=== PATIENT | male | born 1950 | race Caucasian/White ===

== ENCOUNTER 2017-06-02 08:04 | Outpatient (RCR) | payer MEDICARE, OTHER ==
[2017-03-10] MEDS: DEXAMETHASONE SOD PHOS 10MG/ML IVP PRN (08:46)
[2017-03-10 09:51] VITALS: BP 134/86
[2017-03-10] MEDS: HEPARIN FLSH (PORT) 500 UN/5ML IVP PRN (12:19)
--- NOTE | 2017-03-10 14:46 | ONC Progress Note - NP.Halsey ---
Patient History Date of Service Mar 10, 2017 Reason For Visit/HPI Patient is seen with his today for follow-up of his Waldenstrm's macroglobulinemia. Patient is seen for Rituxan. He continues to have pain in the left leg from neuropathy which remains stable. Patient continues on fentanyl patch and oxycodone for breakthrough pain as needed. He occasionally has episodes of insomnia. He has increased fatigue and weakness. Problem List (1) Waldenstrom macroglobulinemia (2) Neuropathic pain Oncology History DIAGNOSES 1. IgM paraproteinemia, highly suspicious for Waldenstrom macroglobulinemia. 2. 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 3. Pain due to neuropathy. CHIEF COMPLAINT The patient is here today for followup of his Waldenstrom macroglobulinemia. ONCOLOGY HISTORY The patient is a 66-year-old male who was followed in the past for erythrocytosis, treated with phlebotomies and his counts normalized. He presented recently with worsening neuropathy of the right lower extremity. He has been treated for gout with allopurinol and for the neuropathy with gabapentin. He saw a neurologist who diagnosed him with neuropathy and during his evaluation for neuropathy the patient was found to have 0.6 g/dL IgM lambda light chains specificity of monoclonal protein. He was also found to have serum IgM level of 751. Patient has been evaluated by Dr. Cornejo who requested a bone marrow test which was done on August 20, 2014 and reports of the bone marrow was hypercellular for age, 50% to 75% with trilineage hematopoiesis with maturation and mild dyspneic cardiopoiesis. There was no evidence of bone marrow involvement by lymphoplasmacytic lymphoma. His peripheral blood did reveal the presence of rare circulating plasmacytoid and large granular lymphocytes. No flow cytometry, FISH, cytogenetic, or molecular studies done from the bone marrow. CT chest, abdomen, and pelvis done on August 18, 2014 showed normal sized spleen, normal appearing lymph nodes in the chest, abdomen, and pelvis with right inguinal hernia containing omentum with small hypodense lesion within the left lobe of the liver medial segment most likely represents a focal fatty infiltration. On August 15, 2014 patient has beta 2-microglobulin which was normal at 1.7. Serum viscosity was normal at 1.29. IgG was normal at 843. IgA was normal at 123. IgM was high at 551. Hepatitis surface antigen was negative. Hepatitis B core IgM was also negative. Hepatitis A antibody IgM was negative. Hepatitis C antibody by RICKY was negative. Hepatitis B core was negative. Uric acid was normal at 4.3. Cold agglutinin was also negative. Skeletal bone survey done on August 25, 2014 came back inconclusive. A 24-hour urine showed normal kappa free light chain at 1.29 and lambda free light chain at 1.92. Beta-2 microglobulin was normal at 1.9. IgG was normal at 826, IgA was normal at 130, IgM was high at 490. Uric acid was normal at 4.4. The patient has been evaluated at the [facility] under the care of Dr. iNck Mejia. The patient had sural nerve biopsy which came back negative. He has also a good bone marrow aspiration biopsy, which was also negative, but molecular studies showed Mutation detected at C.794T more than C of NYD88 mutation, suggestive of Waldenstrom macroglobulinemia. The patient started treatment with ibrutinib 420 mg daily in November 2014, which was stopped in July 2015 because of progression of his disease. The patient started treatment with CARD chemotherapy with carfilzomib, rituximab and dexamethasone on May 14, 2015. The patient is here today for his cycle #6 of CARD chemotherapy for his Waldenstrom macroglobulinemia. His general condition is improving gradually. His neuropathic pain resolved completely, but on decreasing the dose of fentanyl patch from 25 to 12 mcg q.72h., his pain restarted becoming more annoying to him, but currently with 25 mcg, the patient is free of pain and free of any complaints currently. 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 The patient started treatment with cyclophosphamide with rituximab and dexamethasone on September 25, 2015. The patient quit taking cyclophosphamide because of the side-effect and he is maintained on rituximab and dexamethasone with stabilization of his IgM level and monoclonal protein. Patient is maintained on Rituxan every 4 weeks. Medical History Family History: FH: Alzheimers disease MOTHER FH: COPD (chronic obstructive pulmonary disease) MOTHER FH: brain aneurysm MOTHER FH: diabetes mellitus Maternal Grandmother FH: leukemia FATHER Psychosocial History Smoking History: No (States he chews 1 can every week) Smoking Status: Former Smoker Exposure to Second Hand Smoke?: No Medications and Allergies Active Scripts Fentanyl (Fentanyl) 1 Each Patch.td72, 50 MCG TD Q72H, #10 MCG Prov:JOSEJOSE BUSTOS Meri [facility], ONC 03/10/17 Hydrocodone Bit/Acetaminophen 7.5/300 (HYDROCODON-ACETAMINOPH 7.5-300) 1 Each Tablet, 1 EACH PO Q6H for pain, #60 TAB Prov:JOSE GARCIA Meri [facility], ONC 03/01/17 Pregabalin (LYRICA) 150 Mg Capsule, 150 MG PO BID, #60 CAPSULE 4 Refills Prov:JOSEJOSE J [facility], ONC 12/07/16 Zolpidem Tartrate (ZOLPIDEM TARTRATE) 10 Mg Tablet, 1 TAB PO QHS, #30 TAB 4 Refills Prov:JOSEJOSE J [facility], ONC 11/11/16 Tramadol Hcl (TRAMADOL HCL) 50 Mg Tablet, 50-100 MG PO PRN, #60 TAB 1 Refill Prov:JOSEJOSE J [facility], ONC 11/03/16 Duloxetine Hcl (CYMBALTA) 60 Mg Capsule.dr, 60 MG PO QDAY, #30 CAP 9 Refills Prov:JOSE GARCIA Meri [facility], ONC 08/15/16 Levofloxacin 750 Mg Tab (LEVAQUIN 750 MG TAB) 750 Mg Tablet, 750 MG PO DAILY, # 7 TAB Prov:JOSE GARCIA Meri [facility], ONC 06/27/16 Temazepam (TEMAZEPAM) 15 Mg Capsule, 15 MG PO QHS, #30 CAPSULE 2 Refills Prov:JOSEJOSE J [facility], ONC 05/13/16 Sucralfate (CARAFATE) 1 Gm Tablet, 1 TAB PO ACHS, #60 TAB 0 Refills Prov:YANET CASTILLO MD 05/03/16 Lorazepam (LORAZEPAM) 1 Mg Tab, 1 TAB PO Q4-6H Y for ANXIETY, #30 TAB 1 Refill Prov:SUHAIL GARCIAAIDEE Jerez [facility], ONC 02/08/16 Reported Medications Hydrocodone Bit/Acetaminophen (NORCO 5-325 TABLET) 1 Each Tablet, 1 EACH PO Q4H , TAB 03/03/17 Tamsulosin Hcl (FLOMAX) 0.4 Mg Cap.er.24h, 0.4 MG PO DAILY, CAP 05/06/16 Pantoprazole Sodium (PANTOPRAZOLE SODIUM) 40 Mg Tablet.dr, 40 MG PO BID, TAB.SR 05/06/16 [Magnesium] No Conflict Check, 500 MG PO QDAY 04/11/16 Atorvastatin (LIPITOR) 80 Mg Tab, 1 TAB PO QDAY, TAB 04/11/16 Metoprolol Succinate (METOPROLOL SUCCINATE) 50 Mg Tab.er.24h, 1 TAB PO QAM, TAB 04/11/16 Aspirin (ASPIRIN) 81 Mg Tab.chew, 81 MG PO QDAY, TAB.CHEW 08/31/15 Cholecalciferol (Vitamin D3) (D3-50) 50,000 Unit Capsule, 09823 UNIT PO DAILY, CAPSULE 08/15/14 Ubidecarenone (CO Q-10) 200 Mg Capsule, 200 MG PO QDAY, CAPSULE 08/15/14 [place]-3 Fatty Acids (FISH OIL) 300 Mg Capsule, 300 MG PO BID, CAPSULE 08/15/14 Allopurinol (ALLOPURINOL) 100 Mg Tablet, 300 MG PO QDAY, TAB 08/15/14 Allergies: Coded Allergies: No Known Drug Allergies (Unverified , 04/11/16) Review of System/Physical Exam Review of Systems All Systems Reviewed/Normal: Yes, Except as Noted Hematologic: Positive for Fatigue, Positive for Weakness Musculoskeletal: Positive for Muscle Pain (mostly concentrated to the left lower extremity nerve pain) Neurologic: Numbness of Feet Psychiatric: Depression Physical Exam Vital Signs Temperature: 98.2 Pulse: 66 BP Systolic: 134 BP Diastolic: 86 Respiratory Rate: 18 O2 SAT: 92 O2 Delivery: Room Air Height (inches) 67.50 Weight lb: 216 Weight oz: 5.0 Weight Kg (Rafa): 101.29 Pain: 6 ECOG Score: 1 General: Stable, Well Developed, Well Nourished, Not In Acute Distress HEENT: No Trauma, No Conjunctivitis, No Icterus Neck: Supple Lungs: Clear to Auscultation Heart: Regular Rate, Regular Rhythm Abdomen: Soft and Nontender, No Hepatosplenomegaly Extremities: No Cyanosis, No Clubbing, No Edema Psychiatric: Mood appears normal, Affect appears normal Skin: No Skin Rashes, No Bruising Diagnostic Studies Diagnostic Studies Laboratory Item Value Date Time White Blood Count 4.5 k/uL 03/01/17 0830 Hemoglobin 15.8 g/dL 03/01/17 0830 Platelet Count 201 K/uL 03/01/17 0830 Protein Electrophoresis (T) 5.90 g/dL L 03/01/17 0830 Total Protein 5.6 gm/dl L 03/01/17 0830 Gamma Globulins (%) 0.32 g/dL L 03/01/17 0830 Prostate Specific Antigen 1.56 ng/ml 03/01/17 0830 Immunoglobulin G 239 mg/dL L 03/01/17 0830 Immunoglobulin A 20 mg/dL L 03/01/17 0830 Free [place] Light Chains, Quant 0.22 mg/dL L 03/01/17 0830 Assessment and Plan Assessment & Plan ASSESSMENT 1. Waldenstrom macroglobulinemia with IgM paraproteinemia with IgM lambda monoclonal protein. Patient currently on treatment with rituximab as he could not tolerate cyclophosphamide. Patient started treatment with ibrutinib with initial response, then progressed after that. He started treatment with CaRD chemotherapy with Kyprolis, rituximab and dexamethasone between May 14, 2015 through August 28, 2015, and the patient received six cycles with response, but he developed Kyprolis-induced cardiomyopathy, so the treatment was stopped. He then received treatment with rituximab, dexamethasone and cyclophosphamide , but he stopped cyclophosphamide because of the side effects. He is maintained with rituximab and dexamethasone with stabilization of his monoclonal protein. He then stopped treatment for two months but started to have pain in his left leg from his neuropathy, so the patient resumed treatment with rituximab again in November 2016. He has had some improvement but it is minimal. He will continue rituximab on monthly intervals and will follow in a month from now with CBC, chem panel, LDH uric acid and myeloma profile. I did discuss the possibility of nerve ablation and his will call [facility] and discuss the procedure with Dr. Mo. SPEP is 0.31 g/dL of protein in the gamma region 2. Neuropathy due to Waldenstrom macroglobulinemia. He is getting better with resuming rituximab. He is currently on Lyrica, Fentanyl and [place]. We will continue the same treatment. I will refill fentanyl today. Patient will visit with Dr. Mo regarding nerve pain and possible nerve ablation 3. Gout with gouty arthritis on allopurinol. 4. Hypertension, on treatment. 5. Gastroesophageal reflux disease, on Protonix. PLAN 1. Rituximab today and continue monthly treatments 2. Patient to return in one month with CBC, chem panel, LDH, uric acid and myeloma profile. 3. Patient is to contact us for any new concerns or complaints I personally spent a total of 20 minutes. Of that 20 minutes was counseling/ coordination of patient's care. See my note above for details. Copies to: KEARA MO MD, NANCY J [facility], ONC Mar 10, 2017 14:46
[2017-03-30 08:22] VITALS: BP 124/76
[2017-03-30 08:38] LABS: PLATELET COUNT, AUTOMATED 200 K/uL (150-450)
--- NOTE | 2017-04-07 08:40 | ONC Progress Note - NP.Halsey ---
Patient History Date of Service Apr 07, 2017 Reason For Visit/HPI Patient is seen with his today for follow-up of his Waldenstrm's macroglobulinemia. Patient continues on Rituxan infused every 21 days. His immunoglobulin levels remain low. He continues to have pain in the left leg from neuropathy which has increased over the last month. He is following with neurology for further evaluation and recommendations. Patient continues on fentanyl patch and oxycodone for breakthrough pain as needed. He is also on Lyrica. Patient is having some difficulty with ambulation and significant difficulty with sleeping due to the pain. He has used ice packs which is about the only form of management that decreases the pain. No other symptoms today. Problem List (1) Left leg pain (2) Neuropathic pain (3) Waldenstrom macroglobulinemia Oncology History DIAGNOSES 1. IgM paraproteinemia, highly suspicious for Waldenstrom macroglobulinemia. 2. 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 3. Pain due to neuropathy. CHIEF COMPLAINT The patient is here today for followup of his Waldenstrom macroglobulinemia. ONCOLOGY HISTORY The patient is a 66-year-old male who was followed in the past for erythrocytosis, treated with phlebotomies and his counts normalized. He presented recently with worsening neuropathy of the right lower extremity. He has been treated for gout with allopurinol and for the neuropathy with gabapentin. He saw a neurologist who diagnosed him with neuropathy and during his evaluation for neuropathy the patient was found to have 0.6 g/dL IgM lambda light chains specificity of monoclonal protein. He was also found to have serum IgM level of 751. Patient has been evaluated by Dr. Cornejo who requested a bone marrow test which was done on August 20, 2014 and reports of the bone marrow was hypercellular for age, 50% to 75% with trilineage hematopoiesis with maturation and mild dyspneic cardiopoiesis. There was no evidence of bone marrow involvement by lymphoplasmacytic lymphoma. His peripheral blood did reveal the presence of rare circulating plasmacytoid and large granular lymphocytes. No flow cytometry, FISH, cytogenetic, or molecular studies done from the bone marrow. CT chest, abdomen, and pelvis done on August 18, 2014 showed normal sized spleen, normal appearing lymph nodes in the chest, abdomen, and pelvis with right inguinal hernia containing omentum with small hypodense lesion within the left lobe of the liver medial segment most likely represents a focal fatty infiltration. On August 15, 2014 patient has beta 2-microglobulin which was normal at 1.7. Serum viscosity was normal at 1.29. IgG was normal at 843. IgA was normal at 123. IgM was high at 551. Hepatitis surface antigen was negative. Hepatitis B core IgM was also negative. Hepatitis A antibody IgM was negative. Hepatitis C antibody by RICKY was negative. Hepatitis B core was negative. Uric acid was normal at 4.3. Cold agglutinin was also negative. Skeletal bone survey done on August 25, 2014 came back inconclusive. A 24-hour urine showed normal kappa free light chain at 1.29 and lambda free light chain at 1.92. Beta-2 microglobulin was normal at 1.9. IgG was normal at 826, IgA was normal at 130, IgM was high at 490. Uric acid was normal at 4.4. The patient has been evaluated at the [facility] under the care of Dr. Nick Mejia. The patient had sural nerve biopsy which came back negative. He has also a good bone marrow aspiration biopsy, which was also negative, but molecular studies showed Mutation detected at C.794T more than C of NYD88 mutation, suggestive of Waldenstrom macroglobulinemia. The patient started treatment with ibrutinib 420 mg daily in November 2014, which was stopped in July 2015 because of progression of his disease. The patient started treatment with CARD chemotherapy with carfilzomib, rituximab and dexamethasone on May 14, 2015. The patient is here today for his cycle #6 of CARD chemotherapy for his Waldenstrom macroglobulinemia. His general condition is improving gradually. His neuropathic pain resolved completely, but on decreasing the dose of fentanyl patch from 25 to 12 mcg q.72h., his pain restarted becoming more annoying to him, but currently with 25 mcg, the patient is free of pain and free of any complaints currently. 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 The patient started treatment with cyclophosphamide with rituximab and dexamethasone on September 25, 2015. The patient quit taking cyclophosphamide because of the side-effect and he is maintained on rituximab and dexamethasone with stabilization of his IgM level and monoclonal protein. Patient is maintained on Rituxan every 4 weeks. Medical History Family History: FH: Alzheimers disease MOTHER FH: COPD (chronic obstructive pulmonary disease) MOTHER FH: brain aneurysm MOTHER FH: diabetes mellitus Maternal Grandmother FH: leukemia FATHER Psychosocial History Social History He is with a daughter Occupational History He is currently retired Smoking History: No (States he chews 1 can every week) Smoking Status: Former Smoker Exposure to Second Hand Smoke?: No Medications and Allergies Active Scripts Hydrocodone Bit/Acetaminophen 7.5/300 (HYDROCODON-ACETAMINOPH 7.5-300) 1 Each Tablet, 1 EACH PO Q6H for pain, #60 TAB Prov:JOSE GARCIA [facility] ONC 04/04/17 Zolpidem Tartrate (ZOLPIDEM TARTRATE) 10 Mg Tablet, 1 TAB PO QHS, #30 TAB 4 [facility] 03/30/17 Fentanyl (Fentanyl) 1 Each Patch.td72, 50 MCG TD Q72H, #10 MCG [facility] 03/10/17 Pregabalin (LYRICA) 150 Mg Capsule, 150 MG PO BID, #60 CAPSULE 4 Refills [facility] 12/07/16 Tramadol Hcl (TRAMADOL HCL) 50 Mg Tablet, 50-100 MG PO PRN, #60 TAB 1 [facility] 11/03/16 Duloxetine Hcl (CYMBALTA) 60 Mg Capsule.dr, 60 MG PO QDAY, #30 CAP 9 Refills Prov:JOSE GARCI[facility]RENU, ONC 08/15/16 Levofloxacin 750 Mg Tab (LEVAQUIN 750 MG TAB) 750 Mg Tablet, 750 MG PO DAILY, # 7 TAB Prov:JOSE GARCIA [facility], ONC 06/27/16 Temazepam (TEMAZEPAM) 15 Mg Capsule, 15 MG PO QHS, #30 CAPSULE 2 [facility]ills [facility] 05/13/16 Sucralfate (CARAFATE) 1 Gm Tablet, 1 TAB PO ACHS, #60 TAB 0 Refills Prov:YANET CASTILLO MD 05/03/16 Lorazepam (LORAZEPAM) 1 Mg Tab, 1 TAB PO Q4-6H Y for ANXIETY, #30 TAB 1 Refill Prov:JOSE GARCIA [facility], [facility] 02/08/16 Reported Medications Hydrocodone Bit/Acetaminophen (NORCO 5-325 TABLET) 1 Each Tablet, 1 EACH PO Q4H , TAB 03/03/17 Tamsulosin Hcl (FLOMAX) 0.4 Mg Cap.er.24h, 0.4 MG PO DAILY, CAP 05/06/16 Pantoprazole Sodium (PANTOPRAZOLE SODIUM) 40 Mg Tablet.dr, 40 MG PO BID, TAB.SR 05/06/16 [Magnesium] No Conflict Check, 500 MG PO QDAY 04/11/16 Atorvastatin (LIPITOR) 80 Mg Tab, 1 TAB PO QDAY, TAB 04/11/16 Metoprolol Succinate (METOPROLOL SUCCINATE) 50 Mg Tab.er.24h, 1 TAB PO QAM, TAB 04/11/16 Aspirin (ASPIRIN) 81 Mg Tab.chew, 81 MG PO QDAY, TAB.CHEW 08/31/15 Cholecalciferol (Vitamin D3) (D3-50) 50,000 Unit Capsule, 99463 UNIT PO DAILY, CAPSULE 08/15/14 Ubidecarenone (CO Q-10) 200 Mg Capsule, 200 MG PO QDAY, CAPSULE 08/15/14 [place]-3 Fatty Acids (FISH OIL) 300 Mg Capsule, 300 MG PO BID, CAPSULE 08/15/14 Allopurinol (ALLOPURINOL) 100 Mg Tablet, 300 MG PO QDAY, TAB 08/15/14 Allergies: Coded Allergies: No Known Drug Allergies (Unverified , 04/11/16) Review of System/Physical Exam Review of Systems All Systems Reviewed/Normal: Yes, Except as Noted Musculoskeletal: Positive for Muscle Pain, Positive for Other (stream nerve pain noted on the left leg typically from the knee down to the foot which is increased over the last 2 weeks) Neurologic: Numbness of Feet (left lower extremity), Tingling of Feet (left foot) Psychiatric: Depression (related to ongoing pain) Physical Exam Vital Signs Temperature: 96.6 Pulse: 75 BP Systolic: 124 BP Diastolic: 76 Respiratory Rate: 14 O2 SAT: 91 O2 Delivery: Room Air Height (inches) 67.50 Weight lb: 216 Weight oz: 5.0 Weight Kg (Rafa): 97.323206 Pain: 7 ECOG Score: 1 General: Stable, Well Developed, Well Nourished, Not In Acute Distress HEENT: No Trauma Neck: Supple Lungs: Clear to Auscultation Heart: Regular Rate, Regular Rhythm, No Gallops Abdomen: Soft and Nontender, No Hepatosplenomegaly, No Masses Extremities: No Clubbing, No Edema Psychiatric: Mood appears normal, Affect appears normal, Other (spouse is with him today and is very supportive) Skin: No Skin Rashes, No Bruising Diagnostic Studies Diagnostic Studies Laboratory Laboratory Tests 03/30/17 08:24 Laboratory Tests 03/30/17 08:24: White Blood Count 6.8, Red Blood Count 5.21, Hemoglobin 17.0, Hematocrit 47.8, Mean Corpuscular Volume 91.7, Mean Corpuscular Hemoglobin 32.6, Mean Corpuscular Hemoglobin Concent 35.6, Red Cell Distribution Width 12.9, Platelet Count 200, Mean Platelet Volume 8.1, Neutrophils (%) (Auto) 63.8, Lymphocytes (% ) (Auto) 20.9, Monocytes (%) (Auto) 12.0, Eosinophils (%) (Auto) 2.2, Basophils (%) (Auto) 1.1, Nucleated RBC Relative Count (auto) 0.3, Neutrophils # (Auto) 4.3, Lymphocytes # (Auto) 1.4, Monocytes # (Auto) 0.8, Eosinophils # (Auto) 0.2 , Basophils # (Auto) 0.1, Nucleated RBC Absolute Count (auto) 0.02, Peripheral Blood Smear No, Sodium Level 141, Potassium Level 3.9, Chloride Level 103, Carbon Dioxide Level 29, Blood Urea Nitrogen 15, Creatinine 1.10, Glomerular Filtration Rate Calc > 60.0, Random Glucose 100, Uric Acid 4.0, Calcium Level 9.3, Total Bilirubin 2.1, Aspartate Amino Transf (AST/SGOT) 23, Alanine Aminotransferase (ALT/SGPT) 34, Alkaline Phosphatase 127, Lactate Dehydrogenase 433, Protein Electrophoresis (T) 6.20, Total Protein 6.2, Albumin 3.9, Albumin % (PEP) 4.28, Jieef-7-Svcnebupt 0.32, Cuacu-4-Pynanwqhg 0.58, Beta Globulins 0.69, Qnab-0-Oczpngkodphuf 1.9, Gamma Globulins (%) 0.33, Immunoglobulin G 274, Immunoglobulin A 21, Immunoglobulin M 51, TAN & Serum PEP Interpretation See note, Serum Immunofixation Tan done, Free Zeb Light Chains, Quant 0.20, Free Lambda Light Chains, Quant 0.61, Free Zeb/Lambda Light Chain Ratio 0.33 Assessment and Plan Assessment & Plan ASSESSMENT 1. Waldenstrom macroglobulinemia with IgM paraproteinemia with IgM lambda monoclonal protein. Patient currently on treatment with rituximab as he could not tolerate cyclophosphamide. Patient started treatment with ibrutinib with initial response, then progressed after that. He started treatment with CaRD chemotherapy with Kyprolis, rituximab and dexamethasone between May 14, 2015 through August 28, 2015, and the patient received six cycles with response, but he developed Kyprolis-induced cardiomyopathy, so the treatment was stopped. He then received treatment with rituximab, dexamethasone and cyclophosphamide , but he stopped cyclophosphamide because of the side effects. He is maintained with rituximab and dexamethasone with stabilization of his monoclonal protein. He then stopped treatment for two months but started to have pain in his left leg from his neuropathy, so the patient resumed treatment with rituximab again in November 2016. He has had some improvement but it is minimal. He will continue rituximab on monthly intervals and will follow in a month from now with CBC, chem panel, LDH uric acid and myeloma profile. I have discussed possible nerve ablation or further evaluation of his nerve pain. Patient is scheduled to follow with Dr. Overton on 04/21/2017. She is also following with a housecleaner floor 2. Neuropathy due to Waldenstrom macroglobulinemia. Review slowly he noticed improvement with Rituxan however more recently pain has increased. He is currently on Lyrica, Fentanyl and [place]. Further review with Dr. Overton later this month 3. Gout with gouty arthritis on allopurinol. 4. Hypertension, on treatment. 5. Gastroesophageal reflux disease, on Protonix. PLAN 1. Rituximab today and continue monthly treatments 2. Patient to return in one month with CBC, chem panel, LDH, uric acid and myeloma profile. 3. Patient is to contact us for any new concerns or complaints I personally spent a total of 20 minutes. Of that 20 minutes was counseling/ coordination of patient's care. See my note above for details. JOSE GARCIA [facility], ONC Apr 07, 2017 08:40
[2017-04-07] MEDS: NS(*) 0.9% 100 ML BAG 100 ML IVPB PRN (09:02)
[2017-04-07] MEDS: DEXAMETHASONE SOD PHOS 10MG/ML IVP PRN (09:02)
[2017-04-07 09:12] VITALS: BP 116/77
[2017-04-07] MEDS: HEPARIN FLSH (PORT) 500 UN/5ML IVP PRN (13:09)
[2017-04-07 13:12] VITALS: BP 131/88
[2017-04-25 08:14] VITALS: BP 116/60
[2017-04-25 08:24] LABS: PLATELET COUNT, AUTOMATED 206 K/uL (150-450)
[2017-05-05 08:31] VITALS: BP 98/80
[2017-05-05] MEDS: NS(*) 0.9% 100 ML BAG 100 ML IVPB PRN (09:07)
[2017-05-05] MEDS: DEXAMETHASONE SOD PHOS 10MG/ML IVP PRN (09:07)
[2017-05-05] MEDS: HEPARIN FLSH (PORT) 500 UN/5ML IVP PRN (09:08)
[2017-05-05 12:41] VITALS: BP 119/72
--- NOTE | 2017-05-05 16:46 | ONCOLOGY FOLLOW UP NOTE ---
EVENT DATE: May 05, 2017 DIAGNOSES 1. IgM paraproteinemia, highly suspicious for Waldenstrom macroglobulinemia. 2. 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 3. Pain due to neuropathy. CHIEF COMPLAINT The patient is here today for followup of his Waldenstrom macroglobulinemia, on treatment with rituximab. ONCOLOGY HISTORY The patient is a 66-year-old male who was followed in the past for erythrocytosis, treated with phlebotomies and his counts normalized. He presented recently with worsening neuropathy of the right lower extremity. He has been treated for gout with allopurinol and for the neuropathy with gabapentin. He saw a neurologist who diagnosed him with neuropathy and during his evaluation for neuropathy the patient was found to have 0.6 g/dL IgM lambda light chains specificity of monoclonal protein. He was also found to have serum IgM level of 751. Patient has been evaluated by Dr. Cornejo who requested a bone marrow test which was done on August 20, 2014 and reports of the bone marrow was hypercellular for age, 50% to 75% with trilineage hematopoiesis with maturation and mild dyspneic cardiopoiesis. There was no evidence of bone marrow involvement by lymphoplasmacytic lymphoma. His peripheral blood did reveal the presence of rare circulating plasmacytoid and large granular lymphocytes. No flow cytometry, FISH, cytogenetic, or molecular studies done from the bone marrow. CT chest, abdomen, and pelvis done on August 18, 2014 showed normal sized spleen, normal appearing lymph nodes in the chest, abdomen, and pelvis with right inguinal hernia containing omentum with small hypodense lesion within the left lobe of the liver medial segment most likely represents a focal fatty infiltration. On August 15, 2014 patient has beta 2-microglobulin which was normal at 1.7. Serum viscosity was normal at 1.29. IgG was normal at 843. IgA was normal at 123. IgM was high at 551. Hepatitis surface antigen was negative. Hepatitis B core IgM was also negative. Hepatitis A antibody IgM was negative. Hepatitis C antibody by RICKY was negative. Hepatitis B core was negative. Uric acid was normal at 4.3. Cold agglutinin was also negative. Skeletal bone survey done on August 25, 2014 came back inconclusive. A 24-hour urine showed normal kappa free light chain at 1.29 and lambda free light chain at 1.92. Beta-2 microglobulin was normal at 1.9. IgG was normal at 826, IgA was normal at 130, IgM was high at 490. Uric acid was normal at 4.4. The patient has been evaluated at the [facility] under the care of Dr. Nick Mejia. The patient had sural nerve biopsy which came back negative. He has also a good bone marrow aspiration biopsy, which was also negative, but molecular studies showed Mutation detected at C.794T more than C of NYD88 mutation, suggestive of Waldenstrom macroglobulinemia. The patient started treatment with ibrutinib 420 mg daily in November 2014, which was stopped in July 2015 because of progression of his disease. The patient started treatment with CARD chemotherapy with carfilzomib, rituximab and dexamethasone on May 14, 2015. The patient is here today for his cycle #6 of CARD chemotherapy for his Waldenstrom macroglobulinemia. His general condition is improving gradually. His neuropathic pain resolved completely, but on decreasing the dose of fentanyl patch from 25 to 12 mcg q.72h., his pain restarted becoming more annoying to him, but currently with 25 mcg, the patient is free of pain and free of any complaints currently. 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 The patient started treatment with cyclophosphamide with rituximab and dexamethasone on September 25, 2015. The patient quit taking cyclophosphamide because of the side-effect and he is maintained on rituximab and dexamethasone with stabilization of his IgM level and monoclonal protein. HISTORY OF PRESENT ILLNESS Patient is here today for followup of his Waldenstrom macroglobulinemia on treatment with rituximab. He is doing fine currently except for occasional nausea and vomiting and constipation. He has pain in his hands from arthritis, but he has worsening pain in the left leg and left foot with tingling which is getting worse, and the patient is followed by neuro-oncologist at [facility] for that and he is under investigation currently. Other than that he is really doing fine and stable. PAST MEDICAL HISTORY 1. Hypertension. 2. Hypertriglyceridemia. 3. Gout. 4. Gouty arthritis. 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 PAST SURGICAL HISTORY 1. Cholecystectomy. 2. Appendectomy. 3. Bilateral hip arthroplasties. 4. Knee arthroscopy x2. 5. Right foot surgery. FAMILY HISTORY Father had chronic leukemia, most probably CLL. SOCIAL HISTORY Patient is . He has 2 daughters. 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 He drinks alcohol socially. He chews tobacco, but denies smoking tobacco and denies any abuse of illicit drugs. ALLERGIES No known drug allergies. CURRENT MEDICATIONS 1. Amitriptyline 50 mg at bedtime. 2. Fentanyl patch 25 mcg q.72h. 3. Ambien 12.5 mg at bedtime p.r.n. 4. Lyrica 50 mg two tablets at bedtime. 5. Ativan 1 mg q.4-6h. p.r.n. for anxiety. 6. Lipitor 80 mg at bedtime. 7. Vitamin D3 at 50,000 units orally daily. 8. CoQ10 at 200 mg daily. REVIEW OF SYSTEMS CONSTITUTIONAL: He has excessive sweating. HEENT: Ears: No tinnitus or hearing problem. Nose: No nasal discharge or epistaxis. Throat: No sore throat or mouth ulcers. Eyes: No diplopia or visual changes. GASTROINTESTINAL: Patient has nausea, vomiting and constipation occasionally. MUSCULOSKELETAL: He has pain in the hands from arthritis. NEUROLOGICAL: He has achy pain in the left leg and left foot with tingling. RESPIRATORY: He has occasional shortness of breath. No cough, expectoration or hemoptysis. CARDIOVASCULAR: No chest pain, orthopnea, or paroxysmal nocturnal dyspnea (PND) . No edema. No palpitations. GENITOURINARY: No hematuria or dysuria. HEMATOLOGIC/LYMPHATIC: No bleeding or easy bruising. He is weak, tired, and fatigued. No enlarged lymph nodes. SKIN: No skin rash or lumps. PSYCHIATRIC: No anxiety or depression. PHYSICAL EXAMINATION GENERAL: Looks stable. Well-developed, well-nourished, and in no acute distress. VITAL SIGNS: Blood pressure 98/80, pulse 90 per minute, respirations 16 per minute, temperature 97, pulse ox 89% on room air. HEENT: Head: Atraumatic. No sinus tenderness to palpation. Eyes: No icterus or conjunctivitis. Mouth and throat: No oral thrush or mucositis. NECK: Supple. No cervical or supraclavicular lymphadenopathy. LUNGS: Clear to auscultation and percussion bilaterally. HEART: Regular rate and rhythm. No gallops, murmurs, clicks or rubs. ABDOMEN: Soft and lax. No tenderness. No hepatosplenomegaly. No masses. EXTREMITIES: No cyanosis, clubbing or edema. LYMPHATICS: No peripheral lymphadenopathy. NEUROLOGICAL: Conscious, alert and oriented times three. No focal motor or sensory deficits. PSYCHIATRIC: Mood and affect appear normal. SKIN: No skin rash, bruise or purpuric eruption. DIAGNOSTIC DATA CBC showed white count 5.4, hemoglobin 16.5, hematocrit 47.6, platelets 206, 000. Chem panel totally normal except total bilirubin of 1.5. IgG level is low at 287, IgA is 26, IgM 49, which is down from 51. [place] free light chain is normal at 0.1 and lambda free light chain is normal at 0.67. Serum protein immunoelectrophoresis shows a faint band in IgM lambda. ASSESSMENT 1. Waldenstrom macroglobulinemia with IgM paraproteinemia with IgM lambda monoclonal protein. Patient currently on treatment with rituximab, as he could not tolerate cyclophosphamide with that. Patient started treatment with ibrutinib with initial response, then progressed after that. He started treatment with CaRD chemotherapy with Kyprolis, rituximab and dexamethasone between May 14, 2015 through August 28, 2015, and the patient received six cycles with response, but he developed Kyprolis-induced cardiomyopathy, so the treatment was stopped after that. He received after that treatment with rituximab, dexamethasone and cyclophosphamide, but he stopped cyclophosphamide because of the side effects, and he is maintained after that with rituximab and dexamethasone with stabilization of his monoclonal protein. His treatment with rituximab was stopped for two months, but he started to have the pain in his left leg again from his neuropathy, so the patient restarted on treatment with rituximab again in November 2016. Recently he has worsening pain in his left leg and left foot from his neuropathy, and the patient is followed at [facility] for that right now. His monoclonal protein with IgM lambda actually is under control currently with rituximab therapy, so I am planning to proceed with his rituximab at monthly intervals. I will see him again in one month with CBC, chem panel, LDH uric acid and myeloma profile. 2. Neuropathy due to Waldenstrom macroglobulinemia with worsening pain currently. Patient is under investigation at [facility]. 3. Gout with gouty arthritis, on allopurinol. 4. Hypertension, on treatment. 5. Gastroesophageal reflux disease, on Protonix. PLAN 1. Rituximab therapy today. 2. Patient to return in one month with CBC, chem panel, LDH, uric acid and myeloma profile. 3. Patient is to contact us for any new concerns or complaints. MTDD
[2017-05-24 10:29] LABS: PLATELET COUNT, AUTOMATED 172 K/uL (150-450)
[2017-05-24 10:40] VITALS: BP 100/67
[~2017-06-02] VITALS: Ht 171.4 cm; Wt 100.7 kg
[~2017-06-02 08:04] MED LIST: ACETAMINOPHEN 325 MG TAB PO PRN; ALE70 PO; ALLO100T70 PO; ALTEPLASE RECOMB 2 MG VIAL IVP PRN; AMIT-106 PO; AMIT-108 PO; ASPI-715 PO; ASPI81TA94 PO; ATR80PT PO; CEP500 PO; CYCL50CA PO; DEX4 PO; DEXTROSE 5%(*) 100 ML BAG 100 ML IVPB PRN; DOCU-416 PO; DULO30CA35 PO; DULO60CA56 PO; ESOM40CA42 PO; EZET1TAB61 PO; EZET1TAB70 PO; FAM20 PO; FENT-17 TD; FENT-19 TD; FENT-60 TD; FENT1PAT40 TD; FOLI20CA2 PO; GABA-549 PO; GOLYTE PO; HYDR-2952 PO; HYDR-4308 PO; HYDR-4309 PO; HYDR-6016 PO; IBU800 PO; LAC100PT PO; LEV500 PO; LEVO750T44 PO; LIDOCAINE/SOD BICARB 8.4% SYR ID PRN; LISI5TAB25 PO; LOR1 PO; LOR5/325 PO; LOR7.5/325 PO; LORA-1456 PO; LOSA-57 PO; MAGNESIUM PO; MET50 PO; METO50TA19 PO; METOPROLOL; METXL50 PO; MULT-1335 PO; MULT1CAP59 PO; NIA500 PO; NS(*) 0.9% 500 ML BAG 500 ML IV PRN; OMEG300C PO; ONDA8TAB94 PO; OXY10 PO; PANT40TA65 PO; PHENA200 PO; PREG100C44 PO; PREG150C33 PO; PREG50CA48 PO; PROC10TA4 PO; RAME8TAB43 PO; RITUXIMAB IV ONE; SIMV-49 PO; SIMVASTATIN; SUCR1TAB85 PO; TAMS0.4C25 PO; TEMA-1 PO; TRA50 PO; TRAM-420 PO; TRAZ-163 PO; UBID200C21 PO; VAL80 PO; VALS1TAB61 PO; WAR5 PO; WARF10TA29 PO; WATER STERILE 10 ML VIAL IVP PRN; ZOLP-350 PO; ZOLP-358 PO; ZOLP12.546 PO; [UNRECOGNIZED DRUG - CODE] PO; [UNRECOGNIZED DRUG - OTHER] IV ONE; diphenhydrAMINE 25 MG CAP PO PRN
[2017-06-02 08:11] VITALS: BP 106/81
[2017-06-02] MEDS: DEXAMETHASONE SOD PHOS 10MG/ML IVP PRN (08:43)
[2017-06-02] MEDS ORDERED: [UNRECOGNIZED DRUG - OTHER] IV ONE (09:30)
[2017-06-02] MEDS ORDERED: RITUXIMAB IV ONE (09:30)
--- NOTE | 2017-06-02 10:37 | ONC Progress Note - NP.Halsey ---
Patient History Date of Service Jun 02, 2017 Reason For Visit/HPI Patient is seen with his today for follow-up of his Waldenstrm's macroglobulinemia. He recently was ill with flulike symptoms and was treated with Tamiflu through his primary care provider. Patient reports that over the last several days he feels like his symptoms have completely resolved. Patient continues on Rituxan infused every 21 days. His immunoglobulin levels remain low. He continues to have pain in the left leg from neuropathy which has increased over the last month. He has followed with neurology at the [facility] with no recommendations. He is currently scheduled to follow with per meter bone and joint and will complete an MRI of the back, lumbar spine. Patient denies any pain in the back or spine at this time but continues to have the radiating pain. Patient continues on fentanyl patch and oxycodone for breakthrough pain as needed. He is also on Lyrica and 150 over grams twice daily. He is interested in trying to see if an increased dose will help his symptoms. He is weak and fatigued. Patient reports that he tolerates Rituxan therapy without difficulty but it does cause fatigue for 2-3 days post infusion Problem List (1) Waldenstrom macroglobulinemia (2) Left leg pain (3) Neuropathic pain Oncology History DIAGNOSES 1. IgM paraproteinemia, highly suspicious for Waldenstrom macroglobulinemia. 2. 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 3. Pain due to neuropathy. CHIEF COMPLAINT The patient is here today for followup of his Waldenstrom macroglobulinemia. ONCOLOGY HISTORY The patient is a 66-year-old male who presented with neuropathy of the lower extremity. He has been treated for gout with allopurinol and for the neuropathy with gabapentin. He saw a neurologist who diagnosed him with neuropathy and during his evaluation for neuropathy the patient was found to have 0.6 g/dL IgM lambda light chains specificity of monoclonal protein. He was also found to have serum IgM level of 751. Patient has been evaluated by Dr. Cornejo who requested a bone marrow test which was done on August 20, 2014 and reports of the bone marrow was hypercellular for age, 50% to 75% with trilineage hematopoiesis with maturation and mild dyspneic cardiopoiesis. There was no evidence of bone marrow involvement by lymphoplasmacytic lymphoma. His peripheral blood did reveal the presence of rare circulating plasmacytoid and large granular lymphocytes. No flow cytometry, FISH, cytogenetic, or molecular studies done from the bone marrow. CT chest, abdomen, and pelvis done on August 18, 2014 showed normal sized spleen, normal appearing lymph nodes in the chest, abdomen, and pelvis with right inguinal hernia containing omentum with small hypodense lesion within the left lobe of the liver medial segment most likely represents a focal fatty infiltration. On August 15, 2014 patient has beta 2-microglobulin which was normal at 1.7. Serum viscosity was normal at 1.29. IgG was normal at 843. IgA was normal at 123. IgM was high at 551. Hepatitis surface antigen was negative. Hepatitis B core IgM was also negative. Hepatitis A antibody IgM was negative. Hepatitis C antibody by RICKY was negative. Hepatitis B core was negative. Uric acid was normal at 4.3. Cold agglutinin was also negative. Skeletal bone survey done on August 25, 2014 came back inconclusive. A 24-hour urine showed normal kappa free light chain at 1.29 and lambda free light chain at 1.92. Beta-2 microglobulin was normal at 1.9. IgG was normal at 826, IgA was normal at 130, IgM was high at 490. Uric acid was normal at 4.4. The patient has been evaluated at the [facility] under the care of Dr. Nick Mejia. The patient had sural nerve biopsy which came back negative. He has also a good bone marrow aspiration biopsy, which was also negative, but molecular studies showed Mutation detected at C.794T more than C of NYD88 mutation, suggestive of Waldenstrom macroglobulinemia. The patient started treatment with ibrutinib 420 mg daily in November 2014, which was stopped in July 2015 because of progression of his disease. The patient was treated with CARD chemotherapy with carfilzomib, rituximab and dexamethasone completing six cycles but was discontinued because of development of Kyprolis induced cardiomyopathy on August 28, 2015. The patient started treatment with cyclophosphamide with rituximab and dexamethasone on September 25, 2015. Patient is maintained on Rituxan every 4 weeks. Medical History Family History: FH: Alzheimers disease MOTHER FH: COPD (chronic obstructive pulmonary disease) MOTHER FH: brain aneurysm MOTHER FH: diabetes mellitus Maternal Grandmother FH: leukemia FATHER Psychosocial History Social History He is with a daughter Occupational History He is currently retired Smoking History: No (States he chews 1 can every week) Smoking Status: Former Smoker Exposure to Second Hand Smoke?: No Medications and Allergies Active Scripts Pregabalin (LYRICA) 200 Mg Cap, 200 MG PO BID, #60 CAP 2 Refills Prov:JOSEJOSE J [facility], ONC 06/02/17 Fentanyl (Fentanyl) 1 Each Patch.td72, 50 MCG TD Q72H, #10 MCG Prov:JOSEJOSE J [facility], ONC 06/02/17 Zolpidem Tartrate (ZOLPIDEM TARTRATE) 10 Mg Tablet, 1 TAB PO QHS, #30 TAB 4 Refills Prov:JOSEJOSE J [facility], ONC 03/30/17 Tramadol Hcl (TRAMADOL HCL) 50 Mg Tablet, 50-100 MG PO PRN, #60 TAB 1 Refill Prov:JOSE GARCIA [facility], ONC 11/03/16 Duloxetine Hcl (CYMBALTA) 60 Mg Capsule.dr, 60 MG PO QDAY, #30 CAP 9 Refills Prov:JOSEJOSE J [facility], ONC 08/15/16 Temazepam (TEMAZEPAM) 15 Mg Capsule, 15 MG PO QHS, #30 CAPSULE 2 Refills Prov:JOSEJOSE Meri [facility], ONC 05/13/16 Lorazepam (LORAZEPAM) 1 Mg Tab, 1 TAB PO Q4-6H Y for ANXIETY, #30 TAB 1 Refill Prov:JOSE GARCIA Meri [facility], ONC 02/08/16 Reported Medications Tamsulosin Hcl (FLOMAX) 0.4 Mg Cap.er.24h, 0.4 MG PO DAILY, CAP 05/06/16 Pantoprazole Sodium (PANTOPRAZOLE SODIUM) 40 Mg Tablet.dr, 40 MG PO QDAY, TAB.SR 05/06/16 [Magnesium] No Conflict Check, 500 MG PO QDAY 04/11/16 Atorvastatin (LIPITOR) 80 Mg Tab, 1 TAB PO QDAY, TAB 04/11/16 Metoprolol Succinate (METOPROLOL SUCCINATE) 50 Mg Tab.er.24h, 1 TAB PO QAM, TAB 04/11/16 Aspirin (ASPIRIN) 81 Mg Tab.chew, 81 MG PO QDAY, TAB.CHEW 08/31/15 Cholecalciferol (Vitamin D3) (D3-50) 50,000 Unit Capsule, 73369 UNIT PO DAILY, CAPSULE 08/15/14 Ubidecarenone (CO Q-10) 200 Mg Capsule, 200 MG PO QDAY, CAPSULE 08/15/14 [place]ner-3 Fatty Acids (FISH OIL) 300 Mg Capsule, 300 MG PO BID, CAPSULE 08/15/14 Allopurinol (ALLOPURINOL) 100 Mg Tablet, 300 MG PO QDAY, TAB 08/15/14 Discontinued Scripts Pregabalin (LYRICA) 150 Mg Capsule, 150 MG PO BID, #60 CAPSULE 4 Refills Prov:JOSE GARCIA [facility], ONC 05/26/17 Hydrocodone Bit/Acetaminophen (NORCO 5-325 TABLET) 1 Each Tablet, 1 EACH PO Q4H for pain, #90 TAB Prov:JOSE GARCIA [facility], ONC 05/10/17 Hydrocodone Bit/Acetaminophen 7.5/300 (HYDROCODON-ACETAMINOPH 7.5-300) 1 Each Tablet, 1 EACH PO Q6H for pain, #60 TAB Prov:JOSE GARCIA [facility], ON[facility] 04/04/17 Levofloxacin 750 Mg Tab (LEVAQUIN 750 MG TAB) 750 Mg Tablet, 750 MG PO DAILY, # 7 TAB Prov:JOSE GARCIA [facility], [facility] 06/27/16 Sucralfate (CARAFATE) 1 Gm Tablet, 1 TAB PO ACHS, #60 TAB 0 Refills Prov:YANET CASTILLO MD 05/03/16 Allergies: Coded Allergies: No Known Drug Allergies (Unverified , 04/11/16) Review of System/Physical Exam Review of Systems All Systems Reviewed/Normal: Yes, Except as Noted Hematologic: Positive for Fatigue, Positive for Weakness Musculoskeletal: Positive for Muscle Pain Neurologic: Numbness of Feet (left lower extremity) Psychiatric: Depression Physical Exam Vital Signs Temperature: 97.2 Pulse: 72 BP Systolic: 106 BP Diastolic: 81 Respiratory Rate: 16 O2 SAT: 90 O2 Delivery: Room Air Height (inches) 67.50 Weight lb: 216 Weight oz: 5.0 Weight Kg (Rafa): 97.291981 Pain: 6 ECOG Score: 1 General: Stable, Well Developed, Well Nourished, Not In Acute Distress HEENT: No Trauma, No Conjunctivitis, No Icterus, No Mucositis, No Oral Thrush Neck: Supple Lungs: Clear to Auscultation Heart: Regular Rate, Regular Rhythm, No Gallops Abdomen: Soft and Nontender, No Hepatosplenomegaly, No Masses Extremities: No Cyanosis, No Clubbing, No Edema Lymphadenopathy: No Cervical Psychiatric: Mood appears normal, Affect appears normal Skin: No Skin Rashes, No Bruising Diagnostic Studies Diagnostic Studies Laboratory Item Value Date Time Immunoglobulin G 299 mg/dL L 05/24/17 09 Immunoglobulin A 23 mg/dL L 05/24/17899 Free Pierre Light Chains, Quant 0.19 mg/dL L 05/24/17899 Free Pierre/Lambda Light Chain Ratio 0.17 L 05/24/17899 Laboratory Tests 05/24/17 09:00 Laboratory Tests 03/30/17 08:24: Peripheral Blood Smear No 05/24/17 09:00: White Blood Count 5.2, Red Blood Count 5.26, Hemoglobin 17.0, Hematocrit 48.4, Mean Corpuscular Volume 92.0, Mean Corpuscular Hemoglobin 32.4, Mean Corpuscular Hemoglobin Concent 35.2, Red Cell Distribution Width 13.3, Platelet Count 172, Mean Platelet Volume 8.5, Neutrophils (%) (Auto) 67.9, Lymphocytes (% ) (Auto) 16.5, Monocytes (%) (Auto) 12.6, Eosinophils (%) (Auto) 2.1, Basophils (%) (Auto) 0.9, Nucleated RBC Relative Count (auto) 0.8, Neutrophils # (Auto) 3.5, Lymphocytes # (Auto) 0.9, Monocytes # (Auto) 0.7, Eosinophils # (Auto) 0.1 , Basophils # (Auto) 0.0, Nucleated RBC Absolute Count (auto) 0.04, Sodium Level 140, Potassium Level 3.9, Chloride Level 102, Carbon Dioxide Level 28, Blood Urea Nitrogen 15, Creatinine 1.20, Glomerular Filtration Rate Calc > 60.0 , Random Glucose 115, Uric Acid 4.6, Calcium Level 9.3, Total Bilirubin 1.7, Aspartate Amino Transf (AST/SGOT) 38, Alanine Aminotransferase (ALT/SGPT) 54, Alkaline Phosphatase 119, Lactate Dehydrogenase 453, Protein Electrophoresis (T ) 6.10, Total Protein 6.5, Albumin 4.0, Albumin % (PEP) 4.04, Otqnf-4-Rgzgghdjj 0.36, Glmbi-9-Kezqrzwsr 0.66, Beta Globulins 0.70, Ojqh-0-Lozocuvzbrfnq 3.2, Gamma Globulins (%) 0.34, Immunoglobulin G 299, Immunoglobulin A 23, Immunoglobulin M 48, TAN & Serum PEP Interpretation See note, Serum Immunofixation Tan done, Free Pierre Light Chains, Quant 0.19, Free Lambda Light Chains, Quant 1.09, Free Pierre/Lambda Light Chain Ratio 0.17 Assessment and Plan Assessment & Plan ASSESSMENT 1. Waldenstrom macroglobulinemia with IgM paraproteinemia with IgM lambda monoclonal protein. Patient currently on treatment with rituximab as he could not tolerate cyclophosphamide. Patient started treatment with ibrutinib with initial response, then progressed after that. He started treatment with CaRD chemotherapy with Kyprolis, rituximab and dexamethasone between May 14, 2015 through August 28, 2015, and the patient received six cycles with response, but he developed Kyprolis-induced cardiomyopathy, so the treatment was stopped. He then received treatment with rituximab, dexamethasone and cyclophosphamide , but he stopped cyclophosphamide because of the side effects. He is maintained with rituximab and dexamethasone with stabilization of his monoclonal protein. He stopped treatment for two months but started to have pain in his left leg from his neuropathy, so the patient resumed treatment with rituximab again in November 2016. He will continue rituximab on monthly intervals and will follow in a month from now with CBC, chem panel, LDH uric acid and myeloma profile. I will increase his Lyrica dose to 200 mg twice daily. In review of the literature patient could take up to 600 mg daily. In addition I refilled his fentanyl patch. Recently patient's [place] was refilled. He recently has followed with Dr. Overton on 04/21/2017 and reports no changes recommended. 2. Neuropathy due to Waldenstrom macroglobulinemia. He is currently on Lyrica , Fentanyl and [place] with stable management 4. Hypertension, on treatment. 5. Gastroesophageal reflux disease, on Protonix. PLAN 1. Rituximab today and continue monthly treatments 2. Patient to return in one month with CBC, chem panel, LDH, uric acid and myeloma profile. 3. Patient is to contact us for any new concerns or complaints I personally spent a total of 30 minutes. Of that 25 minutes was counseling/ coordination of patient's care. See my note above for details. JOSE GARCIA [employer], ONC Jun 02, 2017 10:37
[2017-06-02] MEDS ORDERED: PRE200PT PO ×2 (11:42→11:45)
[2017-06-02] MEDS ORDERED: FENT1PAT40 TD ×2 (11:42→11:45)
[2017-06-02] MEDS: HEPARIN FLSH (PORT) 500 UN/5ML IVP PRN (12:34)
[2017-06-02 12:35] VITALS: BP 129/74
== END 2017-06-07 ==
LOC: ONC 08:04
PROVIDERS: ATTEND Internal Medicine Hematology
DX: Z51.11 Encounter for antineoplastic chemotherapy (principal); C88.0 Waldenstrom macroglobulinemia; G62.9 Polyneuropathy, unspecified; M10.9 Gout, unspecified; I10 Essential (primary) hypertension; F17.220 Nicotine dependence, chewing tobacco, uncomplicated; Z79.899 Other long term (current) drug therapy; R53.1 Weakness; R53.83 Other fatigue; Z79.82 Long term (current) use of aspirin; M79.662 Pain in left lower leg; K21.9 Gastro-esophageal reflux disease without esophagitis
CPT/HCPCS: 36415; 82232; 83615; 83883; 84550; 85025; 86334; 96367; 96375; 96413; 96415; J1100; J1642; J7030; J7040; J7050; J9310; 82040; 82247; 82310; 82374; 82435; 82565; 82947; 84075; 84132; 84155; 84295; 84450; 84460; 84520

== ENCOUNTER 2017-06-07 01:53 | Day surgery (SDC) | payer MEDICARE, OTHER ==
[~2017-06-07] VITALS: Ht 175.3 cm; Wt 99.8 kg
[2017-06-07] VITALS (18 sets, daily range): BP systolic 76–143; BP diastolic 48–87
[~2017-06-07 01:53] MED LIST changes: -ACETAMINOPHEN 325 MG TAB PO PRN; -ALTEPLASE RECOMB 2 MG VIAL IVP PRN; -DEXTROSE 5%(*) 100 ML BAG 100 ML IVPB PRN; -LIDOCAINE/SOD BICARB 8.4% SYR ID PRN; -NS(*) 0.9% 500 ML BAG 500 ML IV PRN; +PRE200PT PO; -RITUXIMAB IV ONE; -WATER STERILE 10 ML VIAL IVP PRN; -[UNRECOGNIZED DRUG - OTHER] IV ONE; -diphenhydrAMINE 25 MG CAP PO PRN
[2017-06-07] MEDS ORDERED: LIDOCAINE/SOD BICARB 8.4% SYR ID ONE (11:00)
[2017-06-07] MEDS ORDERED: NORMOSOL R SOLN(*) 1000 ML BAG 1,000 ML IV PRN (11:00)
[2017-06-07] MEDS ORDERED: MIDAZOLAM 2 MG/2 ML VIAL IVP ONE (11:00)
[2017-06-07] MEDS ORDERED: MIDAZOLAM 1 MG/1 ML 10 ML ONE (11:02)
[2017-06-07] MEDS ORDERED: fentaNYL CITR 250 MCG/5 ML AMP ONE (11:02)
[2017-06-07] MEDS ORDERED: ROCURONIUM BROM 10 MG/ML 10 ML ONE (11:03)
[2017-06-07] MEDS ORDERED: NS(*) 0.9% 100 ML BAG 100 ML ONE (11:23)
[2017-06-07] MEDS ORDERED: METOPROLOL SUCC XL 50 MG TABCR 50 MG TAB.ER.24H PO ONE (11:26)
--- NOTE | 2017-06-07 13:20 | RADIOLOGY IMAGING REPORT ---
FACILITY: [facility] - [place] PATIENT NAME: Bernardo Miller : 1950 MR: [id number] V: [id number] EXAM DATE: ORDERING PHYSICIAN: JOHN SHEIKH TECHNOLOGIST: Location: [facility] [place] Patient: Bernardo Miller : 1950 Visit/Account:[id number] Date of Sevice: 06/07/2017 EXAMINATION: L SPINE W/O CONTRAST INDICATION: Left leg pain COMPARISON: None available TECHNIQUE: Multiplane MR imaging was performed through the lumbar spine without contrast. FINDINGS: Vertebral bodies: Normal Conus position/signal: Normal Marrow signal: Normal Extraspinal structures including psoas muscles/paraspinal soft tissues: Normal L1-2: Normal L2-3: Small disc protrusion, otherwise normal. L3-4: Small disc protrusion, moderate facet arthropathy, ligamentum flavum thickening, prominence of posterior vertebral space fat, right sided synovial cyst within the posterior lateral right aspect of the canal measures 4 mm transverse by 7.5 mm craniocaudad. The constellation of findings result in m ild to moderate thecal sac narrowing. The right synovial cyst partially effaces the right lateral rec ess. Mild right and moderate left foraminal narrowing. L4-5: Small posterior disc protrusion, moderate facet arthropathy, mild left foraminal narrowing, mil d right foraminal narrowing. L5-S1: Small posterior disc protrusion, slight right lateral recess narrowing, mild right foraminal n arrowing, mild left foraminal narrowing. IMPRESSION: 1. Mild to moderate L3-4 thecal sac narrowing secondary to the constellation of findings described ab ove. Small right sided synovial cyst within the posterior lateral right aspect of the canal at the L3-4 di sc space level partially effaces the right lateral recess and contributes to the thecal sac narrowing at L3-4. 2. Multilevel foraminal narrowing most pronounced at the left L3-4 level, see comments above. Report Dictated By: Dragan Leiva MD at 06/07/2017 1:09 PM Report E-Signed By: Dragan Leiva MD at 06/07/2017 1:15 PM [id number]
== END 2017-06-07 16:45 | disposition home or self-care (01) ==
LOC: OR 01:53
PROVIDERS: ATTEND Orthopaedic Surgery
DX: M48.061 Spinal stenosis, lumbar region without neurogenic claudication (principal); M71.38 Other bursal cyst, other site
CPT/HCPCS: 72148; 94667; A9270; J2250; J3010; J7050

== ENCOUNTER 2017-09-15 08:20 | Outpatient (RCR) | payer MEDICARE, OTHER ==
[2017-06-20 11:09] LABS: PLATELET COUNT, AUTOMATED 261 K/uL (150-450)
--- NOTE | 2017-06-20 12:07 | ONC Progress Note - NP.Halsey ---
Patient History Date of Service Jun 20, 2017 Reason For Visit/HPI Patient is seen in the cancer center on a monthly basis for Rituxan infusion for his Waldenstrm's macroglobulinemia. Patient has had chronic pain in his left lower extremity. He recently has followed with [facility] and is scheduled for a steroid injection with hopes for relief of pain in his back and radiating pain down his leg. There is no contraindication that patient could not receive this steroid injection. This information has been relayed verbally to Anali at [facility] followed preceding this letter. Problem List (1) Waldenstrom macroglobulinemia (2) Left leg pain (3) Neuropathic pain Medical History Family History: FH: Alzheimers disease MOTHER FH: COPD (chronic obstructive pulmonary disease) MOTHER FH: brain aneurysm MOTHER FH: diabetes mellitus Maternal Grandmother FH: leukemia FATHER Psychosocial History Smoking History: No (States he chews 1 can every week) Smoking Status: Former Smoker Exposure to Second Hand Smoke?: No Medications and Allergies Active Scripts Pregabalin (LYRICA) 200 Mg Cap, 200 MG PO BID, #60 CAP 2 Refills Prov:JOSE GARCIA [facility]-, ONC 06/02/17 Fentanyl (Fentanyl) 1 Each Patch.td72, 50 MCG TD Q72H, #10 MCG Prov:JOSE GARCIA, ONC 06/02/17 Zolpidem Tartrate (ZOLPIDEM TARTRATE) 10 Mg Tablet, 1 TAB PO QHS, #30 TAB 4 Refills Prov:JOSE GARCIAPRENU, ONC 03/30/17 Tramadol Hcl (TRAMADOL HCL) 50 Mg Tablet, 50-100 MG PO PRN, #60 TAB 1 Refill Prov:JOSE GARCIA [facility], ONC 11/03/16 Duloxetine Hcl (CYMBALTA) 60 Mg Capsule.dr, 60 MG PO QDAY, #30 CAP 9 Refills Prov:JOSE GARCIA, ONC 08/15/16 Temazepam (TEMAZEPAM) 15 Mg Capsule, 15 MG PO QHS, #30 CAPSULE 2 Refills Prov:JOSE GARCIA [facility], ONC 05/13/16 Lorazepam (LORAZEPAM) 1 Mg Tab, 1 TAB PO Q4-6H Y for ANXIETY, #30 TAB 1 Refill Prov:JOSE GARCIA Meri [facility], ONC 02/08/16 Reported Medications Tamsulosin Hcl (FLOMAX) 0.4 Mg Cap.er.24h, 0.4 MG PO DAILY, CAP 05/06/16 Pantoprazole Sodium (PANTOPRAZOLE SODIUM) 40 Mg Tablet.dr, 40 MG PO QDAY, TAB.SR 05/06/16 [Magnesium] No Conflict Check, 500 MG PO QDAY 04/11/16 Atorvastatin (LIPITOR) 80 Mg Tab, 1 TAB PO QDAY, TAB 04/11/16 Metoprolol Succinate (METOPROLOL SUCCINATE) 50 Mg Tab.er.24h, 1 TAB PO QAM, TAB 04/11/16 Aspirin (ASPIRIN) 81 Mg Tab.chew, 81 MG PO QDAY, TAB.CHEW 08/31/15 Cholecalciferol (Vitamin D3) (D3-50) 50,000 Unit Capsule, 79516 UNIT PO DAILY, CAPSULE 08/15/14 Ubidecarenone (CO Q-10) 200 Mg Capsule, 200 MG PO QDAY, CAPSULE 08/15/14 [place]-3 Fatty Acids (FISH OIL) 300 Mg Capsule, 300 MG PO BID, CAPSULE 08/15/14 Allopurinol (ALLOPURINOL) 100 Mg Tablet, 300 MG PO QDAY, TAB 08/15/14 Allergies: Coded Allergies: No Known Drug Allergies (Unverified , 04/11/16) Review of System/Physical Exam Physical Exam Vital Signs Temperature: 97.9 Pulse: 56 BP Systolic: 129 BP Diastolic: 74 Respiratory Rate: 16 O2 SAT: 91 O2 Delivery: Room Air Height (inches) 69.00 Weight lb: 220 Weight oz: 5.0 Weight Kg (Rafa): 97.247645 Pain: 6 Diagnostic Studies Diagnostic Studies Laboratory Laboratory Tests 06/20/17 11:00 Laboratory Tests 06/20/17 11:00: White Blood Count 4.8, Red Blood Count 4.88, Hemoglobin 15.5, Hematocrit 44.4, Mean Corpuscular Volume 90.9, Mean Corpuscular Hemoglobin 31.7, Mean Corpuscular Hemoglobin Concent 34.9, Red Cell Distribution Width 12.8, Platelet Count 261, Mean Platelet Volume 8.0, Neutrophils (%) (Auto) 69.4, Lymphocytes (% ) (Auto) 17.5, Monocytes (%) (Auto) 9.3, Eosinophils (%) (Auto) 2.7, Basophils ( %) (Auto) 1.1, Nucleated RBC Relative Count (auto) 0.0, Neutrophils # (Auto) 3.3 , Lymphocytes # (Auto) 0.8, Monocytes # (Auto) 0.5, Eosinophils # (Auto) 0.1, Basophils # (Auto) 0.1, Nucleated RBC Absolute Count (auto) 0.00, Sodium Level 141, Potassium Level 3.9, Chloride Level 102, Carbon Dioxide Level 28, Blood Urea Nitrogen 16, Creatinine 1.20, Glomerular Filtration Rate Calc > 60.0, Random Glucose 87, Uric Acid 3.9, Calcium Level 9.3, Total Bilirubin 1.7, Aspartate Amino Transf (AST/SGOT) 29, Alanine Aminotransferase (ALT/SGPT) 42, Alkaline Phosphatase 115, Lactate Dehydrogenase 515, Total Protein 6.6, Albumin 4.0 Assessment and Plan Assessment & Plan Patient previously has consulted with [facility]. Regarding steroid injection with hopes for relief of pain in the left lower extremity and hip. There is no contraindication regarding this injection. Please proceed with the procedure on Monday as scheduled. If you have further questions please contact me at [phone]. Thank you Copies to: KEARA MADRID MD,JOSE Jerez [facility], ONC Jun 20, 2017 12:07
[2017-06-30 08:19] VITALS: BP 126/80
[2017-06-30] MEDS: NS(*) 0.9% 500 ML BAG 500 ML IV PRN (09:00)
[2017-06-30] MEDS: DEXAMETHASONE SOD 20MG/5 ML VL IVP PRN (09:31)
[2017-06-30] MEDS: HEPARIN FLSH (PORT) 500 UN/5ML IVP PRN (12:57)
--- NOTE | 2017-07-02 08:27 | [facility] ONCOLOGY NOTE ---
EVENT DATE: June 30, 2017 DIAGNOSES 1. IgM paraproteinemia, highly suspicious for Waldenstrom macroglobulinemia. 2. 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 3. Pain due to neuropathy. CHIEF COMPLAINT The patient is here today for followup of his Waldenstrom macroglobulinemia, on treatment with rituximab. ONCOLOGY HISTORY The patient is a 66-year-old male who was followed in the past for erythrocytosis, treated with phlebotomies and his counts normalized. He presented recently with worsening neuropathy of the right lower extremity. He has been treated for gout with allopurinol and for the neuropathy with gabapentin. He saw a neurologist who diagnosed him with neuropathy and during his evaluation for neuropathy the patient was found to have 0.6 g/dL IgM lambda light chains specificity of monoclonal protein. He was also found to have serum IgM level of 751. Patient has been evaluated by Dr. Cornejo who requested a bone marrow test which was done on August 20, 2014 and reports of the bone marrow was hypercellular for age, 50% to 75% with trilineage hematopoiesis with maturation and mild dyspneic cardiopoiesis. There was no evidence of bone marrow involvement by lymphoplasmacytic lymphoma. His peripheral blood did reveal the presence of rare circulating plasmacytoid and large granular lymphocytes. No flow cytometry, FISH, cytogenetic, or molecular studies done from the bone marrow. CT chest, abdomen, and pelvis done on August 18, 2014 showed normal sized spleen, normal appearing lymph nodes in the chest, abdomen, and pelvis with right inguinal hernia containing omentum with small hypodense lesion within the left lobe of the liver medial segment most likely represents a focal fatty infiltration. On August 15, 2014 patient has beta 2-microglobulin which was normal at 1.7. Serum viscosity was normal at 1.29. IgG was normal at 843. IgA was normal at 123. IgM was high at 551. Hepatitis surface antigen was negative. Hepatitis B core IgM was also negative. Hepatitis A antibody IgM was negative. Hepatitis C antibody by RICKY was negative. Hepatitis B core was negative. Uric acid was normal at 4.3. Cold agglutinin was also negative. Skeletal bone survey done on August 25, 2014 came back inconclusive. A 24-hour urine showed normal kappa free light chain at 1.29 and lambda free light chain at 1.92. Beta-2 microglobulin was normal at 1.9. IgG was normal at 826, IgA was normal at 130, IgM was high at 490. Uric acid was normal at 4.4. The patient has been evaluated at the [facility] under the care of Dr. Nick Mejia. The patient had sural nerve biopsy which came back negative. He has also a good bone marrow aspiration biopsy, which was also negative, but molecular studies showed Mutation detected at C.794T more than C of NYD88 mutation, suggestive of Waldenstrom macroglobulinemia. The patient started treatment with ibrutinib 420 mg daily in November 2014, which was stopped in July 2015 because of progression of his disease. The patient started treatment with CARD chemotherapy with carfilzomib, rituximab and dexamethasone on May 14, 2015. The patient is here today for his cycle #6 of CARD chemotherapy for his Waldenstrom macroglobulinemia. His general condition is improving gradually. His neuropathic pain resolved completely, but on decreasing the dose of fentanyl patch from 25 to 12 mcg q.72h., his pain restarted becoming more annoying to him, but currently with 25 mcg, the patient is free of pain and free of any complaints currently. 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 The patient started treatment with cyclophosphamide with rituximab and dexamethasone on September 25, 2015. The patient quit taking cyclophosphamide because of the side-effect and he is maintained on rituximab and dexamethasone with stabilization of his IgM level and monoclonal protein. HISTORY OF PRESENT ILLNESS Patient is here today for followup of his Waldenstrom macroglobulinemia on treatment with rituximab. He is doing fine currently. His pain in the left leg is much better after having injection in his back because of a pinched nerve because of arthritis. Other than that, patient is really doing very well. PAST MEDICAL HISTORY 1. Hypertension. 2. Hypertriglyceridemia. 3. Gout. 4. Gouty arthritis. 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 PAST SURGICAL HISTORY 1. Cholecystectomy. 2. Appendectomy. 3. Bilateral hip arthroplasties. 4. Knee arthroscopy x2. 5. Right foot surgery. FAMILY HISTORY Father had chronic leukemia, most probably CLL. SOCIAL HISTORY Patient is . He has 2 daughters. 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 He drinks alcohol socially. He chews tobacco, but denies smoking tobacco and denies any abuse of illicit drugs. CURRENT MEDICATIONS 1. Amitriptyline 50 mg at bedtime. 2. Fentanyl patch 25 mcg q.72h. 3. Ambien 12.5 mg at bedtime p.r.n. 4. Lyrica 50 mg two tablets at bedtime. 5. Ativan 1 mg q.4-6h. p.r.n. for anxiety. 6. Lipitor 80 mg at bedtime. 7. Vitamin D3 at 50,000 units orally daily. 8. CoQ10 at 200 mg daily. ALLERGIES No known drug allergies. REVIEW OF SYSTEMS CONSTITUTIONAL: No appetite or weight change. No fever, chills or sweating. No recent infection. HEENT: Ears: No tinnitus or hearing problem. Nose: No nasal discharge or epistaxis. Throat: No sore throat or mouth ulcers. Eyes: No diplopia or visual changes. RESPIRATORY: No shortness of breath. No cough, expectoration or hemoptysis. CARDIOVASCULAR: No chest pain, orthopnea, or paroxysmal nocturnal dyspnea (PND) . No edema. No palpitations. GASTROINTESTINAL: No nausea or vomiting. No diarrhea or constipation. No change in bowel movements. No heartburn or swallowing difficulties. No abdominal pain. No jaundice. No hematemesis, melena or rectal bleeding. GENITOURINARY: No hematuria or dysuria. MUSCULOSKELETAL: Patient has pain in the left leg, but it is much better after local injection of steroid in his back. NEUROLOGICAL: No tingling or numbness in the hands or feet. No headaches or convulsions. HEMATOLOGIC/LYMPHATIC: No bleeding or easy bruising. No weakness or fatigued. No enlarged lymph nodes. SKIN: No skin rash or lumps. PSYCHIATRIC: No anxiety or depression. PHYSICAL EXAMINATION GENERAL: Looks stable. Well-developed, well-nourished, and in no acute distress. VITAL SIGNS: Blood pressure 126/80, pulse 68 per minute, respirations 16 per minute, temperature 97.3, pulse oximetry 90% on room air. HEENT: Head: Atraumatic. No sinus tenderness to palpation. Eyes: No icterus or conjunctivitis. Mouth and throat: No oral thrush or mucositis. NECK: Supple. No cervical or supraclavicular lymphadenopathy. LUNGS: Clear to auscultation and percussion bilaterally. HEART: Regular rate and rhythm. No gallops, murmurs, clicks or rubs. ABDOMEN: Soft and lax. No tenderness. No hepatosplenomegaly. No masses. EXTREMITIES: No cyanosis, clubbing or edema. LYMPHATICS: No peripheral lymphadenopathy. NEUROLOGICAL: Conscious, alert and oriented times three. No focal motor or sensory deficits. PSYCHIATRIC: Mood and affect appear normal. SKIN: No skin rash, bruise or purpuric eruption. DIAGNOSTIC DATA CBC showed white count 4800, hemoglobin 15.5, hematocrit 44.4, platelets 261, 000. Chem panel totally normal except total bilirubin 1.7, other parameters are normal. Beta 2 microglobulin is normal at 2.3. Serum protein immunoelectrophoresis showed a faint band at the IgM lambda, which is stable. IgG level is 307, IgA is 20 and IgM is 42, within the normal range. ASSESSMENT 1. Waldenstrom macroglobulinemia with IgM paraproteinemia with IgM lambda monoclonal protein. Patient currently on treatment with rituximab, as he could not tolerate cyclophosphamide with that. Patient started treatment with ibrutinib with initial response, then progressed after that. He started treatment with CaRD chemotherapy with Kyprolis, rituximab and dexamethasone between May 14, 2015 through August 28, 2015, and the patient received six cycles with response, but he developed Kyprolis-induced cardiomyopathy, so the treatment was stopped after that. He received after that treatment with rituximab, dexamethasone and cyclophosphamide, but he stopped cyclophosphamide because of the side effects. Patient is maintained with rituximab and dexamethasone with stabilization of his monoclonal protein. His treatment with rituximab was stopped for two months, but he started to have pain in the left leg after that thought, thought to be due to his neuropathy. Patient resumed treatment with rituximab November 2016. He has seen an orthopedic surgeon, and the patient was found to have arthritis with pinched nerve in the back, and the patient received local steroid injection there with much improvement of the pain in his left leg. I am planning to proceed with his rituximab today. I will see him in one month, and in the meantime we will monitor the pain of the left leg to see if the patient will get more relief from the local injection of the back or not. 2. Neuropathy due to Waldenstrom macroglobulinemia, also due to pinched nerve in the back. Patient received local steroid injection in the back with much improvement of the pain of the left leg. Will continue to monitor. 3. Gout with gouty arthritis, on allopurinol. 4. Hypertension, on treatment. 5. Gastroesophageal reflux disease, on Protonix. PLAN 1. Rituximab therapy today. 2. Patient to return in one month with CBC, chem panel, LDH, uric acid and myeloma profile. 3. Patient is to contact us for any new concerns or complaints. MTDD
[2017-07-07 14:59] VITALS: BP 130/66
--- NOTE | 2017-07-10 19:16 | ONCOLOGY FOLLOW UP NOTE ---
EVENT DATE: July 07, 2017 DIAGNOSES 1. IgM paraproteinemia, highly suspicious for Waldenstrom macroglobulinemia. 2. 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 3. Pain due to neuropathy. CHIEF COMPLAINT The patient is here today for followup of his Waldenstrom macroglobulinemia, on treatment with rituximab, with severe pain in the head and neck. ONCOLOGY HISTORY The patient is a 66-year-old male who was followed in the past for erythrocytosis, treated with phlebotomies and his counts normalized. He presented recently with worsening neuropathy of the right lower extremity. He has been treated for gout with allopurinol and for the neuropathy with gabapentin. He saw a neurologist who diagnosed him with neuropathy and during his evaluation for neuropathy the patient was found to have 0.6 g/dL IgM lambda light chains specificity of monoclonal protein. He was also found to have serum IgM level of 751. Patient has been evaluated by Dr. Cornejo who requested a bone marrow test which was done on August 20, 2014 and reports of the bone marrow was hypercellular for age, 50% to 75% with trilineage hematopoiesis with maturation and mild dyspneic cardiopoiesis. There was no evidence of bone marrow involvement by lymphoplasmacytic lymphoma. His peripheral blood did reveal the presence of rare circulating plasmacytoid and large granular lymphocytes. No flow cytometry, FISH, cytogenetic, or molecular studies done from the bone marrow. CT chest, abdomen, and pelvis done on August 18, 2014 showed normal sized spleen, normal appearing lymph nodes in the chest, abdomen, and pelvis with right inguinal hernia containing omentum with small hypodense lesion within the left lobe of the liver medial segment most likely represents a focal fatty infiltration. On August 15, 2014 patient has beta 2-microglobulin which was normal at 1.7. Serum viscosity was normal at 1.29. IgG was normal at 843. IgA was normal at 123. IgM was high at 551. Hepatitis surface antigen was negative. Hepatitis B core IgM was also negative. Hepatitis A antibody IgM was negative. Hepatitis C antibody by RICKY was negative. Hepatitis B core was negative. Uric acid was normal at 4.3. Cold agglutinin was also negative. Skeletal bone survey done on August 25, 2014 came back inconclusive. A 24-hour urine showed normal kappa free light chain at 1.29 and lambda free light chain at 1.92. Beta-2 microglobulin was normal at 1.9. IgG was normal at 826, IgA was normal at 130, IgM was high at 490. Uric acid was normal at 4.4. The patient has been evaluated at the [facility] [place], [place] under the care of Dr. Nick Mejia. The patient had sural nerve biopsy which came back negative. He has also a good bone marrow aspiration biopsy, which was also negative, but molecular studies showed Mutation detected at C.794T more than C of NYD88 mutation, suggestive of Waldenstrom macroglobulinemia. The patient started treatment with ibrutinib 420 mg daily in November 2014, which was stopped in July 2015 because of progression of his disease. The patient started treatment with CARD chemotherapy with carfilzomib, rituximab and dexamethasone on May 14, 2015. The patient is here today for his cycle #6 of CARD chemotherapy for his Waldenstrom macroglobulinemia. His general condition is improving gradually. His neuropathic pain resolved completely, but on decreasing the dose of fentanyl patch from 25 to 12 mcg q.72h., his pain restarted becoming more annoying to him, but currently with 25 mcg, the patient is free of pain and free of any complaints currently. 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 The patient started treatment with cyclophosphamide with rituximab and dexamethasone on September 25, 2015. The patient quit taking cyclophosphamide because of the side-effect and he is maintained on rituximab and dexamethasone with stabilization of his IgM level and monoclonal protein. HISTORY OF PRESENT ILLNESS Patient is here today because of worsening pain in the left side of the head and the neck, which is getting worse for the last three days. Patient has been seen recently in the beginning of June with very good control of his back pain. But this is a new pain that is getting really very, very bad currently and he cannot even sleep at night. He also claimed he had some bleeding per rectum multiple times, but only for one day. PAST MEDICAL HISTORY 1. Hypertension. 2. Hypertriglyceridemia. 3. Gout. 4. Gouty arthritis. 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 PAST SURGICAL HISTORY 1. Cholecystectomy. 2. Appendectomy. 3. Bilateral hip arthroplasties. 4. Knee arthroscopy x2. 5. Right foot surgery. FAMILY HISTORY Father had chronic leukemia, most probably CLL. SOCIAL HISTORY Patient is . He has 2 daughters. 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 He drinks alcohol socially. He chews tobacco, but denies smoking tobacco and denies any abuse of illicit drugs. CURRENT MEDICATIONS 1. Amitriptyline 50 mg at bedtime. 2. Fentanyl patch 25 mcg q.72h. 3. Ambien 12.5 mg at bedtime p.r.n. 4. Lyrica 50 mg two tablets at bedtime. 5. Ativan 1 mg q.4-6h. p.r.n. for anxiety. 6. Lipitor 80 mg at bedtime. 7. Vitamin D3 at 50,000 units orally daily. 8. CoQ10 at 200 mg daily. ALLERGIES No known drug allergies. REVIEW OF SYSTEMS CONSTITUTIONAL: No appetite or weight change. No fever, chills or sweating. No recent infection. HEENT: Ears: No tinnitus or hearing problem. Nose: No nasal discharge or epistaxis. Throat: No sore throat or mouth ulcers. Eyes: No diplopia or visual changes. RESPIRATORY: No shortness of breath. No cough, expectoration or hemoptysis. CARDIOVASCULAR: No chest pain, orthopnea, or paroxysmal nocturnal dyspnea (PND) . No edema. No palpitations. GASTROINTESTINAL: No nausea or vomiting. He has bloody stools multiple times, only in one day, but resolved. No constipation. No change in bowel movements. No heartburn or swallowing difficulties. No abdominal pain. No jaundice. No hematemesis, melena or rectal bleeding. GENITOURINARY: No hematuria or dysuria. MUSCULOSKELETAL: He has pain in the left side of the head and also neck pain which is getting worse for the last three days, preventing patient from sleep. Patient has pain in the left leg, but it is much better after local injection of steroid in his back. NEUROLOGICAL: No tingling or numbness in the hands or feet. No headaches or convulsions. HEMATOLOGIC/LYMPHATIC: No bleeding or easy bruising. No weakness or fatigued. No enlarged lymph nodes. SKIN: No skin rash or lumps. PSYCHIATRIC: No anxiety or depression. PHYSICAL EXAMINATION GENERAL: Looks stable. Well-developed, well-nourished, and in no acute distress. VITAL SIGNS: Blood pressure 130/66, pulse 62 per minute, respirations 16 per minute, temperature 97.6, pulse oximetry 94% on room air. HEENT: Head: Atraumatic. No sinus tenderness to palpation. Eyes: No icterus or conjunctivitis. Mouth and throat: No oral thrush or mucositis. NECK: Supple. No cervical or supraclavicular lymphadenopathy. LUNGS: Clear to auscultation and percussion bilaterally. HEART: Regular rate and rhythm. No gallops, murmurs, clicks or rubs. ABDOMEN: Soft and lax. No tenderness. No hepatosplenomegaly. No masses. EXTREMITIES: No cyanosis, clubbing or edema. LYMPHATICS: No peripheral lymphadenopathy. NEUROLOGICAL: Conscious, alert and oriented times three. No focal motor or sensory deficits. PSYCHIATRIC: Mood and affect appear normal. SKIN: No skin rash, bruise or purpuric eruption. ASSESSMENT 1. Severe pain in the left side of the head and the neck area. I am planning to get an MRI of the brain and MRI of the cervical spine for further evaluation. For control of pain, patient does not respond well to [place], and for this reason I am planning to continue fentanyl patch 50 mcg q.72 hours, and I am planning to put him on Dilaudid 2 mg q.4 hourly p.r.n. for the pain until we get the rests of the MRIs. I explained that to patient and his , they are in agreeable with the plan of management. 2. Waldenstrom macroglobulinemia with IgM paraproteinemia with IgM lambda monoclonal protein. Patient currently on treatment with rituximab, after discontinuing cyclophosphamide because the patient could not tolerate it. Patient initially started treatment for his Waldenstrom macroglobulinemia with ibrutinib with initial response, then progressed after that. He started treatment with CaRD chemotherapy with Kyprolis, rituximab and dexamethasone between May 14, 2015 through August 28, 2015, and the patient received six cycles with response, but he developed Kyprolis-induced cardiomyopathy, so the treatment was stopped after that. He received after that treatment with rituximab, dexamethasone and cyclophosphamide, but he stopped cyclophosphamide because of the side effects. Patient has maintained after that on rituximab and dexamethasone with stabilization of his monoclonal protein. His treatment with rituximab was stopped for two months, but he started to have pain in the left leg after that, thought to be due to his neuropathy. Patient resumed treatment with rituximab November 2016. He has been seen by orthopedic surgeon, and the patient was found to have arthritis with pinched nerve, responding really very good to local steroid injection. He is currently having pain in the left head and left neck, under evaluation. We are planning to continue followup. 3. Neuropathy due to Waldenstrom macroglobulinemia. Continue pain medication. 4. Gout with gouty arthritis on allopurinol. 5. Hypertension on treatment. 6. Gastroesophageal reflux disease on Protonix. PLAN 1. MRI of the brain with and without contrast and MRI cervical spine. 2. Dilaudid 2 mg p.o. q.4 hourly p.r.n. for pain. 3. Fentanyl patch 50 mcg q.72 hours. 4. Patient to keep his scheduled appointment prior to the next dose of rituximab. 5. Patient is to contact us for any new concerns or complaints. MTDD
[2017-07-11] MEDS: HEPARIN FLSH (PORT) 500 UN/5ML IVP PRN (08:40)
[2017-08-07 09:02] VITALS: BP 112/66
[2017-08-07 09:02] LABS: PLATELET COUNT, AUTOMATED 178 K/uL (150-450)
[2017-08-18 08:29] VITALS: BP 103/73
[2017-08-18] MEDS: NS(*) 0.9% 500 ML BAG 500 ML IV PRN (09:00)
[2017-08-18] MEDS: DEXAMETHASONE SOD 20MG/5 ML VL IVP PRN (09:06)
[2017-08-18 12:40] VITALS: BP 116/85
[2017-08-18] MEDS: HEPARIN FLSH (PORT) 500 UN/5ML IVP PRN (12:45)
--- NOTE | 2017-08-19 17:58 | ONCOLOGY FOLLOW UP NOTE ---
EVENT DATE: August 18, 2017 DIAGNOSES 1. IgM paraproteinemia, highly suspicious for Waldenstrom macroglobulinemia. 2. 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 3. Pain due to neuropathy. CHIEF COMPLAINT The patient is here today for followup of his Waldenstrom macroglobulinemia, on treatment with rituximab. ONCOLOGY HISTORY The patient is a 66-year-old male who was followed in the past for erythrocytosis, treated with phlebotomies and his counts normalized. He presented recently with worsening neuropathy of the right lower extremity. He has been treated for gout with allopurinol and for the neuropathy with gabapentin. He saw a neurologist who diagnosed him with neuropathy and during his evaluation for neuropathy the patient was found to have 0.6 g/dL IgM lambda light chains specificity of monoclonal protein. He was also found to have serum IgM level of 751. Patient has been evaluated by Dr. Cornejo who requested a bone marrow test which was done on August 20, 2014 and reports of the bone marrow was hypercellular for age, 50% to 75% with trilineage hematopoiesis with maturation and mild dyspneic cardiopoiesis. There was no evidence of bone marrow involvement by lymphoplasmacytic lymphoma. His peripheral blood did reveal the presence of rare circulating plasmacytoid and large granular lymphocytes. No flow cytometry, FISH, cytogenetic, or molecular studies done from the bone marrow. CT chest, abdomen, and pelvis done on August 18, 2014 showed normal sized spleen, normal appearing lymph nodes in the chest, abdomen, and pelvis with right inguinal hernia containing omentum with small hypodense lesion within the left lobe of the liver medial segment most likely represents a focal fatty infiltration. On August 15, 2014 patient has beta 2-microglobulin which was normal at 1.7. Serum viscosity was normal at 1.29. IgG was normal at 843. IgA was normal at 123. IgM was high at 551. Hepatitis surface antigen was negative. Hepatitis B core IgM was also negative. Hepatitis A antibody IgM was negative. Hepatitis C antibody by RICKY was negative. Hepatitis B core was negative. Uric acid was normal at 4.3. Cold agglutinin was also negative. Skeletal bone survey done on August 25, 2014 came back inconclusive. A 24-hour urine showed normal kappa free light chain at 1.29 and lambda free light chain at 1.92. Beta-2 microglobulin was normal at 1.9. IgG was normal at 826, IgA was normal at 130, IgM was high at 490. Uric acid was normal at 4.4. The patient has been evaluated at the [facility] ([place], [place]) under the care of Dr. Nick Mejia. The patient had sural nerve biopsy which came back negative. He has also a good bone marrow aspiration biopsy, which was also negative, but molecular studies showed Mutation detected at C.794T more than C of NYD88 mutation, suggestive of Waldenstrom macroglobulinemia. The patient started treatment with ibrutinib 420 mg daily in November 2014, which was stopped in July 2015 because of progression of his disease. The patient started treatment with CARD chemotherapy with carfilzomib, rituximab and dexamethasone on May 14, 2015. The patient is here today for his cycle #6 of CARD chemotherapy for his Waldenstrom macroglobulinemia. His general condition is improving gradually. His neuropathic pain resolved completely, but on decreasing the dose of fentanyl patch from 25 to 12 mcg q.72h., his pain restarted becoming more annoying to him, but currently with 25 mcg, the patient is free of pain and free of any complaints currently. 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 The patient started treatment with cyclophosphamide with rituximab and dexamethasone on September 25, 2015. The patient quit taking cyclophosphamide because of the side-effect and he is maintained on rituximab and dexamethasone with stabilization of his IgM level and monoclonal protein. HISTORY OF PRESENT ILLNESS Patient is here today for followup of his Waldenstrom macroglobulinemia on treatment with rituximab. He had shingles lately on the neck area and scalp, treated with Valtrex, and he is currently on prophylactic Valtrex 1 g daily. His pain in the head is much better after treatment of shingles. He is complaining of some sweating. He has pain in the left leg and feet which is better after local injection. Patient really is feeing much better today. PAST MEDICAL HISTORY 1. Hypertension. 2. Hypertriglyceridemia. 3. Gout. 4. Gouty arthritis. 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 PAST SURGICAL HISTORY 1. Cholecystectomy. 2. Appendectomy. 3. Bilateral hip arthroplasties. 4. Knee arthroscopy x2. 5. Right foot surgery. FAMILY HISTORY Father had chronic leukemia, most probably CLL. SOCIAL HISTORY Patient is . He has 2 daughters. 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 He drinks alcohol socially. He chews tobacco, but denies smoking tobacco and denies any abuse of illicit drugs. CURRENT MEDICATIONS 1. Amitriptyline 50 mg at bedtime. 2. Fentanyl patch 25 mcg q.72h. 3. Ambien 12.5 mg at bedtime p.r.n. 4. Lyrica 50 mg two tablets at bedtime. 5. Ativan 1 mg q.4-6h. p.r.n. for anxiety. 6. Lipitor 80 mg at bedtime. 7. Vitamin D3 at 50,000 units orally daily. 8. CoQ10 at 200 mg daily. ALLERGIES No known drug allergies. REVIEW OF SYSTEMS CONSTITUTIONAL: No appetite or weight change. No fever, chills. He has sweating. No recent infection. HEENT: Ears: No tinnitus or hearing problem. Nose: No nasal discharge or epistaxis. Throat: No sore throat or mouth ulcers. Eyes: No diplopia or visual changes. RESPIRATORY: No shortness of breath. No cough, expectoration or hemoptysis. CARDIOVASCULAR: No chest pain, orthopnea, or paroxysmal nocturnal dyspnea (PND) . No edema. No palpitations. GASTROINTESTINAL: No nausea or vomiting. He has bloody stools multiple times, only in one day, but resolved. No constipation. No change in bowel movements. No heartburn or swallowing difficulties. No abdominal pain. No jaundice. No hematemesis, melena or rectal bleeding. GENITOURINARY: No hematuria or dysuria. MUSCULOSKELETAL: He has pain in the left leg and foot which is better after local injection. NEUROLOGICAL: No tingling or numbness in the hands or feet. No headaches or convulsions. HEMATOLOGIC/LYMPHATIC: No bleeding or easy bruising. No weakness or fatigued. No enlarged lymph nodes. SKIN: No skin rash or lumps. PSYCHIATRIC: No anxiety or depression. PHYSICAL EXAMINATION GENERAL: Looks stable. Well-developed, well-nourished, and in no acute distress. VITAL SIGNS: Blood pressure 103/73, pulse 75 per minute, respirations 16 per minute, temperature 96.8, pulse ox 98% on room air. HEENT: Head: Atraumatic. No sinus tenderness to palpation. Eyes: No icterus or conjunctivitis. Mouth and throat: No oral thrush or mucositis. NECK: Supple. No cervical or supraclavicular lymphadenopathy. LUNGS: Clear to auscultation and percussion bilaterally. HEART: Regular rate and rhythm. No gallops, murmurs, clicks or rubs. ABDOMEN: Soft and lax. No tenderness. No hepatosplenomegaly. No masses. EXTREMITIES: No cyanosis, clubbing or edema. LYMPHATICS: No peripheral lymphadenopathy. NEUROLOGICAL: Conscious, alert and oriented times three. No focal motor or sensory deficits. PSYCHIATRIC: Mood and affect appear normal. SKIN: No skin rash, bruise or purpuric eruption. DIAGNOSTIC DATA CBC showed white count 3.8, hemoglobin 15.9, hematocrit 44.8, platelets 178, 000. Chem panel totally normal except blood sugar 129. Serum protein electrophoresis did reveal a faint band in the IgM lambda suggestive of specific immune response or early monoclonal protein. IgG level was low at 315 , IgA level is low at 21, while IgM level is normal at 43. ASSESSMENT 1. Waldenstrom macroglobulinemia with IgM paraproteinemia with IgM lambda monoclonal protein. Patient currently on treatment with rituximab every month. He is doing very well so far. His monoclonal protein showed a faint band in the IgM lambda. His IgM level is normal at 43. Patient would like to have the rituximab to be done every two months and I am planning to do that. He initially started treatment for his Waldenstrom macroglobulinemia with ibrutinib with initial response, but he progressed after that and he started treatment with CaRD chemotherapy with Kyprolis, rituximab and dexamethasone between May 14, 2015 through August 28, 2015, and the patient received six cycles with response, but he developed Kyprolis-induced cardiomyopathy, so the treatment was stopped after that. He received after that treatment with rituximab, dexamethasone and cyclophosphamide, but he stopped cyclophosphamide because of the side effects. Patient has maintained after that on rituximab and dexamethasone with stabilization of his monoclonal protein, which is currently just a faint band in the IgM lambda. I am planning to continue treatment with rituximab every two months rather than every month. He resumed his treatment with rituximab in November 2016 after he stopped it for some time. He is doing fine currently. I am planning to see him in two months with CBC, chem panel, LDH, uric acid and myeloma profile. 2. History of shingles of the head and neck area, status post treatment with Valtrex. He is currently on prophylactic Valtrex 1 g daily and I will continue the same given that the patient will develop immunosuppression from his disease and treatment with rituximab. 3. Neuropathy with Waldenstrom macroglobulinemia. This is getting better. I am planning to taper his pain medication gradually. He is currently on 50 mg fentanyl and Lyrica. We will continue Lyrica, but we will try to taper the fentanyl gradually. I am planning to decrease the dose to 37, then to 25, then to 12, then we will take it off after that if it is possible. Patient is agreeable with that. 4. Gout with gouty arthritis, on allopurinol. 5. Hypertension on treatment. 6. Gastroesophageal reflux disease on Protonix. PLAN 1. Rituximab. 2. Patient to return in two months with CBC, chem panel, LDH, uric acid, myeloma profile. 3. Fentanyl 50 mcg, taper gradually to 37, then to 25, then to 12, then we will take it off. 4. Continue Lyrica treatment. 5. Patient is to contact us for any new concerns or complaints. MTDD
[~2017-09-15] VITALS: Ht 171.4 cm; Wt 99.6 kg
[~2017-09-15 08:20] MED LIST changes: +ACETAMINOPHEN 325 MG TAB PO PRN; +ALTEPLASE RECOMB 2 MG VIAL IVP PRN; +DEXTROSE 5%(*) 100 ML BAG 100 ML IVPB PRN; +LIDOCAINE/SOD BICARB 8.4% SYR ID PRN; +NS(*) 0.9% 100 ML BAG 100 ML IVPB PRN; +RITUXIMAB IV ONE; +VALA100062 PO; +WATER STERILE 10 ML VIAL IVP PRN; +[UNRECOGNIZED DRUG - OTHER] IV ONE; +diphenhydrAMINE 25 MG CAP PO PRN
[2017-09-15] MEDS: HEPARIN FLSH (PORT) 500 UN/5ML IVP PRN (08:30)
[2017-09-15 08:32] VITALS: BP 126/68
== END 2017-09-18 ==
LOC: SPU 08:20
PROVIDERS: ATTEND Internal Medicine Hematology
DX: Z51.11 Encounter for antineoplastic chemotherapy (principal); C88.0 Waldenstrom macroglobulinemia; M79.605 Pain in left leg; Z87.891 Personal history of nicotine dependence; Z79.899 Other long term (current) drug therapy
CPT/HCPCS: 36415; 82232; 83615; 83883; 84160; 84165; 84550; 85025; 86334; 96375; 96413; 96415; 96523; J1100; J1642; J7030; J7040; J9310; 70553; 82040; 82247; 82310; 82374; 82435; 82565; 82784; 82947; 84075; 84132; 84155; 84295; 84450; 84460; 84520

== ENCOUNTER → 2017-09-26 | Outpatient (CLI) | payer MEDICARE, OTHER ==
[~2017-09-26] MED LIST changes: -ACETAMINOPHEN 325 MG TAB PO PRN; -ALTEPLASE RECOMB 2 MG VIAL IVP PRN; -DEXTROSE 5%(*) 100 ML BAG 100 ML IVPB PRN; +IOPAMIDOL 76% 75 ML INFUS BTL 75 ML ONE; -LIDOCAINE/SOD BICARB 8.4% SYR ID PRN; -NS(*) 0.9% 100 ML BAG 100 ML IVPB PRN; -RITUXIMAB IV ONE; -WATER STERILE 10 ML VIAL IVP PRN; -[UNRECOGNIZED DRUG - OTHER] IV ONE; -diphenhydrAMINE 25 MG CAP PO PRN
--- NOTE | 2017-09-26 11:07 | RADIOLOGY IMAGING REPORT ---
FACILITY: [facility] - [place] PATIENT NAME: Bernardo Miller : 1950 MR: [id number] V: [id number] EXAM DATE: ORDERING PHYSICIAN: RAYSHAWN FARRIS TECHNOLOGIST: Location: [facility] [place] Patient: Bernardo Miller : 1950 Visit/Account:[id number] Date of Sevice: 09/26/2017 CHEST W W/O CONTRAST History: Hemoptysis ADDITIONAL CLINICAL HISTORY: None TECHNIQUE: Contiguous axial images were performed through the chest to the level of the adrenal gla nds with and without IV contrast. Coronal and sagittal reformatting was also performed. Dose Loweri ng Technique One of the following dose optimization techniques was utilized in the performance of this exam: Autom ated exposure control; adjustment of the mA and/or kV according to the patient's size; or use of an i terative reconstruction technique. Specific details can be referenced in the facility's radiology C T exam operational policy. Contrast: 75 mL [id number] COMPARISON STUDIES: April 07, 2016. Lungs / Pleura: Previously noted pulmonary nodule lateral aspect left upper lobe has slightly incre ased in size now measuring 8.5 mm as opposed to 5.8 mm previously and is best seen on image 157 of se [place]ie 7. No other pulmonary nodules are seen. There are patchy areas of airspace consolidation in th e posterior segment of the right upper lobe some with a tree-in-bud configuration and some areas appe ar more spiculated which are new when compared to the prior study. There is an additional irregular area of airspace consolidation in the posterior lateral aspect of the right lower lobe measuring appr oximately 1.6 x 1.8 cm. Mediastinum/nodes: Small right hilar and pretracheal lymph nodes have remained stable. Incidentally noted is circumferential thickening of the upper thoracic esophagus Heart and vessels: There is an implanted right-sided port distal tip in superior vena cava. There a re mild coronary artery calcifications Musculoskeletal / Body wall: No aggressive appearing bone lesions are seen. There is a stable scle rotic density posterior spinous process of T2 Upper abdomen: Postsurgical changes from a cholecystectomy. There is fatty infiltration of the gail er. IMPRESSION: Previously noted 5.8 mm nodule in the left upper lobe has slightly increased in size now measuring 8. 5 mm There are patchy areas of airspace consolidation the posterior segment right upper lobe some with geovanna e-in-bud configuration in some areas appear more spiculated which could represent an acute infectious /inflammatory process however short-term interval follow-up recommended. Additional airspace consolidation posterior lateral aspect right lower lobe may represent scarring ve rsus atelectasis although again short-term interval follow-up recommended. Circumferential narrowing of the upper thoracic esophagus. Endoscopy may be helpful for further eval uation Report Dictated By: Sapna Ernandez MD at 09/26/2017 10:39 AM Report E-Signed By: Sapna Ernandez MD at 09/26/2017 11:02 AM WSN:[id number]
== END ==
LOC: CT 02:12
PROVIDERS: ATTEND Physician Assistant Medical
DX: K22.2 Esophageal obstruction (principal); R91.8 Other nonspecific abnormal finding of lung field
CPT/HCPCS: 71270; Q9967

== ENCOUNTER 2017-10-13 00:37 | Day surgery (SDC) | payer MEDICARE, OTHER ==
[~2017-10-13] VITALS: Ht 175.3 cm; Wt 101.2 kg
[~2017-10-13 00:37] MED LIST changes: +CHOL500025 PO; +DEXA4TAB7; +DULO60CA7; +FENT1PAT40; -IOPAMIDOL 76% 75 ML INFUS BTL 75 ML ONE; +MULT1TAB64 PO; +RIT100I IV
[2017-10-13] MEDS ORDERED: KETAMINE HCL 200 MG/20 ML MDV ONE (07:25)
[2017-10-13 09:51] VITALS: BP 143/86
[2017-10-13] MEDS ORDERED: NORMOSOL R SOLN(*) 1000 ML BAG 1,000 ML IV PRN (10:00)
[2017-10-13] MEDS ORDERED: LIDOCAINE/SOD BICARB 8.4% SYR ID ONE (10:00)
[2017-10-13 11:37] VITALS: BP 109/76
--- NOTE | 2017-10-13 12:00 | Short(Outpt) Discharge Summary ---
Discharge Summary Reason for Hosp/Final Diag: (1) Dysphagia Status: Chronic Hospital Course & Plan: EGD with biopsies completed without problems. (2) Spitting up blood Status: Chronic Departure Discharge to: Home, Self Care Discharge Instructions Home Meds Active Scripts Pregabalin (LYRICA) 200 Mg Cap, 200 MG PO BID, #60 CAP 2 Refills Prov:JOSE GARCIA [employer]-BC, ONC 06/02/17 Zolpidem Tartrate (ZOLPIDEM TARTRATE) 10 Mg Tablet, 1 TAB PO QHS, #30 TAB 4 Refills Prov:JOSE GARCIA [employer]-BC, ONC 03/30/17 Reported Medications Duloxetine HCl (Duloxetine HCl) 60 Mg Capsule.dr, 120 MG Q AM for Anxiety 10/12/17 Dexamethasone (Decadron) 4 Mg Tablet 10/11/17 Cholecalciferol (Vitamin D3) (VITAMIN D3) 5,000 Unit Tablet, 5000 UNIT PO 10/11/17 Fentanyl (Fentanyl) 1 Each Patch.td72, 25 MCG Q3D 10/11/17 Multivitamin (MULTI VITAMIN DAILY) 1 Each Tablet, 1 EACH PO QDAY 10/09/17 Valacyclovir Hcl (VALTREX) 1,000 Mg Tablet, 1000 MG PO DAILY 08/08/17 Tamsulosin Hcl (FLOMAX) 0.4 Mg Cap.er.24h, 0.4 MG PO DAILY, CAP 05/06/16 Pantoprazole Sodium (PANTOPRAZOLE SODIUM) 40 Mg Tablet.dr, 40 MG PO QODAY, TAB.SR 05/06/16 Atorvastatin (LIPITOR) 80 Mg Tab, 1 TAB PO QDAY, TAB 04/11/16 Metoprolol Succinate (METOPROLOL SUCCINATE) 50 Mg Tab.er.24h, 1 TAB PO QAM, TAB 04/11/16 Aspirin (ASPIRIN) 81 Mg Tab.chew, 81 MG PO QDAY, TAB.CHEW 08/31/15 Ubidecarenone (CO Q-10) 200 Mg Capsule, 200 MG PO QDAY, CAPSULE 08/15/14 [place]-3 Fatty Acids (FISH OIL) 300 Mg Capsule, 300 MG PO BID, CAPSULE 08/15/14 Allopurinol (ALLOPURINOL) 100 Mg Tablet, 300 MG PO QDAY, TAB 08/15/14 Discontinued Reported Medications Rituximab (RITUXAN) 100 Mg/10 Ml Soln, 100 MG IV [id number] 10/11/17 Cholecalciferol (Vitamin D3) (D3-50) 50,000 Unit Capsule, 94498 UNIT PO DAILY, CAPSULE 08/15/14 [Magnesium] No Conflict Check, 500 MG PO QDAY 04/11/16 Discontinued Scripts Duloxetine Hcl (CYMBALTA) 60 Mg Capsule.dr, 120 MG PO QDAY, #30 CAP 9 Refills Prov:YANET CASTILLO MD 10/09/17 Fentanyl (Fentanyl) 1 Each Patch.td72, 50 MCG TD Q72H, #10 MCG Prov:JOSE GARCIA [employer]-BC, ONC 06/02/17 Tramadol Hcl (TRAMADOL HCL) 50 Mg Tablet, 50-100 MG PO PRN, #60 TAB 1 Refill Prov:JOSE GARCIA [facility], ONC 11/03/16 Temazepam (TEMAZEPAM) 15 Mg Capsule, 15 MG PO QHS, #30 CAPSULE 2 Refills Prov:JOSE GARCIA [facility], ONC 05/13/16 Lorazepam (LORAZEPAM) 1 Mg Tab, 1 TAB PO Q4-6H Y for ANXIETY, #30 TAB 1 Refill Prov:JOSE GARCIA [facility]-BC, ONC 02/08/16 Follow up Referrals: General Surgery - 10/30/17 @ Surgery, General with Yanet Castillo Md You have a follow up appointment scheduled with Dr. Castillo on 10/30/17, at 10:45am. Diet: Regular Activity: As Tolerated Problem Qualifiers (1) Dysphagia: Dysphagia type: oropharyngeal phase Qualified Codes: R13.12 - Dysphagia, oropharyngeal phase YANET CASTILLO MD Oct 13, 2017 12:00
[2017-10-13] MEDS ORDERED: LIDOCAINE MPF 1% 5 ML VIAL ONE (12:10)
[2017-10-13] MEDS ORDERED: PROPOFOL EMUL(*) 10MG/ML 20 ML 40 ML ONE (12:10)
[2017-10-13 12:12] VITALS: BP_SYST 112; BP_SYST 114; BP_DIAS 79; BP_DIAS 81
== END 2017-10-13 12:25 | disposition home or self-care (01) ==
LOC: OR 00:37
PROVIDERS: ATTEND Surgery
DX: K22.70 Barrett's esophagus without dysplasia (principal)
CPT/HCPCS: 43239; 88305; J2001; J2704; J3490

== ENCOUNTER → 2017-10-27 | Outpatient (CLI) | payer MEDICARE, OTHER ==
[~2017-10-27] MED LIST changes: +BARIUM SULFATE 148 GM POWDER ONE; +BARIUM SULFATE 240 ML ORAL SUS (NECTAR) ONE
--- NOTE | 2017-10-27 12:03 | SLP MODIFIED BARIUM SWALLOW ---
Speech Language Pathology Modified Barium Swallow Evaluation Report Date of Evaluation: 10/27/2017 Patient Name: Bernardo Miller Patient : 1950 Clinician: Annabelle Mejia M.S., CCC-ACCOUNTS PAYABLE ADMINISTRATOR BACKGROUND The patient is a 67 year old male w/ pmhx of GERD, Barretts esophagus, and reports of dysphagia. Recent EGD illustrated thickening of upper thoracic esophagus. PT was referred for an MBSS to analyze oropharyngeal structure and function 2/2 reports of swallowing difficulties and constant globus sensation in pharynx. Oxygen Supplementation: none Level of Consciousness: non-altered Cognition: WFL Language: WFL Speech: WFL Voice: WFL Non-verbal Oral Structure and Function: WFL Pain with Swallow: denies; reports some discomfort. MODIFIED BARIUM SWALLOW In conjunction with radiology, lateral view with trials of the following consistencies: 7.5 ml of thin liquid, 15 ml of thin liquid, thins via self- serve cup sip, thins via straw, pureed solids, mechanically soft solids, mixed consistencies, regular solids, and a 1cm barium pill. ORAL STAGE Minimal dysphagia with mild lingual weakness resulting in mild residue on lingual surface and base of tongue across all PO trials. Pt easily cleared material from oral cavity with use of double swallow. Pt also with somewhat decreased oral containment and premature posterior loss of saliva while masticating soft solid consistencies. This was not observed with any other texture. PHARYNGEAL STAGE Mild dysphagia. Pt exhibited diminished hyolaryngeal elevation and excursion, mildly decreased epiglottic inversion, reduced posterior pharyngeal wall movement, and delayed initiation of pharyngeal swallow to the level of the valleculae across majority of trials. This resulted in vallecular and posterior pharyngeal wall residue with trials of thin liquids and pureed solids. Pt also with inconsistent residue observed in pyriforms. Independent execution of double swallow was noted during majority of PO trials with successful clearance of material. Consistent, shallow penetration was noted during the swallow with all thin liquid attempts. No penetration or aspiration noted with any other consistency. Thin Liquid: delayed swallow onset observed to the level of the valleculae with material spilling over tip of epiglottis. Consistent penetration occurred during the swallow with all volumes and delivery methods (7.5 ml, 15 ml, cup sip , straw sip). Mild to moderate post-swallow residue noted in valleculae and mild residue noted on posterior pharyngeal wall with 15 ml, cup sip, and straw sip. Trace residue noted in pyriforms. Pureed Food: WFL. Mechanical Soft Foods: delayed swallow onset to the level of the valleculae with pooling of saliva noted in vallecular space during mastication and prior to swallow initiation. Mild vallecular and pyriform residue noted after the swallow. Mixed Consistencies: delayed swallow onset to the level of the valleculae. Minimal residue in valleculae and on base of tongue after the swallow. Regular Solids: delayed swallow onset to the level of the valleculae. Minimal residue in valleculae and on base of tongue after the swallow. Penetration/Aspiration Scale*: Thin liquid: Score of 2, material enters airway remains above vocal folds, and is ejected from airway Puree, soft, mixed, and regular solids: Score of 1, contrast does not enter airway Pill: Score of 1, contrast does not enter airway *(Loli et al. 1996) ESOPHAGEAL STAGE Peristaltic movement appears to be WNL. 1cm pill was quickly cleared to stomach without difficulty. Prominence noted in posterior cervical esophagus against contrast. SUMMARY and RECOMMENDATIONS Aspiration Risk: Mildly elevated risk 2/2 mild pharyngeal weakness, delayed swallow onset, and decreased hyolaryngeal ROM with penetration noted during all thin liquid trials. Hx of esophageal dysphagia may further elevate risk. 1. Diet: No need for modification in consistency of diet is indicated. Avoid problematic foods. 2. Patient was provided with verbal and visual education regarding swallow anatomy and safe swallow recommendations. 3. Recommend ST services to address identified areas of pharyngeal weakness and via participation in dysphagia exercise program. Pt reported frustration with constant need to execute double swallow and sensation of material sticking in throat. Discussed referral recommendations with patient; however, he appeared hesitant to commit to outpatient rehabilitation program at this time. Pt was encouraged to monitor symptoms and follow-up with ST and primary care physician as needed. Thank you for this referral. Please call [phone] to contact the ACCOUNTS PAYABLE ADMINISTRATOR. Annabelle Mejia M.S., [facility]-ACCOUNTS PAYABLE ADMINISTRATOR [*] SHAHNAZ
--- NOTE | 2017-10-27 15:56 | RADIOLOGY IMAGING REPORT ---
FACILITY: [facility] PATIENT NAME: Bernardo Miller : 1950 MR: [id number] V: [id number] EXAM DATE: ORDERING PHYSICIAN: YANET CASTILLO TECHNOLOGIST: Location: [facility] Patient: Bernardo Miller : 1950 Visit/Account:[id number] Date of Sevice: 10/27/2017 Exam type: ESOPH VIDEO SWALLOWING History: Dysphasia, history of Malik's esophagus, spitting up blood Comparison: None. Findings: The modified barium swallow was performed by the speech pathologist. Patient received thin barium an d various solids substances and a barium tablet. There is mild pharyngeal dysphasia and trace to mil d laryngeal penetration with thin barium. Please see the speech pathologist report for complete deta ils. The fluoroscopy dose area product was 345.96 micro-Ford per meter squared IMPRESSION: 1. As above Report Dictated By: Sapna Ernandez MD at 10/27/2017 3:51 PM Report E-Signed By: Sapna Ernandez MD at 10/27/2017 3:52 PM WSN:[id number]
== END ==
LOC: RAD 04:09
PROVIDERS: ATTEND Surgery
DX: R04.2 Hemoptysis (principal); R13.10 Dysphagia, unspecified; Z87.19 Personal history of other diseases of the digestive system
CPT/HCPCS: 74230

== ENCOUNTER 2017-12-08 08:18 | Outpatient (RCR) | payer MEDICARE, OTHER ==
[2017-10-06 08:36] LABS: PLATELET COUNT, AUTOMATED 166 K/uL (150-450)
[2017-10-06 08:52] VITALS: BP 116/72
--- NOTE | 2017-10-06 13:18 | ONC Progress Note - NP.Halsey ---
Patient History: FH: Alzheimers disease MOTHER FH: COPD (chronic obstructive pulmonary disease) MOTHER FH: brain aneurysm MOTHER FH: diabetes mellitus Maternal Grandmother FH: leukemia FATHER Social History: Social History This is a 66 Yr old White male. Patient is . He has 2 daughters. 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 Alcohol History Social drinker. He chews tobacco, but denies smoking tobacco and denies any abuse of illicit drugs. Recreational Drug History Denies Hx Smoking: No (States he chews 1 can every week) Smoking Status: Former Smoker Exposure to Second Hand Smoke?: No Oncology History - The patient is a 66-year-old male who is been treated for Waldenstrom macroglobulinemia. patient was followed in the past for Erythrocytosis, treated with therapeutic phlebotomies and his counts normalized. -Patient was found to have 0.6 g/dL IgM lambda light chains specificity of monoclonal protein. He was also found to have serum IgM level of 751. - BMB in 2015 revealed hypercellular for age, 50% to 75% with trilineage hematopoiesis with maturation and mild dyspneic cardiopoiesis.There was no evidence of bone marrow involvement by lymphoplasmacytic lymphoma - His peripheral blood did reveal the presence of rare circulating plasmacytoid and large granular lymphocytes. - No flow cytometry, FISH, cytogenetic, or molecular studies done from the bone marrow. - CT chest, abdomen, and pelvis done on August 18, 2014 showed normal sized spleen, normal appearing lymph nodes in the chest, abdomen, and pelvis with right inguinal hernia containing omentum with small hypodense lesion within the left lobe of the liver medial segment most likely represents a focal fatty infiltration. - On August 15, 2014 patient has beta 2-microglobulin which was normal at 1.7. Serum viscosity was normal at 1.29. IgG was normal at 843. IgA was normal at 123. IgM was high at 551. - Hepatitis surface antigen was negative. Hepatitis B core IgM was also negative. Hepatitis A antibody IgM was negative. Hepatitis C antibody by RICKY was negative. Hepatitis B core was negative. Uric acid was normal at 4.3. Cold agglutinin was also negative. - Skeletal bone survey done on August 25, 2014 came back inconclusive. - A 24-hour urine showed normal kappa free light chain at 1.29 and lambda free light chain at 1.92. Beta-2 microglobulin was normal at 1.9. IgG was normal at 826, IgA was normal at 130, IgM was high at 490. Uric acid was normal at 4.4. - The patient has been evaluated at the [facility] under the care of Dr. Nick Mejia. - The patient had sural nerve biopsy which came back negative. He has also a good bone marrow aspiration biopsy, which was also negative, but molecular studies showed Mutation detected at C.794T more than C of NYD88 mutation, suggestive of Waldenstrom macroglobulinemia. - 09/2017 Hemoptysis. Resolved at present time. - A recent CT done on 09/26/2017 revealed a solitary nodule increase from 5.8mm (Mar 2016) to 8.5mm 08/2017. in left lower lobe. (See ADINCON for complete report). - A PET scan was ordered 10/06/17. TREATMENT November 2014 The patient started treatment with Ibrutinib 420 mg daily in November 2014, which was stopped in July 2015 because of progression of his disease. May 14, 2015 The patient started treatment with CARD chemotherapy with carfilzomib, rituximab and dexamethasone on May 14, 2015. August 28, 2015 The patient completed six cycles of CARD with Kyprolis, rituximab and dexamethasone on August 28, 2015 and treatment was stopped because of the development of Kyprolis induced cardiomyopathy. September 25, 2015. The patient started treatment with cyclophosphamide with Rituximab , and Dexamethasone on September 25, 2015. The patient quit taking cyclophosphamide because of the side-effect and he is maintained on rituximab and dexamethasone with stabilization of his IgM level and monoclonal protein 07/2017 patient currently getting Rituximab 10mg injections, and Dexamethasone 0.5mg Iv with stabilization of his IgM level and monoclonal protein for his Waldenstrom macroglobulinemia. 10/06/2017 currently on Lyrica and 25mcg of fentanyl patch q 72 hours.Goal is to taper his pain medication gradually 25mc of fentanyl patch q 72 hrs. His general condition is improving significantly. His neuropathic pain resolved , goal is to taper down his Fentanyl patch gradually [id number] from 50mcg to 25mcg to complete discontinuation as symptoms improve. Review of Systems Constitution: Denies Appetite/Weight Change, Denies Fever/Chills/Sweating, Denies Recent Infection, Denies Other Cardiovascular: No Chest Pain, No Orthopnea, No Edema, No Palpitations, No OTHER Respiratory: Cough, Hemoptysis (dark brown ), OTHER, No Expectoration, No Shortness of Breath, No Wheezing HEENT: EARS: Tinnitus, NOSE: Nasal Discharge, No THROAT: Sore Throat, No EYES: Dipolpia, No EARS: Hearing Problems, No NOSE: Epistaxis, No THROAT: Mouth Ulcers , No EYES: Vision Change, No OTHER Gastrointestinal: No Nausea, No Vomitting, No Diarrehea, No Constipation, No Heart Burn, No Swallowing Difficulties, No Abdominal Pain, No Other Gentiourinary: No Hematuria, No Dysuria, No Nocturia, Other (rectal bleeding hmeorrhoids) Hematological: No Bleeding, No Weakness, No Enlarged Lyph Nodes, No Bruising, Fatigue, Other Musculogskeletal: Muscle Pain Neurological: No Numbness of Hands, No Tingling in Hands, No Headaches, No Numbness of Feet, No Tingling in Feet, No Convulsions, No Other Psychiatric: Anxiety, Depression Skin: No Skin Rash, No Lumps, No Erythema, No Dry Skin, No Moist Skin, No Other Physical Exam Vital Sign Temperature: 97.0 Pulse: 77 BP Systolic: 116 BP Diastolic: 72 Respiratory Rate: 16 O2 SAT: 94 O2 Delivery: Room Air Height (feet) 5 Height (inches) 67.50 Weight lb: 220 Weight oz: 5.0 Weight Kg (Rafa): [id number] PERFORMANCE STATUS: 0 - Fully active, able to carry on all pre-disease performance w/o restriction. Pain: 2 General: Looks Stable, Well Developed, Well Nourished HEENT: HEAD:Atraumatic Neck: Supple Lungs: Clear to Auscultation Heart: Regular Rate and Rhythm Abdomen: Soft and Nontender, Other Psychiatric: Mood appears normal, Affect appears normal Skin: No Skin Rashes, No Bruising, No Purpura, No Moist Desquamation, No Dry Desquamation, No Errythema, No Mild Errythema, No Moderate Errythema, No Severe Errythema, No Induration, No Other Laboratory Laboratory Tests 10/06/17 08:29 Laboratory Tests 10/06/17 08:29: White Blood Count 6.2, Red Blood Count 5.04, Hemoglobin 16.3, Hematocrit 46.5, Mean Corpuscular Volume 92.2, Mean Corpuscular Hemoglobin 32.4, Mean Corpuscular Hemoglobin Concent 35.2, Red Cell Distribution Width 14.4, Platelet Count 166, Mean Platelet Volume 8.2, Neutrophils (%) (Auto) 61.7, Lymphocytes (% ) (Auto) 20.9, Monocytes (%) (Auto) 14.2, Eosinophils (%) (Auto) 2.4, Basophils (%) (Auto) 0.8, Nucleated RBC Relative Count (auto) 0.0, Neutrophils # (Auto) 3.8, Lymphocytes # (Auto) 1.3, Monocytes # (Auto) 0.9, Eosinophils # (Auto) 0.1 , Basophils # (Auto) 0.1, Nucleated RBC Absolute Count (auto) 0.00, Sodium Level 141, Potassium Level 4.0, Chloride Level 103, Carbon Dioxide Level 26, Blood Urea Nitrogen 17, Creatinine 1.00, Glomerular Filtration Rate Calc > 60.0 , Random Glucose 110, Uric Acid 4.1, Calcium Level 9.2, Total Bilirubin 1.1, Aspartate Amino Transf (AST/SGOT) 23, Alanine Aminotransferase (ALT/SGPT) 30, Alkaline Phosphatase 118, Lactate Dehydrogenase 416, Total Protein 6.2, Albumin 4.0 Allergies & Medications Allergies: Coded Allergies: No Known Drug Allergies (Unverified , 04/11/16) Home Meds Active Scripts Pregabalin (LYRICA) 200 Mg Cap, 200 MG PO BID, #60 CAP 2 Refills Prov:JOSE GARCIA [facility] ONC 06/02/17 Fentanyl (Fentanyl) 1 Each Patch.td72, 50 MCG TD Q72H, #10 MCG Prov:JOSE GARCIA [facility]-BC, ONC 06/02/17 Zolpidem Tartrate (ZOLPIDEM TARTRATE) 10 Mg Tablet, 1 TAB PO QHS, #30 TAB 4 Refills Prov:JOSE GARCIA [facility]-LUIGI, ONC 03/30/17 Tramadol Hcl (TRAMADOL HCL) 50 Mg Tablet, 50-100 MG PO PRN, #60 TAB 1 Refill Prov:JOSE GARCIA [facility]-BC, ONC 11/03/16 Duloxetine Hcl (CYMBALTA) 60 Mg Capsule.dr, 60 MG PO QDAY, #30 CAP 9 Refills Prov:JOSE GARCIA [facility]-BC, ONC 08/15/16 Temazepam (TEMAZEPAM) 15 Mg Capsule, 15 MG PO QHS, #30 CAPSULE 2 Refills Prov:JOSE GARCIA [facility] [facility], ONC 05/13/16 Lorazepam (LORAZEPAM) 1 Mg Tab, 1 TAB PO Q4-6H Y for ANXIETY, #30 TAB 1 Refill Prov:JOSE GARCIA [facility], ONC 02/08/16 Reported Medications Valacyclovir Hcl (VALTREX) 1,000 Mg Tablet, 1000 MG PO DAILY 08/08/17 Tamsulosin Hcl (FLOMAX) 0.4 Mg Cap.er.24h, 0.4 MG PO DAILY, CAP 05/06/16 Pantoprazole Sodium (PANTOPRAZOLE SODIUM) 40 Mg Tablet.dr, 40 MG PO QDAY, TAB.SR 05/06/16 [Magnesium] No Conflict Check, 500 MG PO QDAY 04/11/16 Atorvastatin (LIPITOR) 80 Mg Tab, 1 TAB PO QDAY, TAB 04/11/16 Metoprolol Succinate (METOPROLOL SUCCINATE) 50 Mg Tab.er.24h, 1 TAB PO QAM, TAB 04/11/16 Aspirin (ASPIRIN) 81 Mg Tab.chew, 81 MG PO QDAY, TAB.CHEW 08/31/15 Cholecalciferol (Vitamin D3) (D3-50) 50,000 Unit Capsule, 52427 UNIT PO DAILY, CAPSULE 08/15/14 Ubidecarenone (CO Q-10) 200 Mg Capsule, 200 MG PO QDAY, CAPSULE 08/15/14 [place]-3 Fatty Acids (FISH OIL) 300 Mg Capsule, 300 MG PO BID, CAPSULE 08/15/14 Allopurinol (ALLOPURINOL) 100 Mg Tablet, 300 MG PO QDAY, TAB 08/15/14 Assessment/Plan EVALUATION DATE & TIME: 10/06/2017; 13:18 PRIMARY CARE PHYSICIAN: YANET SPIVEY ACCOMPANIED BY: CHIEF COMPLAINT: HEMOPTYSIS LAST SEEN BY DR. MARI: ON 08/18/2017 The patient is a 66-year-old male who is been treated for Waldenstrom macroglobulinemia. Patient was followed in the past for Erythrocytosis, treated with therapeutic phlebotomies and his counts normalized. -Patient was found to have 0.6 g/dL IgM lambda light chains specificity of monoclonal protein. He was also found to have serum IgM level of 751. Patient presents today to clinic accompany by his in no acute distress, patient is afebrile and hemodynamically stable.She had called and spoke to me yesterday in regards to spitting up blood. Patient was advised to come into the clinic or go to the nearest ER. 1. Waldenstrom macroglobulinemia with IgM paraproteinemia with IgM lambda monoclonal protein. Patient currently on treatment with rituximab every two months. Tolerating very well so far. His monoclonal protein showed a faint band in the IgM lambda. His IgM level is normal at 43. He initially started treatment for his Waldenstrom macroglobulinemia with ibrutinib with initial response, but he progressed after that and he started treatment with CARD chemotherapy with Kyprolis, rituximab and dexamethasone between May 14, 2015 through August 28, 2015, and the patient received six cycles with response, but he developed Kyprolis-induced cardiomyopathy, so the treatment was stopped after that. He received after that treatment with rituximab, dexamethasone and cyclophosphamide, but he stopped cyclophosphamide because of the side effects. Patient has maintained after that on rituximab and dexamethasone with stabilization of his monoclonal protein, which is currently just a faint band in the IgM lambda. I am planning to continue treatment with rituximab every two months rather than every month. He resumed his treatment with rituximab in November 2016 after he stopped it for some time. He is doing fine currently. 2. Hemoptysis. Resolved at present time. Patient informs me that he has been coughing up blood and feeling heaviness on his chest while he is coughing, predominantly in the morning. but that is now resolved. Patient denies SOB, chest pain, palpitations. A recent CT done on 09/26/2017 revealed a solitary nodule increase from 5.8mm (Mar 2016) to 8.5mm 08/2017. in left lower lobe. (See ADINCON for complete report). 3. History of shingles of the head and neck area, status post treatment with Valtrex. He is currently on prophylactic Valtrex 1 g daily and will continue the same given that the patient will develop immunosuppression from his disease and treatment with rituximab. 4. Neuropathy with Waldenstrom macroglobulinemia. Significant improvement. on Lyrica and 25mcg of fentanyl patch q 72 hours.Goal is to taper his pain medication gradually. Patient is agreeable with that. Patient instructed to place fentanyl patch away from bony areas to maximize absorption. 5. Gout with gouty arthritis, on allopurinol. 6. Hypertension on treatment. 7. Gastroesophageal reflux disease on Protonix. 8. Malik esophageal. Planning to see Dr. Hoover next week for pre-op work for endoscopy. 9. Anxiety: Patient encouraged to take anxiolytics as prescribed. PLAN 1. PET Scan standard given increase of left lower lung solitary nodule. 2. Continue Rituximab. q 2 months as planned 2. Patient to return in two months with CBC, chem panel, LDH, uric acid, myeloma profile. 3. Fentanyl 25 mcg, taper gradually take it off. 4. Continue Lyrica treatment. 5. Monitor Multiple myeloma panel results 6. Patient is to contact us for any new concerns or complaints. TIME SPENT; 45 minutes >50% incudes but not limited to discussion, counselling and co-ordination of care. discussion with other health care providers, record review, review of lab work, diagnostic tests. Plan discussed extensively with patient and . All the questions answered today. Thank you for the opportunity to be involved in the care of Bernardo Bey. Billing level: 4 See my note above for details. LEW MIGUEL, ONC Oct 06, 2017 13:18
[2017-10-12 09:22] VITALS: BP 121/93
[2017-10-12] MEDS: DEXAMETHASONE SOD 20MG/5 ML VL IVP PRN (09:54)
[2017-10-12] MEDS: HEPARIN FLSH (PORT) 500 UN/5ML IVP PRN (15:11)
--- NOTE | 2017-10-12 16:40 | ONCOLOGY FOLLOW UP NOTE ---
EVENT DATE: October 12, 2017 DIAGNOSES 1. IgM paraproteinemia, highly suspicious for Waldenstrom macroglobulinemia. 2. 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 3. Pain due to neuropathy. CHIEF COMPLAINT The patient is here today for followup of his Waldenstrom macroglobulinemia, on treatment with rituximab. ONCOLOGY HISTORY The patient is a 66-year-old male who was followed in the past for erythrocytosis, treated with phlebotomies and his counts normalized. He presented recently with worsening neuropathy of the right lower extremity. He has been treated for gout with allopurinol and for the neuropathy with gabapentin. He saw a neurologist who diagnosed him with neuropathy and during his evaluation for neuropathy the patient was found to have 0.6 g/dL IgM lambda light chains specificity of monoclonal protein. He was also found to have serum IgM level of 751. Patient has been evaluated by Dr. Cornejo who requested a bone marrow test which was done on August 20, 2014 and reports of the bone marrow was hypercellular for age, 50% to 75% with trilineage hematopoiesis with maturation and mild dyspneic cardiopoiesis. There was no evidence of bone marrow involvement by lymphoplasmacytic lymphoma. His peripheral blood did reveal the presence of rare circulating plasmacytoid and large granular lymphocytes. No flow cytometry, FISH, cytogenetic, or molecular studies done from the bone marrow. CT chest, abdomen, and pelvis done on August 18, 2014 showed normal sized spleen, normal appearing lymph nodes in the chest, abdomen, and pelvis with right inguinal hernia containing omentum with small hypodense lesion within the left lobe of the liver medial segment most likely represents a focal fatty infiltration. On August 15, 2014 patient has beta 2-microglobulin which was normal at 1.7. Serum viscosity was normal at 1.29. IgG was normal at 843. IgA was normal at 123. IgM was high at 551. Hepatitis surface antigen was negative. Hepatitis B core IgM was also negative. Hepatitis A antibody IgM was negative. Hepatitis C antibody by RICKY was negative. Hepatitis B core was negative. Uric acid was normal at 4.3. Cold agglutinin was also negative. Skeletal bone survey done on August 25, 2014 came back inconclusive. A 24-hour urine showed normal kappa free light chain at 1.29 and lambda free light chain at 1.92. Beta-2 microglobulin was normal at 1.9. IgG was normal at 826, IgA was normal at 130, IgM was high at 490. Uric acid was normal at 4.4. The patient has been evaluated at the [facility] under the care of Dr. Nick Mejia. The patient had sural nerve biopsy which came back negative. He has also a good bone marrow aspiration biopsy, which was also negative, but molecular studies showed Mutation detected at C.794T more than C of NYD88 mutation, suggestive of Waldenstrom macroglobulinemia. The patient started treatment with ibrutinib 420 mg daily in November 2014, which was stopped in July 2015 because of progression of his disease. The patient started treatment with CARD chemotherapy with carfilzomib, rituximab and dexamethasone on May 14, 2015. The patient is here today for his cycle #6 of CARD chemotherapy for his Waldenstrom macroglobulinemia. His general condition is improving gradually. His neuropathic pain resolved completely, but on decreasing the dose of fentanyl patch from 25 to 12 mcg q.72h., his pain restarted becoming more annoying to him, but currently with 25 mcg, the patient is free of pain and free of any complaints currently. 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 The patient started treatment with cyclophosphamide with rituximab and dexamethasone on September 25, 2015. The patient quit taking cyclophosphamide because of the side-effect and he is maintained on rituximab and dexamethasone with stabilization of his IgM level and monoclonal protein. HISTORY OF PRESENT ILLNESS Patient is here today for followup of his Waldenstrom macroglobulinemia on treatment with rituximab. He is complaining of some cough with brownish- colored sputum. He has pain in the left leg and foot occasionally. He is weak , tired and fatigued. PAST MEDICAL HISTORY 1. Hypertension. 2. Hypertriglyceridemia. 3. Gout. 4. Gouty arthritis. 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 PAST SURGICAL HISTORY 1. Cholecystectomy. 2. Appendectomy. 3. Bilateral hip arthroplasties. 4. Knee arthroscopy x2. 5. Right foot surgery. FAMILY HISTORY Father had chronic leukemia, most probably CLL. SOCIAL HISTORY Patient is . He has 2 daughters. 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 He drinks alcohol socially. He chews tobacco, but denies smoking tobacco and denies any abuse of illicit drugs. CURRENT MEDICATIONS 1. Amitriptyline 50 mg at bedtime. 2. Fentanyl patch 25 mcg q.72h. 3. Ambien 12.5 mg at bedtime p.r.n. 4. Lyrica 50 mg two tablets at bedtime. 5. Ativan 1 mg q.4-6h. p.r.n. for anxiety. 6. Lipitor 80 mg at bedtime. 7. Vitamin D3 at 50,000 units orally daily. 8. CoQ10 at 200 mg daily. ALLERGIES No known drug allergies. REVIEW OF SYSTEMS CONSTITUTIONAL: No appetite or weight change. No fever, chills. He has sweating. No recent infection. HEENT: Ears: No tinnitus or hearing problem. Nose: No nasal discharge or epistaxis. Throat: No sore throat or mouth ulcers. Eyes: No diplopia or visual changes. RESPIRATORY: He has cough with brownish-colored sputum. CARDIOVASCULAR: No chest pain, orthopnea, or paroxysmal nocturnal dyspnea (PND) . No edema. No palpitations. GASTROINTESTINAL: No nausea or vomiting. He has bloody stools multiple times, only in one day, but resolved. No constipation. No change in bowel movements. No heartburn or swallowing difficulties. No abdominal pain. No jaundice. No hematemesis, melena or rectal bleeding. GENITOURINARY: No hematuria or dysuria. MUSCULOSKELETAL: He has pain in the left leg and foot occasionally. NEUROLOGICAL: No tingling or numbness in the hands or feet. No headaches or convulsions. HEMATOLOGIC/LYMPHATIC: No bleeding or easy bruising. He is weak, tired and fatigued. No enlarged lymph nodes. SKIN: No skin rash or lumps. PSYCHIATRIC: No anxiety or depression. PHYSICAL EXAMINATION GENERAL: Looks stable. Well-developed, well-nourished, and in no acute distress. VITAL SIGNS: Blood pressure 121/93, pulse 80 per minute, respirations 16 per minute, temperature 97.3, pulse ox 93% on room air. HEENT: Head: Atraumatic. No sinus tenderness to palpation. Eyes: No icterus or conjunctivitis. Mouth and throat: No oral thrush or mucositis. NECK: Supple. No cervical or supraclavicular lymphadenopathy. LUNGS: Clear to auscultation and percussion bilaterally. HEART: Regular rate and rhythm. No gallops, murmurs, clicks or rubs. ABDOMEN: Soft and lax. No tenderness. No hepatosplenomegaly. No masses. EXTREMITIES: No cyanosis, clubbing or edema. LYMPHATICS: No peripheral lymphadenopathy. NEUROLOGICAL: Conscious, alert and oriented times three. No focal motor or sensory deficits. PSYCHIATRIC: Mood and affect appear normal. SKIN: No skin rash, bruise or purpuric eruption. DIAGNOSTIC DATA CBC showed white count 6.2, hemoglobin 16.3, hematocrit 46.5, platelets 166, 000. Chem panel is totally normal. Beta-2 microglobulin is normal at 1.9. [place] free light chain is 0.17, which is even lower than normal. Lambda free light chain is 0.59 which is normal. IgG is 299, IgA is 31 and IgM is 49. Serum protein electrophoresis showed a faint band in the IgM lambda suggestive of a specific immune response or early monoclonal protein. ASSESSMENT 1. Waldenstrom macroglobulinemia with IgM paraproteinemia with IgM lambda monoclonal protein. Patient currently on treatment with rituximab every two months. He is doing fine currently. His monoclonal protein showed a faint band in the IgM lambda. The IgM level currently is 49, which is stable. His pain in the left leg is under control. Patient initially treated with ibrutinib with initial response, and on progression he started treatment with CaRD chemotherapy with Kyprolis, rituximab and dexamethasone between May through August 28, 2015, and the patient received six cycles with response , but he developed Kyprolis-induced cardiomyopathy, so the treatment was stopped after that. He received after that treatment with rituximab, dexamethasone and cyclophosphamide, but he stopped cyclophosphamide because of the side effects. Patient has maintained after that on rituximab and dexamethasone with stabilization of his monoclonal protein, which is currently just a faint band in the IgM lambda. I am planning to continue his treatment with rituximab every two months. I will see him again in two months with CBC, chem panel, LDH, uric acid and myeloma profile. 2. Neuropathy with Waldenstrom macroglobulinemia, currently on Lyrica with good control. He is currently also on a tapering dose of fentanyl patch. He dropped his dose from 50 to 37, and currently he is using 25 mcg every three days. I am planning after he will finish his 25 mcg patches to prescribe after that the 12 mcg patches until discontinuation. 3. History of shingles of the head and neck areas. Status post treatment with Valtrex. He is currently on prophylactic Valtrex 1 g daily. I will continue the same dose during his treatment. 4. Gout with gouty arthritis, on allopurinol. 5. Hypertension, on treatment. 6. Gastroesophageal reflux disease, on Protonix. PLAN 1. Rituximab. 2. Patient to return in two months with CBC, chem panel, LDH, uric acid, myeloma profile. 3. Fentanyl 50 mcg, and will try to taper it to 12 mcg, and then we will take him off the fentanyl patches. 4. Continue Lyrica. 5. Patient is to contact us for any new concerns or complaints. MTDD
[2017-11-10 08:35] VITALS: BP 125/76
[2017-11-10] MEDS: HEPARIN FLSH (PORT) 500 UN/5ML IVP PRN (08:41)
[2017-12-01 08:32] VITALS: BP 115/80
[2017-12-01] MEDS: HEPARIN FLSH (PORT) 500 UN/5ML IVP PRN (08:35)
[2017-12-01 08:40] LABS: PLATELET COUNT, AUTOMATED 168 K/uL (150-450)
[~2017-12-08] VITALS: Ht 171.4 cm; Wt 104.2 kg
[~2017-12-08 08:18] MED LIST changes: +ACETAMINOPHEN 325 MG TAB PO PRN; +ALTEPLASE RECOMB 2 MG VIAL IVP PRN; -BARIUM SULFATE 148 GM POWDER ONE; -BARIUM SULFATE 240 ML ORAL SUS (NECTAR) ONE; +DEXTROSE 5%(*) 100 ML BAG 100 ML IVPB PRN; +LIDOCAINE/SOD BICARB 8.4% SYR ID PRN; +NS(*) 0.9% 100 ML BAG 100 ML IVPB PRN; +NS(*) 0.9% 500 ML BAG 500 ML IV PRN; +RITUXIMAB IV ONE; -TRAZ-163 PO; +TRAZ100T31 PO; +WATER FOR INJ,STERILE 20 ML IVP PRN; +[UNRECOGNIZED DRUG - OTHER] IV ONE; +diphenhydrAMINE 25 MG CAP PO PRN
[2017-12-08 09:01] VITALS: BP 103/89
[2017-12-08] MEDS: DEXAMETHASONE SOD 20MG/5 ML VL IVP PRN (09:06)
[2017-12-08] MEDS ORDERED: RITUXIMAB IV ONE (10:00)
[2017-12-08] MEDS ORDERED: [UNRECOGNIZED DRUG - OTHER] IV ONE (10:00)
[2017-12-08] MEDS: HEPARIN FLSH (PORT) 500 UN/5ML IVP PRN (13:10)
[2017-12-08] MEDS ORDERED: TES5T (16:22)
--- NOTE | 2017-12-08 16:53 | ONCOLOGY FOLLOW UP NOTE ---
EVENT DATE: December 08, 2017 DIAGNOSES 1. IgM paraproteinemia, highly suspicious for Waldenstrom macroglobulinemia. 2. 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 3. Pain due to neuropathy. CHIEF COMPLAINT The patient is here today for followup of his Waldenstrom macroglobulinemia, on treatment with rituximab. ONCOLOGY HISTORY The patient is a 66-year-old male who was followed in the past for erythrocytosis, treated with phlebotomies and his counts normalized. He presented recently with worsening neuropathy of the right lower extremity. He has been treated for gout with allopurinol and for the neuropathy with gabapentin. He saw a neurologist who diagnosed him with neuropathy and during his evaluation for neuropathy the patient was found to have 0.6 g/dL IgM lambda light chains specificity of monoclonal protein. He was also found to have serum IgM level of 751. Patient has been evaluated by Dr. Cornejo who requested a bone marrow test which was done on August 20, 2014 and reports of the bone marrow was hypercellular for age, 50% to 75% with trilineage hematopoiesis with maturation and mild dyspneic cardiopoiesis. There was no evidence of bone marrow involvement by lymphoplasmacytic lymphoma. His peripheral blood did reveal the presence of rare circulating plasmacytoid and large granular lymphocytes. No flow cytometry, FISH, cytogenetic, or molecular studies done from the bone marrow. CT chest, abdomen, and pelvis done on August 18, 2014 showed normal sized spleen, normal appearing lymph nodes in the chest, abdomen, and pelvis with right inguinal hernia containing omentum with small hypodense lesion within the left lobe of the liver medial segment most likely represents a focal fatty infiltration. On August 15, 2014 patient has beta 2-microglobulin which was normal at 1.7. Serum viscosity was normal at 1.29. IgG was normal at 843. IgA was normal at 123. IgM was high at 551. Hepatitis surface antigen was negative. Hepatitis B core IgM was also negative. Hepatitis A antibody IgM was negative. Hepatitis C antibody by RICKY was negative. Hepatitis B core was negative. Uric acid was normal at 4.3. Cold agglutinin was also negative. Skeletal bone survey done on August 25, 2014 came back inconclusive. A 24-hour urine showed normal kappa free light chain at 1.29 and lambda free light chain at 1.92. Beta-2 microglobulin was normal at 1.9. IgG was normal at 826, IgA was normal at 130, IgM was high at 490. Uric acid was normal at 4.4. The patient has been evaluated at the [facility] under the care of Dr. Nick Mejia. The patient had sural nerve biopsy which came back negative. He has also a good bone marrow aspiration biopsy, which was also negative, but molecular studies showed Mutation detected at C.794T more than C of NYD88 mutation, suggestive of Waldenstrom macroglobulinemia. The patient started treatment with ibrutinib 420 mg daily in November 2014, which was stopped in July 2015 because of progression of his disease. The patient started treatment with CARD chemotherapy with carfilzomib, rituximab and dexamethasone on May 14, 2015. The patient is here today for his cycle #6 of CARD chemotherapy for his Waldenstrom macroglobulinemia. His general condition is improving gradually. His neuropathic pain resolved completely, but on decreasing the dose of fentanyl patch from 25 to 12 mcg q.72h., his pain restarted becoming more annoying to him, but currently with 25 mcg, the patient is free of pain and free of any complaints currently. 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 The patient started treatment with cyclophosphamide with rituximab and dexamethasone on September 25, 2015. The patient quit taking cyclophosphamide because of the side-effect and he is maintained on rituximab and dexamethasone with stabilization of his IgM level and monoclonal protein. HISTORY OF PRESENT ILLNESS Patient is here today for followup of his Waldenstrom macroglobulinemia on treatment with rituximab. He is doing fine currently. He has some pain in the left leg from his neuropathy, which is getting worse after he tried to taper himself off the fentanyl patch. He is currently using 25 mcg patch after going down to 12 mcg, but he has back pain, and increasing the dose of fentanyl he was able to have better control of his pain, but he continues to have still pain with the 25 mcg patch. PAST MEDICAL HISTORY 1. Hypertension. 2. Hypertriglyceridemia. 3. Gout. 4. Gouty arthritis. 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 PAST SURGICAL HISTORY 1. Cholecystectomy. 2. Appendectomy. 3. Bilateral hip arthroplasties. 4. Knee arthroscopy x2. 5. Right foot surgery. FAMILY HISTORY Father had chronic leukemia, most probably CLL. SOCIAL HISTORY Patient is . He has 2 daughters. 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 He drinks alcohol socially. He chews tobacco, but denies smoking tobacco and denies any abuse of illicit drugs. CURRENT MEDICATIONS 1. Amitriptyline 50 mg at bedtime. 2. Fentanyl patch 25 mcg q.72h. 3. Ambien 12.5 mg at bedtime p.r.n. 4. Lyrica 50 mg two tablets at bedtime. 5. Ativan 1 mg q.4-6h. p.r.n. for anxiety. 6. Lipitor 80 mg at bedtime. 7. Vitamin D3 at 50,000 units orally daily. 8. CoQ10 at 200 mg daily. ALLERGIES No known drug allergies. REVIEW OF SYSTEMS CONSTITUTIONAL: No appetite or weight change. No fever, chills. He has sweating. No recent infection. HEENT: Ears: No tinnitus or hearing problem. Nose: No nasal discharge or epistaxis. Throat: No sore throat or mouth ulcers. Eyes: No diplopia or visual changes. RESPIRATORY: He has cough with brownish-colored sputum. CARDIOVASCULAR: No chest pain, orthopnea, or paroxysmal nocturnal dyspnea (PND) . No edema. No palpitations. GASTROINTESTINAL: No nausea or vomiting. He has bloody stools multiple times, only in one day, but resolved. No constipation. No change in bowel movements. No heartburn or swallowing difficulties. No abdominal pain. No jaundice. No hematemesis, melena or rectal bleeding. GENITOURINARY: No hematuria or dysuria. MUSCULOSKELETAL: He has pain in his left leg from his neuropathy. NEUROLOGICAL: No tingling or numbness in the hands or feet. No headaches or convulsions. HEMATOLOGIC/LYMPHATIC: No bleeding or easy bruising. He is weak, tired and fatigued. No enlarged lymph nodes. SKIN: No skin rash or lumps. PSYCHIATRIC: No anxiety or depression. PHYSICAL EXAMINATION GENERAL: Looks stable. Well-developed, well-nourished, and in no acute distress. VITAL SIGNS: Blood pressure 103/89, pulse 101 per minute, respirations 16 per minute, temperature 98.6, pulse ox 91% on room air. HEENT: Head: Atraumatic. No sinus tenderness to palpation. Eyes: No icterus or conjunctivitis. Mouth and throat: No oral thrush or mucositis. NECK: Supple. No cervical or supraclavicular lymphadenopathy. LUNGS: Clear to auscultation and percussion bilaterally. HEART: Regular rate and rhythm. No gallops, murmurs, clicks or rubs. ABDOMEN: Soft and lax. No tenderness. No hepatosplenomegaly. No masses. EXTREMITIES: No cyanosis, clubbing or edema. LYMPHATICS: No peripheral lymphadenopathy. NEUROLOGICAL: Conscious, alert and oriented times three. No focal motor or sensory deficits. PSYCHIATRIC: Mood and affect appear normal. SKIN: No skin rash, bruise or purpuric eruption. DIAGNOSTIC DATA CBC showed white count 5.5, hemoglobin 14.6, hematocrit 41.5, platelets 168, 000. Chem panel is totally normal. PET/CT scan done on October 11, 2017 showed that the left upper lobe nodule is no longer FDG avid and it is smaller compared to the 2016, highly suggestive of benign etiology and no evidence of hypermetabolic malignancy. Beta-2 microglobulin is normal at 1.8. IgG is low at 254, IgA is low at 21, IgM is low at 31. [place] free light chain is low at 0.13, and lambda free light chain is low at 0.2. Immunoelectrophoresis shows a faint band in IgM lambda suggestive of a specific immune response or an early monoclonal protein. ASSESSMENT 1. Waldenstrom macroglobulinemia with IgM paraproteinemia with IgM lambda monoclonal protein. Patient currently on treatment with rituximab every two months. He is doing fine currently. His monoclonal protein showed a faint band in the IgM lambda with is stable. The IgM level currently is 31, which is down from 39 last visit. Patient initially treated with ibrutinib with initial response, and on progression he started treatment with CaRD chemotherapy with Kyprolis, rituximab and dexamethasone between May 14, 2015 through July, and the patient received six courses with response, but he developed Kyprolis-induced cardiomyopathy, so the treatment was stopped after that. He received after that treatment with rituximab, dexamethasone and cyclophosphamide , but he stopped cyclophosphamide because of the side effects. Patient has been maintained after that on rituximab and dexamethasone with stabilization of his monoclonal protein, which is currently just a faint band in the IgM lambda. I am planning to continue rituximab every two months, and I am planning to prolong the frequency to every three months if we can. I will see him again in two months with CBC, chem panel, LDH, uric acid and myeloma profile. I talked to him today about the rare side effect of rituximab with leukoencephalopathy and the patient is aware of that. 2. Neuropathy due to Waldenstrom macroglobulinemia, currently on Lyrica with good control. He started to taper his fentanyl patch, but unfortunately his pain is back, and I am planning to increase his fentanyl patch from 25 to 37 mcg every three days. We will try to control the fentanyl dose based on his response. 3. History of shingles of the head and neck areas. Status post treatment with Valtrex. I am planning to continue prophylactic treatment daily. 4. Gout with gouty arthritis, on allopurinol. 5. Hypertension, on treatment. 6. Gastroesophageal reflux disease, on Protonix. PLAN 1. Rituximab. 2. Patient to return in two months with CBC, chem panel, LDH, uric acid, myeloma profile. 3. Fentanyl 37 mcg daily with a patch of 25 and a patch of 12 mcg to be given every three days. 4. Continue Lyrica. 5. Patient is to contact us for any new concerns or complaints. MTDD
== END 2018-01-03 ==
LOC: ONC 08:18
PROVIDERS: ATTEND Internal Medicine Hematology
DX: C88.0 Waldenstrom macroglobulinemia (principal); R04.2 Hemoptysis; G62.9 Polyneuropathy, unspecified; M10.9 Gout, unspecified; I10 Essential (primary) hypertension; K21.9 Gastro-esophageal reflux disease without esophagitis; K22.70 Barrett's esophagus without dysplasia; F41.9 Anxiety disorder, unspecified; F17.220 Nicotine dependence, chewing tobacco, uncomplicated; D75.1 Secondary polycythemia; R91.1 Solitary pulmonary nodule
CPT/HCPCS: 36415; 82232; 83615; 83883; 84550; 85025; 86334; 96367; 96375; 96413; 96415; 96523; J1100; J1642; J7030; J7040; J9310; 82040; 82247; 82310; 82374; 82435; 82565; 82947; 84075; 84132; 84155; 84295; 84450; 84460; 84520

== ENCOUNTER → 2018-03-27 | Outpatient (CLI) | payer MEDICARE, OTHER ==
[~2018-03-27] MED LIST changes: -ACETAMINOPHEN 325 MG TAB PO PRN; -ALTEPLASE RECOMB 2 MG VIAL IVP PRN; -DEXTROSE 5%(*) 100 ML BAG 100 ML IVPB PRN; -HYDR-4308 PO; -HYDR-4309 PO; +HYDR-653 PO; +HYDR-654 PO; -LIDOCAINE/SOD BICARB 8.4% SYR ID PRN; -NS(*) 0.9% 100 ML BAG 100 ML IVPB PRN; -NS(*) 0.9% 500 ML BAG 500 ML IV PRN; -RITUXIMAB IV ONE; +TES5T; -WATER FOR INJ,STERILE 20 ML IVP PRN; -[UNRECOGNIZED DRUG - OTHER] IV ONE; -diphenhydrAMINE 25 MG CAP PO PRN
--- NOTE | 2018-03-27 08:28 | RADIOLOGY IMAGING REPORT ---
FACILITY: [facility] PATIENT NAME: Bernardo Miller : 1950 MR: [id number] V: [id number] EXAM DATE: ORDERING PHYSICIAN: BRIAN ALBERTS TECHNOLOGIST: Location: [facility] Patient: Bernardo Miller : 1950 Visit/Account:[id number] Date of Sevice: 03/27/2018 CHEST PA AND LAT Indication: Hemoptysis Comparison: Chest x-ray 08/15/2016. Findings: Lungs: Clear. Mediastinum/pulmonary vasculature: Heart size and pulmonary vasculature are normal. Bones/soft tissues: Moderate thoracic spondylosis is seen. There is a right internal jugular portaca theter with its tip in good position in the midsuperior vena cava. IMPRESSION: Clear lungs. Report Dictated By: Seng Chaudhry at 03/27/2018 8:22 AM Report E-Signed By: Seng Chaudhry at 03/27/2018 8:23 AM WSN:[email or web address]
== END ==
LOC: RAD 07:55
PROVIDERS: ATTEND Family Medicine
DX: R04.2 Hemoptysis (principal)
CPT/HCPCS: 71046

== ENCOUNTER 2018-04-06 08:22 | Outpatient (RCR) | payer MEDICARE, OTHER ==
[2018-01-12] MEDS: HEPARIN FLSH (PORT) 500 UN/5ML IVP PRN (08:20)
[2018-01-12 08:34] VITALS: BP 116/69
[2018-02-02 08:13] VITALS: BP 126/76
[2018-02-02 08:35] VITALS: BP 133/83
[2018-02-02] MEDS: HEPARIN FLSH (PORT) 500 UN/5ML IVP PRN (08:35)
[2018-02-02 08:44] LABS: PLATELET COUNT, AUTOMATED 187 K/uL (150-450)
[2018-02-09 08:28] VITALS: BP 120/81
[2018-02-09] MEDS: DEXAMETHASONE SOD PHOS 10MG/ML IVP PRN (08:56)
[2018-02-09] MEDS: NS(*) 0.9% 500 ML BAG 500 ML IV PRN (08:56)
[2018-02-09] MEDS: HEPARIN FLSH (PORT) 500 UN/5ML IVP PRN (12:30)
[2018-03-08] MEDS: HEPARIN FLSH (PORT) 500 UN/5ML IVP PRN (08:11)
[2018-03-08 08:12] VITALS: BP 130/85
--- NOTE | 2018-03-08 20:23 | ONCOLOGY FOLLOW UP NOTE ---
EVENT DATE: March 08, 2018 DIAGNOSES 1. IgM paraproteinemia, highly suspicious for Waldenstrom macroglobulinemia. 2. 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 3. Pain due to neuropathy. CHIEF COMPLAINT The patient is here today for followup of his Waldenstrom macroglobulinemia, on treatment with rituximab. ONCOLOGY HISTORY The patient is a 67-year-old male who was followed in the past for erythrocytosis, treated with phlebotomies, and his counts normalized. He presented recently with worsening neuropathy of the right lower extremity. He has been treated for gout with allopurinol and for the neuropathy with gabapentin. He saw a neurologist who diagnosed him with neuropathy, and during his evaluation for neuropathy, the patient was found to have 0.6 g/dL IgM lambda light chain specificity of monoclonal protein. He was also found to have serum IgM level of 751. Patient has been evaluated by Dr. Cornejo who requested a bone marrow test which was done on August 20, 2014, and reports the bone marrow was hypercellular for age, 50% to 75% with trilineage hematopoiesis with maturation, and mild dyspneic cardiopoiesis. There was no evidence of bone marrow involvement by lymphoplasmacytic lymphoma. His peripheral blood did reveal the presence of rare circulating plasmacytoid and large granular lymphocytes. No flow cytometry, FISH, cytogenetic, or molecular studies done from the bone marrow. CT chest, abdomen, and pelvis done on August 18, 2014, showed normal- sized spleen, normal-appearing lymph nodes in the chest, abdomen, and pelvis, with right inguinal hernia containing omentum, with small, hypodense lesion within the left lobe of the liver medial segment, most likely representing a focal fatty infiltration. On August 15, 2014, patient had beta 2-microglobulin which was normal at 1.7. Serum viscosity was normal at 1.29. IgG was normal at 843. IgA was normal at 123. IgM was high at 551. Hepatitis surface antigen was negative. Hepatitis B core IgM was also negative. Hepatitis A antibody IgM was negative. Hepatitis C antibody by RICKY was negative. Hepatitis B core was negative. Uric acid was normal at 4.3. Cold agglutinin was also negative. Skeletal bone survey done on August 25, 2014, came back inconclusive. A 24-hour urine showed normal kappa free light chain at 1.29 and lambda free light chain at 1.92. Beta-2 microglobulin was normal at 1.9. IgG was normal at 826, IgA was normal at 130, IgM was high at 490. Uric acid was normal at 4.4. The patient has been evaluated at the [facility] under the care of Dr. Nick Mejia. The patient had sural nerve biopsy which came back negative. He has also a good bone marrow aspiration biopsy, which was also negative, but molecular studies showed mutation detected at C.794T more than C of NYD88 mutation, suggestive of Waldenstrom macroglobulinemia. The patient started treatment with ibrutinib 420 mg daily in November 2014, which was stopped in July 2015 because of progression of his disease. The patient started treatment with CARD chemotherapy with carfilzomib, rituximab and dexamethasone on May 14, 2015. The patient is here today for his cycle #6 of CARD chemotherapy for his Waldenstrom macroglobulinemia. His general condition is improving gradually. His neuropathic pain resolved completely, but on decreasing the dose of fentanyl patch from 25 to 12 mcg q.72 hours, his pain restarted becoming more annoying to him. Currently with 25 mcg, the patient is free of pain and free of any complaints currently. 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 The patient started treatment with cyclophosphamide with rituximab and dexamethasone on September 25, 2015. The patient quit taking cyclophosphamide because of the side effect, and he is maintained on rituximab and dexamethasone with stabilization of his IgM level and monoclonal protein. HISTORY OF PRESENT ILLNESS Patient is here today for followup of his Waldenstrom macroglobulinemia on treatment with rituximab. He is doing fine currently. He is complaining of worsening pain from the neuropathy in his left leg and left foot, and he is also weak, tired, and fatigued, but other than that, he is stable. PAST MEDICAL HISTORY 1. Hypertension. 2. Hypertriglyceridemia. 3. Gout. 4. Gouty arthritis. 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 PAST SURGICAL HISTORY 1. Cholecystectomy. 2. Appendectomy. 3. Bilateral hip arthroplasties. 4. Knee arthroscopy times two. 5. Right foot surgery. FAMILY HISTORY Father had chronic leukemia, most probably CLL. SOCIAL HISTORY Patient is . He has two daughters. 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 He drinks alcohol socially. He chews tobacco, but denies smoking tobacco and denies any abuse of illicit drugs. CURRENT MEDICATIONS 1. Amitriptyline 50 mg at bedtime. 2. Fentanyl patch 25 mcg q.72 hours. 3. Ambien 12.5 mg at bedtime p.r.n. 4. Lyrica 50 mg two tablets at bedtime. 5. Ativan 1 mg q.4-6 hours p.r.n. for anxiety. 6. Lipitor 80 mg at bedtime. 7. Vitamin D3 at 50,000 units orally daily. 8. CoQ10 at 200 mg daily. ALLERGIES No known drug allergies. REVIEW OF SYSTEMS CONSTITUTIONAL: No appetite or weight change. No fever, chills, or sweating. No recent infection. HEENT: Ears: No tinnitus or hearing problem. Nose: No nasal discharge or epistaxis. Throat: No sore throat or mouth ulcers. Eyes: No diplopia or visual changes. RESPIRATORY: No shortness of breath. No cough, expectoration, or hemoptysis. CARDIOVASCULAR: No chest pain, orthopnea, or paroxysmal nocturnal dyspnea (PND). No edema. No palpitations. GASTROINTESTINAL: No nausea or vomiting. No diarrhea or constipation. No change in bowel movements. No heartburn or swallowing difficulties. No abdominal pain. No jaundice. No hematemesis, melena, or rectal bleeding. GENITOURINARY: No hematuria or dysuria. MUSCULOSKELETAL: No pain in the muscles, joints, or bones. NEUROLOGICAL: Patient has occasional headache. He has also pain in the left leg and foot from neuropathy which is getting worse lately. No convulsions. HEMATOLOGIC/LYMPHATIC: No bleeding or easy bruising. He is weak, tired, and fatigued. No enlarged lymph nodes. SKIN: No skin rash or lumps. PSYCHIATRIC: No anxiety or depression. PHYSICAL EXAMINATION GENERAL: Looks stable. Well developed, well nourished, and in no acute distress. VITAL SIGNS: Blood pressure 130/85, pulse 111 per minute, respirations 17 per minute, temperature 97.2, pulse ox 91% on room air. HEENT: Head: Atraumatic. No sinus tenderness to palpation. Eyes: No icterus or conjunctivitis. Mouth and throat: No oral thrush or mucositis. NECK: Supple. No cervical or supraclavicular lymphadenopathy. LUNGS: Clear to auscultation and percussion bilaterally. HEART: Regular rate and rhythm. No gallops, murmurs, clicks, or rubs. ABDOMEN: Soft and lax. No tenderness. No hepatosplenomegaly. No masses. EXTREMITIES: No cyanosis, clubbing, or edema. LYMPHATICS: No peripheral lymphadenopathy. NEUROLOGICAL: Conscious, alert, and oriented times three. No focal motor or sensory deficits. PSYCHIATRIC: Mood and affect appear normal. SKIN: No skin rash, bruise, or purpuric eruption. DIAGNOSTIC DATA CBC showed white count 7.8, hemoglobin 16.4, hematocrit 48.4, platelets 187,000. Chem panel totally normal except total protein 6 and total bilirubin 1.4. Myeloma profile showed normal beta-2 microglobulin at 1.7. [place] free light chain is 0.14, and lambda free light chain is 0.19, which are low. IgG is low at 264. IgA is low at 26. IgM is normal at 37. It is actually towards the low normal. Immunoelectrophoresis showed hypogammaglobulinemia and a faint band in the IgM lambda suggestive of a specific immune response or an early monoclonal protein. ASSESSMENT 1. Waldenstrom macroglobulinemia with IgM paraproteinemia with IgM lambda monoclonal protein. Patient currently on treatment with rituximab every two months. He is doing fine currently, but with episodes of worsening pain in his left leg and left foot from previous neuropathy. His serum protein immunoelectrophoresis showed a faint band in the IgM lambda, which is stable. It could be due to early minimal response versus early monoclonal protein. IgM level currently is 37, which is stable. Patient initially treated with ibrutinib with initial response, and on progression, he started treatment with CaRD chemotherapy with Kyprolis, rituximab, and dexamethasone between May 14, 2015, through August 28, 2015. The patient received six courses with response, but he developed Kyprolis-induced cardiomyopathy, so the treatment was stopped after that. He received after that treatment with rituximab, dexamethasone, and cyclophosphamide, but stopped cyclophosphamide because of the side effect. He has been maintained after that on rituximab and dexamethasone with stabilization of his monoclonal protein, and currently, he has a faint band in the IgM lambda with normal IgM level. I am planning to continue rituximab every two months. I will see him again in two months with CBC, chemistry panel, LDH, uric acid, and myeloma profile. 2. Neuropathy due to Waldenstrom macroglobulinemia, currently on Lyrica with episodes of worsening pain, so patient is using fentanyl patch and [place] for that. He is currently on 37 mcg patch every three days and [place] p.r.n. every four hours. If his control is not good, I am planning to pump up the patch again to 50 mcg every 72 hours. 3. History of shingles of the head and neck, currently on prophylactic Valtrex. 4. Gout with gouty arthritis, on allopurinol. 5. Hypertension, on treatment. 6. Gastroesophageal reflux disease, on Protonix. PLAN 1. Rituximab as per schedule. 2. Patient to return in two months with CBC, chem panel, LDH, uric acid, and myeloma profile. 3. Fentanyl 37 mcg daily every 72 hours. 4. [place] 5/325 mg q.4 hours p.r.n. 5. Continue Lyrica. 6. Patient is to contact us for any new concerns or complaints. MTDD
[2018-03-30 08:25] VITALS: BP 130/90
[2018-03-30 08:43] LABS: PLATELET COUNT, AUTOMATED 216 K/uL (150-450)
[2018-03-30] MEDS: HEPARIN FLSH (PORT) 500 UN/5ML IVP PRN (09:55)
[~2018-04-06] VITALS: Ht 171.4 cm; Wt 105.4 kg
[~2018-04-06 08:22] MED LIST changes: +ACETAMINOPHEN 325 MG TAB PO PRN; +ALTEPLASE RECOMB 2 MG VIAL IVP PRN; +DEXTROSE 5%(*) 100 ML BAG 100 ML IVPB PRN; +INFLUENZA VIRUS VAC 0.5ML SYR IM ONLY ONE; +LIDOCAINE/SOD BICARB 8.4% SYR ID PRN; +NS(*) 0.9% 100 ML BAG 100 ML IVPB PRN; +RITUXIMAB IV ONE; +WATER FOR INJ,STERILE 20 ML IVP PRN; +[UNRECOGNIZED DRUG - OTHER] IV ONE; +diphenhydrAMINE 25 MG CAP PO PRN
[2018-04-06] MEDS: NS(*) 0.9% 500 ML BAG 500 ML IV PRN (08:35)
[2018-04-06 08:36] VITALS: BP 127/86
[2018-04-06] MEDS ORDERED: RITUXIMAB IV ONE (08:45)
[2018-04-06] MEDS ORDERED: [UNRECOGNIZED DRUG - OTHER] IV ONE (08:45)
[2018-04-06] MEDS: DEXAMETHASONE SOD PHOS 10MG/ML IVP PRN (09:09)
[2018-04-06 12:42] VITALS: BP 112/65
[2018-04-06] MEDS: HEPARIN FLSH (PORT) 500 UN/5ML IVP PRN (12:44)
--- NOTE | 2018-04-07 09:26 | [facility] ONCOLOGY NOTE ---
EVENT DATE: April 06, 2018 DIAGNOSES 1. IgM paraproteinemia, highly suspicious for Waldenstrom macroglobulinemia. 2. 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 3. Pain due to neuropathy. CHIEF COMPLAINT The patient is here today for followup of his Waldenstrom macroglobulinemia, on treatment with rituximab. ONCOLOGY HISTORY The patient is a 67-year-old male who was followed in the past for erythrocytosis, treated with phlebotomies, and his counts normalized. He presented recently with worsening neuropathy of the right lower extremity. He has been treated for gout with allopurinol and for the neuropathy with gabapentin. He saw a neurologist who diagnosed him with neuropathy, and during his evaluation for neuropathy, the patient was found to have 0.6 g/dL IgM lambda light chain specificity of monoclonal protein. He was also found to have serum IgM level of 751. Patient has been evaluated by Dr. Cornejo who requested a bone marrow test which was done on August 20, 2014, and reports the bone marrow was hypercellular for age, 50% to 75% with trilineage hematopoiesis with maturation, and mild dyspneic cardiopoiesis. There was no evidence of bone marrow involvement by lymphoplasmacytic lymphoma. His peripheral blood did reveal the presence of rare circulating plasmacytoid and large granular lymphocytes. No flow cytometry, FISH, cytogenetic, or molecular studies done from the bone marrow. CT chest, abdomen, and pelvis done on August 18, 2014, showed normal- sized spleen, normal-appearing lymph nodes in the chest, abdomen, and pelvis, with right inguinal hernia containing omentum, with small, hypodense lesion within the left lobe of the liver medial segment, most likely representing a focal fatty infiltration. On August 15, 2014, patient had beta 2-microglobulin which was normal at 1.7. Serum viscosity was normal at 1.29. IgG was normal at 843. IgA was normal at 123. IgM was high at 551. Hepatitis surface antigen was negative. Hepatitis B core IgM was also negative. Hepatitis A antibody IgM was negative. Hepatitis C antibody by RICKY was negative. Hepatitis B core was negative. Uric acid was normal at 4.3. Cold agglutinin was also negative. Skeletal bone survey done on August 25, 2014, came back inconclusive. A 24-hour urine showed normal kappa free light chain at 1.29 and lambda free light chain at 1.92. Beta-2 microglobulin was normal at 1.9. IgG was normal at 826, IgA was normal at 130, IgM was high at 490. Uric acid was normal at 4.4. The patient has been evaluated at the [facility] under the care of Dr. Nick Mejia. The patient had sural nerve biopsy which came back negative. He has also a good bone marrow aspiration biopsy, which was also negative, but molecular studies showed mutation detected at C.794T more than C of NYD88 mutation, suggestive of Waldenstrom macroglobulinemia. The patient started treatment with ibrutinib 420 mg daily in November 2014, which was stopped in July 2015 because of progression of his disease. The patient started treatment with CARD chemotherapy with carfilzomib, rituximab and dexamethasone on May 14, 2015. The patient is here today for his cycle #6 of CARD chemotherapy for his Waldenstrom macroglobulinemia. His general condition is improving gradually. His neuropathic pain resolved completely, but on decreasing the dose of fentanyl patch from 25 to 12 mcg q.72 hours, his pain restarted becoming more annoying to him. Currently with 25 mcg, the patient is free of pain and free of any complaints currently. 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 The patient started treatment with cyclophosphamide with rituximab and dexamethasone on September 25, 2015. The patient quit taking cyclophosphamide because of the side effect, and he is maintained on rituximab and dexamethasone with stabilization of his IgM level and monoclonal protein. HISTORY OF PRESENT ILLNESS Patient is here today for followup of his Waldenstrom macroglobulinemia, on treatment with rituximab. He is doing fine currently except for cough with hemoptysis, which is getting worse lately. He had a chest x-ray done on March 27, 2018, which showed clear lungs. He is complaining also of pain in his left leg, under better control with fentanyl 50 micrograms every 72 hours. He is weak, tired and fatigued. PAST MEDICAL HISTORY 1. Hypertension. 2. Hypertriglyceridemia. 3. Gout. 4. Gouty arthritis. 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 PAST SURGICAL HISTORY 1. Cholecystectomy. 2. Appendectomy. 3. Bilateral hip arthroplasties. 4. Knee arthroscopy times two. 5. Right foot surgery. FAMILY HISTORY Father had chronic leukemia, most probably CLL. SOCIAL HISTORY Patient is . He has two daughters. 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 He drinks alcohol socially. He chews tobacco, but denies smoking tobacco and denies any abuse of illicit drugs. CURRENT MEDICATIONS 1. Amitriptyline 50 mg at bedtime. 2. Fentanyl patch 25 mcg q.72 hours. 3. Ambien 12.5 mg at bedtime p.r.n. 4. Lyrica 50 mg two tablets at bedtime. 5. Ativan 1 mg q.4-6 hours p.r.n. for anxiety. 6. Lipitor 80 mg at bedtime. 7. Vitamin D3 at 50,000 units orally daily. 8. CoQ10 at 200 mg daily. ALLERGIES No known drug allergies. REVIEW OF SYSTEMS CONSTITUTIONAL: No appetite or weight change. No fever, chills, or sweating. No recent infection. HEENT: Ears: No tinnitus or hearing problem. Nose: No nasal discharge or epistaxis. Throat: No sore throat or mouth ulcers. Eyes: No diplopia or visual changes. RESPIRATORY: Patient has cough with hemoptysis. CARDIOVASCULAR: No chest pain, orthopnea, or paroxysmal nocturnal dyspnea (PND). No edema. No palpitations. GASTROINTESTINAL: No nausea or vomiting. No diarrhea or constipation. No change in bowel movements. No heartburn or swallowing difficulties. No abdominal pain. No jaundice. No hematemesis, melena, or rectal bleeding. GENITOURINARY: No hematuria or dysuria. MUSCULOSKELETAL: He has pain in the left leg. NEUROLOGICAL: Patient has occasional headache. He has also pain in the left leg and foot from neuropathy which is getting worse lately. No convulsions. HEMATOLOGIC/LYMPHATIC: He is weak, tired and fatigued. SKIN: No skin rash or lumps. PSYCHIATRIC: No anxiety or depression. PHYSICAL EXAMINATION GENERAL: Looks stable. Well developed, well nourished, and in no acute distress. VITAL SIGNS: Blood pressure 126/78, pulse 86 per minute, respirations 16 per minute, temperature 97.4, pulse ox 91% on room air. HEENT: Head: Atraumatic. No sinus tenderness to palpation. Eyes: No icterus or conjunctivitis. Mouth and throat: No oral thrush or mucositis. NECK: Supple. No cervical or supraclavicular lymphadenopathy. LUNGS: Clear to auscultation and percussion bilaterally. HEART: Regular rate and rhythm. No gallops, murmurs, clicks, or rubs. ABDOMEN: Soft and lax. No tenderness. No hepatosplenomegaly. No masses. EXTREMITIES: No cyanosis, clubbing, or edema. LYMPHATICS: No peripheral lymphadenopathy. NEUROLOGICAL: Conscious, alert, and oriented times three. No focal motor or sensory deficits. PSYCHIATRIC: Mood and affect appear normal. SKIN: No skin rash, bruise, or purpuric eruption. DIAGNOSTIC DATA CBC showed white count 6.2, hemoglobin 16, hematocrit 46.3, platelets 216,000. Chem panel totally normal except total protein 6.2. Chest x-ray done on March 27, 2018 showed clear lungs. Beta-2 microglobulin is normal at 2. [place] free light chain is low at 0.23. Lambda free light chain is low at 0.19. [place] to lambda free light chain ratio is normal at 1.1. IgG level is low at 262. IgA is low at 27. IgM is normal at 36. Immunoelectrophoresis showed a faint band in the IgM lambda suggestive of specific immune response or an early monoclonal protein. ASSESSMENT 1. Waldenstrom macroglobulinemia with IgM paraproteinemia with IgM lambda monoclonal protein. Patient currently on treatment with rituximab every two months. He is doing fine currently with episodes of worsening pain in the left leg and left foot for which patient is receiving currently fentanyl 75 micrograms every 72 hours with better control. Serum protein immunoelectrophoresis showed a faint band in the IgM lambda, which is stable. IgM level is normal and stable at 36. Patient initially treated with ibrutinib with initial response and on progression he started treatment with CaRD chemotherapy with Kyprolis, rituximab, and dexamethasone between May 14, 2015 through August 28, 2015. The patient received six courses with response but he developed Kyprolis-induced cardiomyopathy so the treatment was stopped after that. He received after that treatment with rituximab, dexamethasone, and cyclophosphamide but he stopped cyclophosphamide because of the side effect. He was maintained after that on rituximab with stabilization of his monoclonal protein, which showed only a faint band in IgM lambda currently. I am planning to continue rituximab every two months as per schedule. I will see him again in two months with CBC, chem panel, LDH, uric acid, and myeloma profile. 2. Neuropathy due to Waldenstrom macroglobulinemia, currently on Lyrica with episodes of worsening pain for which patient is currently receiving fentanyl 50 micrograms with better control of his pain. 3. Insomnia. We will continue Ambien. 4. History of shingles of the head and neck, currently on prophylactic Valtrex. 5. Gout with gouty arthritis, on allopurinol. 6. Gastroesophageal reflux disease, on Protonix. 7. Hemoptysis. Patient had a chest x-ray done on March 27, 2018 which showed clear lungs. I am planning to get a CT chest and patient has an appointment with Dr. Tyson on April 16. PLAN 1. Rituximab as per schedule. 2. Patient to return in two months with CBC, chem panel, LDH, uric acid, and myeloma profile. 3. Fentanyl 50 mcg every 72 hours. 4. [place] 5/325 mg every fours hours p.r.n. 5. Ambien p.r.n. for insomnia. 6. CT chest with contrast. 7. Continue Lyrica. 8. Patient is to contact us for any new concerns or complaints. MTDD
== END 2018-04-11 ==
LOC: ONC 08:22
PROVIDERS: ATTEND Internal Medicine Hematology
DX: C88.0 Waldenstrom macroglobulinemia (principal); Z23 Encounter for immunization; M10.9 Gout, unspecified; K21.9 Gastro-esophageal reflux disease without esophagitis; I10 Essential (primary) hypertension; G62.9 Polyneuropathy, unspecified; Z86.19 Personal history of other infectious and parasitic diseases; F17.220 Nicotine dependence, chewing tobacco, uncomplicated; R04.2 Hemoptysis
CPT/HCPCS: 36591; 82232; 83615; 83883; 84550; 85025; 86334; 90471; 96374; 96375; 96413; 96415; 96523; A9270; G0463; J1100; J1642; J2997; J7030; J7040; J9310; Q0163; Q2037; 36593; 82040; 82247; 82310; 82374; 82435; 82565; 82947; 84075; 84132; 84155; 84295; 84450; 84460; 84520; 90674; 99212

== ENCOUNTER 2018-04-30 00:44 | Day surgery (SDC) | payer MEDICARE, OTHER ==
[~2018-04-30] VITALS: Ht 175.3 cm; Wt 105.2 kg
[~2018-04-30 00:44] MED LIST changes: -ACETAMINOPHEN 325 MG TAB PO PRN; -ALTEPLASE RECOMB 2 MG VIAL IVP PRN; -DEXTROSE 5%(*) 100 ML BAG 100 ML IVPB PRN; -INFLUENZA VIRUS VAC 0.5ML SYR IM ONLY ONE; -LIDOCAINE/SOD BICARB 8.4% SYR ID PRN; -NS(*) 0.9% 100 ML BAG 100 ML IVPB PRN; -RITUXIMAB IV ONE; -WATER FOR INJ,STERILE 20 ML IVP PRN; -[UNRECOGNIZED DRUG - OTHER] IV ONE; -diphenhydrAMINE 25 MG CAP PO PRN
[2018-04-30 06:14] VITALS: BP 120/77
[2018-04-30] MEDS ORDERED: NORMOSOL R SOLN(*) 1000 ML BAG 1,000 ML IV PRN (06:30)
[2018-04-30] MEDS ORDERED: LIDOCAINE/SOD BICARB 8.4% SYR ID ONE (06:30)
[2018-04-30] MEDS ORDERED: MIDAZOLAM 2 MG/2 ML VIAL IVP PRN (06:30)
--- NOTE | 2018-04-30 06:38 | EKG ---
FACILITY: [facility] PATIENT NAME: ERIK CARMICHAEL : [id number] MR: [id number] V: [id number] EXAM DATE: ORDERING PHYSICIAN: VIKTOR JOHN TECHNOLOGIST: NIGEL Test Reason : PRE-OP Blood Pressure : / mmHG Vent. Rate : 065 BPM Atrial Rate : 065 BPM P-R Int : 238 ms QRS Dur : 094 ms QT Int : 390 ms P-R-T Axes : 050 015 043 degrees QTc Int : 405 ms Sinus rhythm with 1st degree AV block Otherwise normal ECG When compared with ECG of 31-AUG-2015 09:55, FL interval has increased Minimal criteria for Inferior infarct are no longer present T wave inversion no longer evident in Anterior leads QT has shortened Confirmed by YANET LE ([id number]) on 04/30/2018 6:45:51 AM Referred By: Confirmed By:YANET LE
[2018-04-30] MEDS ORDERED: MINERAL OIL LIGHT 10 ML VIAL ONE (06:48)
[2018-04-30] MEDS ORDERED: fentaNYL CITR 100 MCG/2 ML AMP ONE (07:11)
[2018-04-30] MEDS ORDERED: DEXAMETHASONE SOD PHOS 10MG/ML ONE (07:12)
[2018-04-30] MEDS ORDERED: ONDANSETRON 4 MG/2 ML VIAL ONE (07:12)
[2018-04-30] MEDS ORDERED: LIDOCAINE MPF 1% 5 ML VIAL ONE (07:12)
[2018-04-30] MEDS ORDERED: PROPOFOL EMUL(*) 10MG/ML 20 ML 20 ML ONE (07:12)
[2018-04-30] MEDS ORDERED: SUGAMMADEX SOD 500 MG/5 ML SDV ONE (07:14)
[2018-04-30] MEDS ORDERED: FLUT1DIS28 IH (08:02)
--- NOTE | 2018-04-30 08:07 | Short(Outpt) Discharge Summary ---
Discharge Summary Reason for Hosp/Final Diag: (1) Hemoptysis Status: Chronic Hospital Course & Plan: Bronchoscopy with BAL completed without problems. (2) Waldenstrom macroglobulinemia Status: Chronic Departure Discharge to: Home, Self Care Discharge Instructions Home Meds Active Scripts Fluticasone/Salmeterol (ADVAIR 250-50 DISKUS) 1 Each Disk.w.dev, 1 PUFF IH Q12H, #2 DISK 3 Refills Prov:YANET CASTILLO MD 04/30/18 Pregabalin (LYRICA) 200 Mg Cap, 200 MG PO BID, #60 CAP 2 Refills Prov:JOSE GARCIA PICTURE FRAMES INSPECTOR-BC, ONC 06/02/17 Zolpidem Tartrate (ZOLPIDEM TARTRATE) 10 Mg Tablet, 1 TAB PO QHS, #30 TAB 4 Refills Prov:JOSE GARCIA PICTURE FRAMES INSPECTOR-BC, ONC 03/30/17 Reported Medications Duloxetine HCl (Duloxetine HCl) 60 Mg Capsule.dr, 120 MG Q AM for Anxiety 10/12/17 Dexamethasone (Decadron) 4 Mg Tablet 10/11/17 Cholecalciferol (Vitamin D3) (VITAMIN D3) 5,000 Unit Tablet, 5000 UNIT PO 10/11/17 Fentanyl (Fentanyl) 1 Each Patch.td72, 50 MCG Q3D 10/11/17 Multivitamin (MULTI VITAMIN DAILY) 1 Each Tablet, 1 EACH PO QDAY 10/09/17 Tamsulosin Hcl (FLOMAX) 0.4 Mg Cap.er.24h, 0.4 MG PO DAILY, CAP 05/06/16 Pantoprazole Sodium (PANTOPRAZOLE SODIUM) 40 Mg Tablet.dr, 40 MG PO QODAY, TAB.SR 05/06/16 Atorvastatin (LIPITOR) 80 Mg Tab, 1 TAB PO QDAY, TAB 04/11/16 Metoprolol Succinate (METOPROLOL SUCCINATE) 50 Mg Tab.er.24h, 1 TAB PO QAM, TAB 04/11/16 Aspirin (ASPIRIN) 81 Mg Tab.chew, 81 MG PO QDAY, TAB.CHEW 08/31/15 Ubidecarenone (CO Q-10) 200 Mg Capsule, 200 MG PO QDAY, CAPSULE 08/15/14 Lewis-3 Fatty Acids (FISH OIL) 300 Mg Capsule, 300 MG PO BID, CAPSULE 08/15/14 Allopurinol (ALLOPURINOL) 100 Mg Tablet, 300 MG PO QDAY, TAB 08/15/14 Diet: Regular Activity: As Tolerated Special Instructions: I didn't find anything suspicious for cancer in your airways. I didn't find anything that was actively bleeding but your airways were mildly inflamed. I am prescribing you an inhaler to see if this improves your symptoms. You inhale 1 puff twice every day. I will check and see how you're doing when I see you back in my office. My office will call you later this week to schedule a follow up appointment. YANET CASTILLO MD Apr 30, 2018 08:07
[2018-04-30] MEDS ORDERED: ALBUTEROL/IPRATROPIUM 3 ML NEB NEB ONE (08:15)
[2018-04-30 08:45] VITALS: BP 92/70
[2018-04-30 09:15] VITALS: BP 105/61
[2018-04-30 09:37] VITALS: BP 91/60
[2018-04-30 09:40] VITALS: BP 94/65
[2018-04-30 09:49] VITALS: BP 104/87
--- NOTE | 2018-04-30 12:09 | NUR ---
0845- PT. RECEIVED FROM PACU VIA STRETCHER WITH THE SIDERAILS UP. PT. TOLERATED WELL. SBAR REPORT FROM BLAKE AJ. PT. STATES THAT HE IS READY TO GO HOME BUT HE IS STILL ON 3LPM NC AND HIS B/P IS A LITTLE LOW. 0910- PT. GIVEN IS. 0915- PT. ANXIOUS TO LEAVE THE HOSPITAL BUT STILL NEEDING 3LPM NC. 0920- DR. PERKINS CONSULTED AND IT IS DECIDED TO SEND THE PT. HOME ON 4LPM O2 UNTIL HE FOLLOWS UP WITH HIS PCP. 0930- RA TEST AT 78% 0937- ORTHOSTATIC PREFORMED. 0941- PT. UP AND TO THE BATHROOM. 0949- BLOOD PRESSURE CHECKED AGAIN AND PULSE OX CHECKED 1000- YULI CALLED TO BRING O2. DR. NEAL'S OFFICE ATTEMPTED TO CALL BUT THE OFFICE CLOSED FOR THE DAY. 1020- LINCARE HERE. 1030- TOOK PT. IV OUT AND PRESSURE DRESSING APPLIED. 1040- PT. WALKED OUT OT VEHICLE ACCOMPANIED BY LUCY AJ. PT. TOLERATED WALK FINE WITH NO PROBLEMS.
== END 2018-04-30 08:50 | disposition home or self-care (01) ==
LOC: OR 00:44
PROVIDERS: ATTEND Surgery
DX: R04.2 Hemoptysis (principal); C88.0 Waldenstrom macroglobulinemia; R04.0 Epistaxis
CPT/HCPCS: 31624; 88104; 93005; 94640; J1100; J2001; J2405; J2704; J3010; J7620

== ENCOUNTER → 2018-05-30 | Outpatient (CLI) | payer MEDICARE, OTHER ==
[~2018-05-30] MED LIST changes: +FLUT1DIS28 IH
--- NOTE | 2018-05-30 15:16 | RADIOLOGY IMAGING REPORT ---
[place] [facility] [place] Bernardo Miller : 1950 MR: [id number] V: [id number] EXAM DATE: ORDERING PHYSICIAN: YANET CASTILLO TECHNOLOGIST: [facility] Patient: Bernardo Miller : 1950 Visit/Account:[id number] Date of Sevice: 05/30/2018 EXAMINATION: CT of the Paranasal Sinuses HISTORY: Chronic sinusitis. Hemoptysis. TECHNIQUE: Contiguous axial images were obtained through the paranasal sinuses without intravenous c ontrast administration. Coronal and sagittal reformatted images were obtained from the axial source d xiomara. One of the following dose optimization techniques was utilized in the performance of this exam: Autom ated exposure control; adjustment of the mA and/or kV according to the patient's size; or use of an i terative reconstruction technique. Specific details can be referenced in the facility's radiology C T exam operational policy. COMPARISON: Brain MRI dated 10/17/2016. Head CT dated 03/30/2016. FINDINGS: Maxillary sinuses: Mild mucosal thickening, right worse than left. Frontal sinuses: The left frontal sinus is dominant. Mild mucosal thickening. Ethmoid air cells: Mild mucosal thickening. Sphenoid sinuses: Mild mucosal thickening. Ostiomeatal units: Patent. Nasal septum / nasal cavity: Leftward nasal septal deviation and spurring. Orbits: Negative. Visualized intracranial contents/soft tissues: Negative. TMJs: Negative. IMPRESSION: 1. Mild mucosal thickening in the paranasal sinuses with no air-fluid levels. 2. Leftward nasal septal deviation and spurring. Report Dictated By: Kel Santos MD at 05/30/2018 3:06 PM Report E-Signed By: Kel Santos MD at 05/30/2018 3:12 PM WSN:[id number]
== END ==
LOC: CT 05-23 00:30
PROVIDERS: ATTEND Surgery
DX: J34.2 Deviated nasal septum (principal); J32.9 Chronic sinusitis, unspecified
CPT/HCPCS: 70486

== ENCOUNTER 2018-06-08 08:27 | Outpatient (RCR) | payer MEDICARE, OTHER ==
[2018-04-12 10:07] VITALS: BP 130/90
[2018-04-12] MEDS: HEPARIN FLSH (PORT) 500 UN/5ML IVP PRN (12:06)
--- NOTE | 2018-04-12 15:59 | RADIOLOGY IMAGING REPORT ---
FACILITY: [facility] - [place] PATIENT NAME: Bernardo Miller : 1950 MR: [id number] V: [id number] EXAM DATE: ORDERING PHYSICIAN: SHOAIB ANDERSON TECHNOLOGIST: Location: [facility] [place] Patient: Bernardo Miller : 1950 Visit/Account:[id number] Date of Sevice: 04/12/2018 CHEST W CONTRAST History: Hemoptysis TECHNIQUE: Contiguous axial images were performed through the chest to the level of the adrenal gla nds following the administration of IV contrast. Coronal and sagittal reformatting was also perform ed.Dose Lowering Technique One of the following dose optimization techniques was utilized in the performance of this exam: Autom ated exposure control; adjustment of the mA and/or kV according to the patient's size; or use of an i terative reconstruction technique. Specific details can be referenced in the facility's radiology C T exam operational policy. Contrast: 75 mL Isovue-370 COMPARISON STUDIES: CT chest the 2017. Lungs / Pleura: The previously noted pulmonary nodule lateral aspect of the left upper lobe appears minimally decreased now measuring 7.3 mm as opposed to 8.5 mm previously no other pulmonary nodules are seen. The previously noted irregular area of airspace consolidation the posterior lateral aspect the right lower lobe appears less confluent with more of a groundglass appearance with peripheral se ptal thickening. Subtle groundglass opacities and peribronchial thickening is seen in the medial superior aspect of th e right lower lobe which is increased when compared the prior study. The previously noted patchy areas of consolidation in the posterior segment of the right upper lobe w ith tree-in-bud configuration appears less prominent. There is no evidence of pleural effusions Mediastinum/nodes: No pathologically enlarged mediastinal lymph nodes are seen. Incidentally noted is mild thickening of the upper thoracic esophagus Heart and vessels: There is an implanted right IJ port with the distal tip in superior vena cava. T here are mild coronary artery calcifications Musculoskeletal / Body wall: Stable sclerotic density seen in the posterior spinous process of T2. There are spondylotic changes of the thoracic spine Upper abdomen: There is a small hiatal hernia. There is a tiny focus of contrast enhancement along the posterior lateral dome of the liver is faintl y seen on the prior study and appears unchanged likely representing a perfusional variant. There is additional small focal area of enhancement along the anteromedial inferior right lobe of the liver wh ich may also represent a perfusional variant IMPRESSION: Previously noted pulmonary nodule lateral aspect the left upper lobe appears minimally decreased in s ize now measuring 7.3 as opposed 8.5 mm. Previous noted irregular area of consolidation the posterior lateral aspect right lower lobe appears less confluent with more groundglass appearance with peripheral septal thickening. This may represen t a resolving infectious/inflammatory process. Previous noted patchy areas of consolidation the posterior segment of the right upper lobe with tree- in-bud configuration also appears less prominent. Subtle groundglass opacities with peribronchial thickening in the medial superior aspect right lower lobe are increased and may represent scarring or infectious/inflammatory process. A tiny focus of contrast enhancement along the posterior lateral dome of the liver is faintly seen on the prior study appears unchanged in size and may represent a perfusional variant. An additional sm all focal area of enhancement along the anteromedial inferior right lobe the liver may also represent a perfusional variant. Depending upon the clinical findings if this is of strong clinical concern s hort-term interval follow-up CT or MR is recommended Report Dictated By: Sapna Ernandez MD at 04/12/2018 3:36 PM Report E-Signed By: Sapna Ernandez MD at 04/12/2018 3:54 PM YVESN:CAITLIN
--- NOTE | 2018-04-12 20:24 | ONCOLOGY FOLLOW UP NOTE ---
EVENT DATE: April 12, 2018 CHIEF COMPLAINT Followup for Waldenstrom macroglobulinemia and recent hemoptysis. HISTORY OF PRESENT ILLNESS Patient is a 67-year-old male who was seen today in followup. He has been receiving Rituxan on an every two-month basis, last given 04/06/18. He complains of recent hemoptysis. Chest x-ray on 03/27/18 showed clear lungs. He underwent CT of the chest today. He has a followup appointment with Dr. Tyson on 04/16/18 for possible endoscopy versus bronchoscopy. He generally feels poorly. He is very fatigued and sleeping during the day. His neuropathic pain is under fairly good control on Lyrica and an increased dose of fentanyl to 250 mcg patch q.72 hours. He denies any other new complaints. ONCOLOGY HISTORY The patient is a 67-year-old male who was followed in the past for erythrocytosis, treated with phlebotomies, and his counts normalized. He presented recently with worsening neuropathy of the right lower extremity. He has been treated for gout with allopurinol and for the neuropathy with gabapentin. He saw a neurologist who diagnosed him with neuropathy, and during his evaluation for neuropathy, the patient was found to have 0.6 g/dL IgM lambda light chain specificity of monoclonal protein. He was also found to have serum IgM level of 751. Patient has been evaluated by Dr. Cornejo who requested a bone marrow test which was done on August 20, 2014, and reports the bone marrow was hypercellular for age, 50% to 75% with trilineage hematopoiesis with maturation, and mild dyspneic cardiopoiesis. There was no evidence of bone marrow involvement by lymphoplasmacytic lymphoma. His peripheral blood did reveal the presence of rare circulating plasmacytoid and large granular lymphocytes. No flow cytometry, FISH, cytogenetic, or molecular studies done from the bone marrow. CT chest, abdomen, and pelvis done on August 18, 2014, showed normal- sized spleen, normal-appearing lymph nodes in the chest, abdomen, and pelvis, with right inguinal hernia containing omentum, with small, hypodense lesion within the left lobe of the liver medial segment, most likely representing a focal fatty infiltration. On August 15, 2014, patient had beta 2-microglobulin which was normal at 1.7. Serum viscosity was normal at 1.29. IgG was normal at 843. IgA was normal at 123. IgM was high at 551. Hepatitis surface antigen was negative. Hepatitis B core IgM was also negative. Hepatitis A antibody IgM was negative. Hepatitis C antibody by RICKY was negative. Hepatitis B core was negative. Uric acid was normal at 4.3. Cold agglutinin was also negative. Skeletal bone survey done on August 25, 2014, came back inconclusive. A 24-hour urine showed normal kappa free light chain at 1.29 and lambda free light chain at 1.92. Beta-2 microglobulin was normal at 1.9. IgG was normal at 826, IgA was normal at 130, IgM was high at 490. Uric acid was normal at 4.4. The patient has been evaluated at the [facility], [place] under the care of Dr. Nick Mejia. The patient had sural nerve biopsy which came back negative. He has also a good bone marrow aspiration biopsy, which was also negative, but molecular studies showed mutation detected at C.794T more than C of NYD88 mutation, suggestive of Waldenstrom macroglobulinemia. The patient started treatment with ibrutinib 420 mg daily in November 2014, which was stopped in July 2015 because of progression of his disease. The patient started treatment with CARD chemotherapy with carfilzomib, rituximab and dexamethasone on May 14, 2015. The patient is here today for his cycle #6 of CARD chemotherapy for his Waldenstrom macroglobulinemia. His general condition is improving gradually. His neuropathic pain resolved completely, but continues on fentanyl patch with doses ranging from 12 mcg to 50mcg q.72 hours. 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 The patient started treatment with cyclophosphamide with rituximab and dexamethasone on September 25, 2015. He stopped taking cyclophosphamide because of the side effects, and he is maintained on rituximab and dexamethasone with stabilization of his IgM level and monoclonal protein. PAST MEDICAL HISTORY 1. Hypertension. 2. Hypertriglyceridemia. 3. Gout. 4. Gouty arthritis. 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 PAST SURGICAL HISTORY 1. Cholecystectomy. 2. Appendectomy. 3. Bilateral hip arthroplasties. 4. Knee arthroscopy times two. 5. Right foot surgery. FAMILY HISTORY Father had chronic leukemia, most probably CLL. SOCIAL HISTORY Patient is . He has two daughters. 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 He drinks alcohol socially. He chews tobacco, but denies smoking tobacco and denies any abuse of illicit drugs. CURRENT MEDICATIONS 1. Amitriptyline 50 mg at bedtime. 2. Fentanyl patch 50 mcg q.72 hours. 3. Ambien 12.5 mg at bedtime p.r.n. 4. Lyrica 50 mg four tablets at bedtime. 5. Ativan 1 mg q.4-6 hours p.r.n. for anxiety. 6. Lipitor 80 mg at bedtime. 7. Vitamin D3 at 50,000 units orally daily. 8. CoQ10 at 200 mg daily. ALLERGIES No known drug allergies. REVIEW OF SYSTEMS A 12-point review of systems is performed and is negative except as stated above. PHYSICAL EXAMINATION VITAL SIGNS: Weight 105.4 kg. BP 130/90, P 72, R 16, temp 96.7, O2 sat 96%. GENERAL: Patient is a well-developed, well-nourished, but fatigued-appearing male in no acute distress. HEAD: Normocephalic, atraumatic. EYES: Sclerae anicteric. MOUTH: Moist mucous membranes. NECK: Supple. No palpable adenopathy. LUNGS: Clear bilaterally. CARDIOVASCULAR: Heart rate regular, 72 per minute, without murmur, S3, or S4. EXTREMITIES: No edema. NEUROLOGIC: Nonfocal. LABORATORY No labs today. 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 1. Waldenstrom macroglobulinemia. Continue Rituxan every two months, next due on 06/08/18. Most recent IgM has remained stable at 36. 2. Peripheral neuropathy. This is due to his Waldenstrom macroglobulinemia. He continues on Lyrica 200 mg b.i.d. as well as a fentanyl patch. This has recently been increased from 25 mcg to 50 mcg patch. I have refilled this for him today. 3. Hemoptysis. Fairly recent onset. Chest x-ray on 03/27/18 showed clear lungs. CBC is within normal limits with a recent hemoglobin of 16.0. He underwent CT of the chest today. He has a followup appointment with Dr. Tyson on 04/16/18 for possible endoscopy versus bronchoscopy. 4. Follow up on 06/01/18 for lab and with Dr. Glaser on 06/08/18 for continued Rituxan. MTDD
[2018-05-07 08:28] VITALS: BP 136/67
[2018-05-07] MEDS: HEPARIN FLSH (PORT) 500 UN/5ML IVP PRN (08:42)
--- NOTE | 2018-05-08 14:08 | NUR ---
Nurse contacted Dr. Glaser regarding patient continuing on acyclovir. He stated that he wants the patient to remain on acyclovir prophylaxis as long as he is receiving Rituxan. Nurse contacted the patient's , Pricila, and notified her. She verbalized understanding and states that he does not need any refills at this time.
[2018-06-01 08:39] VITALS: BP 117/69
[2018-06-01] MEDS: HEPARIN FLSH (PORT) 500 UN/5ML IVP PRN (08:53)
[2018-06-01 08:56] LABS: PLATELET COUNT, AUTOMATED 170 K/uL (150-450)
[~2018-06-08] VITALS: Ht 171.4 cm; Wt 108.2 kg
[~2018-06-08 08:27] MED LIST changes: +ALTEPLASE RECOMB 2 MG VIAL IVP PRN; +DEXTROSE 5%(*) 100 ML BAG 100 ML IVPB PRN; +IOPAMIDOL 76% 50 ML INFUS BTL 100 ML ONE; +LIDOCAINE/SOD BICARB 8.4% SYR ID PRN; +NS(*) 0.9% 100 ML BAG 100 ML IVPB PRN; +NS(*) 0.9% 500 ML BAG 500 ML IV PRN; +WATER FOR INJ,STERILE 20 ML IVP PRN
[2018-06-08 08:46] VITALS: BP 119/85
[2018-06-08] MEDS ORDERED: DEXAMETHASONE SOD PHOS 10MG/ML IVP PRN (09:15)
[2018-06-08] MEDS: HEPARIN FLSH (PORT) 500 UN/5ML IVP PRN (09:25)
[2018-06-08] MEDS ORDERED: RITUXIMAB IV ONE (09:40)
[2018-06-08] MEDS ORDERED: [UNRECOGNIZED DRUG - OTHER] IV ONE (09:40)
[2018-06-08] MEDS ORDERED: TEST100V6 IM (11:48)
[2018-06-08 12:52] VITALS: BP 103/79
--- NOTE | 2018-06-08 16:40 | ONCOLOGY FOLLOW UP NOTE ---
EVENT DATE: June 08, 2018 CHIEF COMPLAINT Followup for Waldenstrom macroglobulinemia. HISTORY OF PRESENT ILLNESS Patient is a 67-year-old male who was seen today to receive maintenance Rituxan. He tolerates this fairly well. He developed hemoptysis in March 2018. CT scan and chest x-ray were nondiagnostic. He underwent bronchoscopy per Dr. Tyson, but no explanation for this was given. He has an appointment with Dr. García next week. His biggest issue is that of chronic neuropathic pain. He continues on Lyrica. Fentanyl dose was increased to 50 mcg q.72 hours, which he feels is doing fairly well. He sleeps very poorly, and his relates that he is often restless. ONCOLOGY HISTORY The patient is a 67-year-old male who was followed in the past for erythrocytosis, treated with phlebotomies, and his counts normalized. He presented recently with worsening neuropathy of the right lower extremity. He has been treated for gout with allopurinol and for the neuropathy with gabapentin. He saw a neurologist who diagnosed him with neuropathy, and during his evaluation for neuropathy, the patient was found to have 0.6 g/dL IgM lambda light chain specificity of monoclonal protein. He was also found to have serum IgM level of 751. Patient has been evaluated by Dr. Cornejo who requested a bone marrow test which was done on August 20, 2014, and reports the bone marrow was hypercellular for age, 50% to 75% with trilineage hematopoiesis with maturation, and mild dyspneic cardiopoiesis. There was no evidence of bone marrow involvement by lymphoplasmacytic lymphoma. His peripheral blood did reveal the presence of rare circulating plasmacytoid and large granular lymphocytes. No flow cytometry, FISH, cytogenetic, or molecular studies done from the bone marrow. CT chest, abdomen, and pelvis done on August 18, 2014, showed normal- sized spleen, normal-appearing lymph nodes in the chest, abdomen, and pelvis, with right inguinal hernia containing omentum, with small, hypodense lesion within the left lobe of the liver medial segment, most likely representing a focal fatty infiltration. On August 15, 2014, patient had beta 2-microglobulin which was normal at 1.7. Serum viscosity was normal at 1.29. IgG was normal at 843. IgA was normal at 123. IgM was high at 551. Hepatitis surface antigen was negative. Hepatitis B core IgM was also negative. Hepatitis A antibody IgM was negative. Hepatitis C antibody by RICKY was negative. Hepatitis B core was negative. Uric acid was normal at 4.3. Cold agglutinin was also negative. Skeletal bone survey done on August 25, 2014, came back inconclusive. A 24-hour urine showed normal kappa free light chain at 1.29 and lambda free light chain at 1.92. Beta-2 microglobulin was normal at 1.9. IgG was normal at 826, IgA was normal at 130, IgM was high at 490. Uric acid was normal at 4.4. The patient has been evaluated at the [facility] under the care of Dr. Nick Mejia. The patient had sural nerve biopsy which came back negative. He has also a good bone marrow aspiration biopsy, which was also negative, but molecular studies showed mutation detected at C.794T more than C of NYD88 mutation, suggestive of Waldenstrom macroglobulinemia. The patient started treatment with ibrutinib 420 mg daily in November 2014, which was stopped in July 2015 because of progression of his disease. The patient started treatment with CARD chemotherapy with carfilzomib, rituximab and dexamethasone on May 14, 2015. The patient is here today for his cycle #6 of CARD chemotherapy for his Waldenstrom macroglobulinemia. His general condition is improving gradually. His neuropathic pain resolved completely, but continues on fentanyl patch with doses ranging from 12 mcg to 50mcg q.72 hours. 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 The patient started treatment with cyclophosphamide with rituximab and dexamethasone on September 25, 2015. He stopped taking cyclophosphamide because of the side effects, and he is maintained on rituximab and dexamethasone with stabilization of his IgM level and monoclonal protein. PAST MEDICAL HISTORY 1. Hypertension. 2. Hypertriglyceridemia. 3. Gout. 4. Gouty arthritis. 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 PAST SURGICAL HISTORY 1. Cholecystectomy. 2. Appendectomy. 3. Bilateral hip arthroplasties. 4. Knee arthroscopy times two. 5. Right foot surgery. FAMILY HISTORY Father had chronic leukemia, most probably CLL. SOCIAL HISTORY Patient is . He has two daughters. 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 He drinks alcohol socially. He chews tobacco, but denies smoking tobacco and denies any abuse of illicit drugs. CURRENT MEDICATIONS 1. Cymbalta 60 mg daily. 2. Fentanyl patch 50 mcg q.72 hours. 3. Ambien 12.5 mg at bedtime p.r.n. 4. Lyrica 50 mg four tablets at bedtime. 5. Ativan 1 mg q.4-6 hours p.r.n. for anxiety. 6. Lipitor 80 mg at bedtime. 7. Vitamin D3 at 50,000 units orally daily. 8. CoQ10 at 200 mg daily. 9. Testosterone injections every two weeks. ALLERGIES No known drug allergies. REVIEW OF SYSTEMS A 12-point review of systems is performed and is negative except as stated above. PHYSICAL EXAMINATION VITAL SIGNS: BP 119/85, P 80, R 16, temp 97.9, O2 sat 92%. GENERAL: Patient is a well-developed, well-nourished male in no acute distress. HEAD: Normocephalic, atraumatic. EYES: Sclerae anicteric. MOUTH: Moist mucous membranes. No lesions. NECK: Supple. No adenopathy. LUNGS: Clear bilaterally. CARDIOVASCULAR: Heart rate regular, 80 per minute, without murmur, S3, or S4. EXTREMITIES: No edema. NEUROLOGIC: Nonfocal. LABORATORY CBC on 06/01/18 showed a WBC of 4.5, hemoglobin 16.8, hematocrit 48.8, platelets 170,000. CMP was within normal limits except for a total bilirubin 1.8. IgM 29. IMPRESSION The patient is a 67-year-old male with Waldenstrom macroglobulinemia with IgM paraproteinemia and IgM lambda monoclonal protein, currently receiving treatment with rituximab every two months. PLAN 1. Waldenstrom macroglobulinemia. Continue Rituxan today and in two months. Thankfully, IgM has remained stable at 29.. 2. Peripheral neuropathy/pain. This is felt to be due to the Waldenstrom's. He continues on Lyrica 200 mg b.i.d. as well as fentanyl 50 mcg patch. He is also on Cymbalta, prescribed by Dr. Anand. We reviewed dosing. He feels this is working fairly well, but struggles with the effects of chronic pain. He describes this as occurring from the knee down. 3. Sleep. Describes his sleep as poor. His relates that he is very restless. We discussed adding hydrocodone 5/325 mg at bedtime, and he will attempt this. I spent a long time talking about the mechanism of pain management with narcotics as he has been concerned about addiction. 4. Hemoptysis. CT of the chest, chest x-ray, and bronchoscopy were all nondiagnostic. Hemoptysis is intermittent. He has an appointment to see Dr. García next week. 5. Follow up in two months for continued care, earlier if there is a problem. SHAHNAZ
== END 2018-07-11 ==
LOC: ONC 08:27
PROVIDERS: ATTEND Internal Medicine Hematology
DX: C88.0 Waldenstrom macroglobulinemia (principal); Z23 Encounter for immunization; M10.9 Gout, unspecified; K21.9 Gastro-esophageal reflux disease without esophagitis; I10 Essential (primary) hypertension; G62.9 Polyneuropathy, unspecified; Z86.19 Personal history of other infectious and parasitic diseases; F17.220 Nicotine dependence, chewing tobacco, uncomplicated; R04.2 Hemoptysis
CPT/HCPCS: 71260; 82232; 83615; 83883; 84550; 85025; 86334; 96367; 96413; 96415; 96523; G0463; J1100; J1642; J7030; J7040; J9312; Q9967; 82040; 82247; 82310; 82374; 82435; 82565; 82947; 84075; 84132; 84155; 84295; 84450; 84460; 84520; 99212

== ENCOUNTER → 2018-06-18 | Outpatient (REF) | payer MEDICARE, OTHER ==
[~2018-06-18] MED LIST changes: -ALTEPLASE RECOMB 2 MG VIAL IVP PRN; -DEXTROSE 5%(*) 100 ML BAG 100 ML IVPB PRN; -IOPAMIDOL 76% 50 ML INFUS BTL 100 ML ONE; -LIDOCAINE/SOD BICARB 8.4% SYR ID PRN; -NS(*) 0.9% 100 ML BAG 100 ML IVPB PRN; -NS(*) 0.9% 500 ML BAG 500 ML IV PRN; +TEST100V6 IM; -WATER FOR INJ,STERILE 20 ML IVP PRN
== END ==
LOC: ZZSENDIN 10:45
PROVIDERS: ATTEND Otolaryngology
DX: R04.2 Hemoptysis (principal)
CPT/HCPCS: 82274

== ENCOUNTER → 2018-07-20 | Outpatient (CLI) | payer MEDICARE, OTHER | LOC: RESP 19:52 | PROVIDERS: ATTEND Family Medicine | DX: G47.33 Obstructive sleep apnea (adult) (pediatric) (principal); G47.37 Central sleep apnea in conditions classified elsewhere; G47.36 Sleep related hypoventilation in conditions classified elsewhere ==

== ENCOUNTER → 2018-09-06 | Outpatient (CLI) | payer MEDICARE, OTHER ==
[~2018-09-06] MED LIST changes: +BARIUM SULFATE 176 GM BTL PO ONE; +BARIUM SULFATE 340 GM POWD ONE; +CEFPR500PT PO
--- NOTE | 2018-09-06 10:04 | RADIOLOGY IMAGING REPORT ---
FACILITY: [facility] PATIENT NAME: Bernardo Miller : 1950 MR: [id number] V: [id number] EXAM DATE: ORDERING PHYSICIAN: JOSE HOLLIDAY TECHNOLOGIST: Location: [facility] [place] Patient: Bernardo Miller : 1950 Visit/Account:[id number] Date of Sevice: 09/06/2018 ESOPHAGRAM HISTORY: dysphagia air contrast esophagram. FINDINGS: Effervescent crystals and both thick and thin barium preparations suggested with fluoroscopic imaging obtained in upright oblique, lateral, AP and prone oblique positioning. FINDINGS: The study demonstrated normal pharyngeal and esophageal swallowing mechanism and motility. No esopha geal mass lesions, strictures or mucosal abnormalities. Lateral cervical esophagram demonstrated a s mall cricopharyngeus muscle impression. No Zenker's diverticulum noted. No cervical esophageal path ology noted. In the recumbent position the patient was noted to have trace intermittent episodes of reflux. Barium pill passed easily. Visualized stomach duodenum and proximal jejunal bowel loops are unremarkable. IMPRESSION: 1. Unremarkable esophagram other than a small crack a previous muscle impression and trace reflux no heath in the recumbent position. Fluoroscopic time of four minutes. DAP [id number] Report Dictated By: Giancarlo Guzmán MD at 09/06/2018 9:56 AM Report E-Signed By: Giancarlo Guzmán MD at 09/06/2018 10:00 AM WSN:[id number]
== END ==
LOC: RAD 01:40
PROVIDERS: ATTEND Physician Assistant
DX: R13.12 Dysphagia, oropharyngeal phase (principal)
CPT/HCPCS: 74220

== ENCOUNTER → 2018-10-17 | Outpatient (CLI) | payer MEDICARE, OTHER ==
[~2018-10-17] MED LIST changes: -BARIUM SULFATE 176 GM BTL PO ONE; -BARIUM SULFATE 340 GM POWD ONE; +DEXL60CA6 PO; +IOPAMIDOL 76% 100 ML INFUS BTL 100 ML ONE
--- NOTE | 2018-10-17 12:50 | RADIOLOGY IMAGING REPORT ---
FACILITY: [facility] PATIENT NAME: Bernardo Miller : 1950 MR: [id number] V: [id number] EXAM DATE: ORDERING PHYSICIAN: JOSE HOLLIDAY TECHNOLOGIST: Location: [facility] - [place] Patient: Bernardo Miller : 1950 Visit/Account:[id number] Date of Sevice: 10/17/2018 Study: CT scan of the neck with intravenous contrast Indication: Globus sensation, sinusitis Contrast utilized: 75 mL Isovue 370 Technique: Multiple axial images were obtained through the neck following the intravenous administrat ion of iodinated contrast. Coronal and sagittal two-dimensional reconstructions were made from the original data set. One of the following dose optimization techniques was utilized in the performance of this exam: Autom ated exposure control; adjustment of the mA and/or kV according to the patient's size; or use of an i terative reconstruction technique. Specific details can be referenced in the facility's radiology C T exam operational policy. The examination demonstrates no evidence of abnormality of the airway. The tongue base and floor of m outh are unremarkable. There is no evidence of abnormality of the larynx. The thyroid gland is unremarkable. There is no evidence of abnormality of the submandibular or paroti d glands. There is no significant cervical adenopathy identified. Incidental note is made of a retention cyst within the right maxillary antrum. The visualized intracranial anatomy is unremarkable. The visualized superior mediastinum and lung api nichole are unremarkable. There is mild degenerative disease of the cervical spine. IMPRESSION: No significant abnormality identified. There is no evidence of abnormality of the pharynx or larynx. Report Dictated By: Donell Chavez at 10/17/2018 12:34 PM Report E-Signed By: Donell Chavez at 10/17/2018 12:45 PM WSN:[id number]
--- NOTE | 2018-10-17 12:53 | RADIOLOGY IMAGING REPORT ---
FACILITY: [facility] PATIENT NAME: Bernardo Miller : 1950 MR: [id number] V: [id number] EXAM DATE: ORDERING PHYSICIAN: JOSE HOLLIDAY TECHNOLOGIST: Location: [facility] Patient: Bernardo Miller : 1950 Visit/Account:[id number] Date of Sevice: 10/17/2018 Study: CT scan of the paranasal sinuses Indication:Sinusitis Comparison study:None Technique: Multiple axial images were obtained through the paranasal sinuses. Coronal and sagittal 2- dimensional reconstructions were made from the original data set. One of the following dose optimization techniques was utilized in the performance of this exam: Autom ated exposure control; adjustment of the mA and/or kV according to the patient's size; or use of an i terative reconstruction technique. Specific details can be referenced in the facility's radiology C T exam operational policy. Findings: Maxillary sinuses: There is a retention cyst within the inferior right maxillary antrum. The left max illary sinus is unremarkable. Ethmoid air cells:Unremarkable Sphenoid sinus:Unremarkable Frontal sinus:Unremarkable Ostiomeatal units:Patent bilaterally Nasal septum:Midline IMPRESSION:CT scan of the paranasal sinuses demonstrating the presence of a retention cyst within the inferior right maxillary antrum. The paranasal sinuses are otherwise unremarkable. Report Dictated By: Donell Chavez at 10/17/2018 12:45 PM Report E-Signed By: Donell Chavez at 10/17/2018 12:47 PM WSN:[id number]
== END ==
LOC: CT 00:50
PROVIDERS: ATTEND Physician Assistant
DX: J32.9 Chronic sinusitis, unspecified (principal); R09.89 Other specified symptoms and signs involving the circulatory and respiratory systems
CPT/HCPCS: 70486; 70491; Q9967

== ENCOUNTER 2018-10-19 08:16 | Outpatient (RCR) | payer MEDICARE, OTHER ==
[2018-07-26 13:20] VITALS: BP 113/81
[2018-07-26] MEDS: HEPARIN FLSH (PORT) 500 UN/5ML IVP PRN (13:25)
[2018-07-26 14:04] LABS: PLATELET COUNT, AUTOMATED 160 K/uL (150-450)
[2018-08-03 08:45] VITALS: BP 108/68
[2018-08-03] MEDS: DEXAMETHASONE SOD PHOS 10MG/ML IVP PRN (09:08)
--- NOTE | 2018-08-03 11:23 | EL-TARABILY ONCOLOGY NOTE ---
EVENT DATE: August 03, 2018 DIAGNOSES 1. IgM paraproteinemia, highly suspicious for Waldenstrom macroglobulinemia. 2. 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 3. Pain due to neuropathy. CHIEF COMPLAINT The patient is here today for followup of his Waldenstrom macroglobulinemia, on treatment with rituximab. ONCOLOGY HISTORY The patient is a 67-year-old male who was followed in the past for erythrocytosis, treated with phlebotomies, and his counts normalized. He presented recently with worsening neuropathy of the right lower extremity. He has been treated for gout with allopurinol and for the neuropathy with gabapentin. He saw a neurologist who diagnosed him with neuropathy, and during his evaluation for neuropathy, the patient was found to have 0.6 g/dL IgM lambda light chain specificity of monoclonal protein. He was also found to have serum IgM level of 751. Patient has been evaluated by Dr. Cornejo who requested a bone marrow test which was done on August 20, 2014, and reports the bone marrow was hypercellular for age, 50% to 75% with trilineage hematopoiesis with maturation, and mild dyspneic cardiopoiesis. There was no evidence of bone marrow involvement by lymphoplasmacytic lymphoma. His peripheral blood did reveal the presence of rare circulating plasmacytoid and large granular lymphocytes. No flow cytometry, FISH, cytogenetic, or molecular studies done from the bone marrow. CT chest, abdomen, and pelvis done on August 18, 2014, showed normal- sized spleen, normal-appearing lymph nodes in the chest, abdomen, and pelvis, with right inguinal hernia containing omentum, with small, hypodense lesion within the left lobe of the liver medial segment, most likely representing a focal fatty infiltration. On August 15, 2014, patient had beta 2-microglobulin which was normal at 1.7. Serum viscosity was normal at 1.29. IgG was normal at 843. IgA was normal at 123. IgM was high at 551. Hepatitis surface antigen was negative. Hepatitis B core IgM was also negative. Hepatitis A antibody IgM was negative. Hepatitis C antibody by RICKY was negative. Hepatitis B core was negative. Uric acid was normal at 4.3. Cold agglutinin was also negative. Skeletal bone survey done on August 25, 2014, came back inconclusive. A 24-hour urine showed normal kappa free light chain at 1.29 and lambda free light chain at 1.92. Beta-2 microglobulin was normal at 1.9. IgG was normal at 826, IgA was normal at 130, IgM was high at 490. Uric acid was normal at 4.4. The patient has been evaluated at the [facility] under the care of Dr. Nick Mejia. The patient had sural nerve biopsy which came back negative. He has also a good bone marrow aspiration biopsy, which was also negative, but molecular studies showed mutation detected at C.794T more than C of NYD88 mutation, suggestive of Waldenstrom macroglobulinemia. The patient started treatment with ibrutinib 420 mg daily in November 2014, which was stopped in July 2015 because of progression of his disease. The patient started treatment with CARD chemotherapy with carfilzomib, rituximab and dexamethasone on May 14, 2015. The patient is here today for his cycle #6 of CARD chemotherapy for his Waldenstrom macroglobulinemia. His general condition is improving gradually. His neuropathic pain resolved completely, but on decreasing the dose of fentanyl patch from 25 to 12 mcg q.72 hours, his pain restarted becoming more annoying to him. Currently with 25 mcg, the patient is free of pain and free of any complaints currently. 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 The patient started treatment with cyclophosphamide with rituximab and dexamethasone on September 25, 2015. The patient quit taking cyclophosphamide because of the side effect, and he is maintained on rituximab and dexamethasone with stabilization of his IgM level and monoclonal protein. HISTORY OF PRESENT ILLNESS Patient is here today for followup of his Waldenstrom macroglobulinemia, on treatment with rituximab. He continues to have pain in his left lower extremity and recently he has another pain near the left knee where he had some fall at that time. He has pain in the legs also. He is weak, tired and fatigued. PAST MEDICAL HISTORY 1. Hypertension. 2. Hypertriglyceridemia. 3. Gout. 4. Gouty arthritis. 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 PAST SURGICAL HISTORY 1. Cholecystectomy. 2. Appendectomy. 3. Bilateral hip arthroplasties. 4. Knee arthroscopy times two. 5. Right foot surgery. FAMILY HISTORY Father had chronic leukemia, most probably CLL. SOCIAL HISTORY Patient is . He has two daughters. 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 He drinks alcohol socially. He chews tobacco, but denies smoking tobacco and denies any abuse of illicit drugs. CURRENT MEDICATIONS 1. Amitriptyline 50 mg at bedtime. 2. Fentanyl patch 25 mcg q.72 hours. 3. Ambien 12.5 mg at bedtime p.r.n. 4. Lyrica 50 mg two tablets at bedtime. 5. Ativan 1 mg q.4-6 hours p.r.n. for anxiety. 6. Lipitor 80 mg at bedtime. 7. Vitamin D3 at 50,000 units orally daily. 8. CoQ10 at 200 mg daily. ALLERGIES No known drug allergies. REVIEW OF SYSTEMS CONSTITUTIONAL: No appetite or weight change. No fever, chills, or sweating. No recent infection. HEENT: Ears: No tinnitus or hearing problem. Nose: No nasal discharge or epistaxis. Throat: No sore throat or mouth ulcers. Eyes: No diplopia or visual changes. RESPIRATORY: Patient has cough with hemoptysis. CARDIOVASCULAR: No chest pain, orthopnea, or paroxysmal nocturnal dyspnea (PND). No edema. No palpitations. GASTROINTESTINAL: No nausea or vomiting. No diarrhea or constipation. No change in bowel movements. No heartburn or swallowing difficulties. No abdominal pain. No jaundice. No hematemesis, melena, or rectal bleeding. GENITOURINARY: No hematuria or dysuria. MUSCULOSKELETAL: He has pain in the legs. NEUROLOGICAL: He has tingling and numbness in the left lower extremity. He has new pain around the medial side of the left knee but this happened after a recent fall. HEMATOLOGIC/LYMPHATIC: He is weak, tired and fatigued. SKIN: No skin rash or lumps. PSYCHIATRIC: No anxiety or depression. PHYSICAL EXAMINATION GENERAL: Looks stable. Well developed, well nourished, and in no acute distress. VITAL SIGNS: Blood pressure 108/68, pulse 64 per minute, respirations 18 per minute, temperature 98, pulse ox 87% on room air. HEENT: Head: Atraumatic. No sinus tenderness to palpation. Eyes: No icterus or conjunctivitis. Mouth and throat: No oral thrush or mucositis. NECK: Supple. No cervical or supraclavicular lymphadenopathy. LUNGS: Clear to auscultation and percussion bilaterally. HEART: Regular rate and rhythm. No gallops, murmurs, clicks, or rubs. ABDOMEN: Soft and lax. No tenderness. No hepatosplenomegaly. No masses. EXTREMITIES: No cyanosis, clubbing, or edema. LYMPHATICS: No peripheral lymphadenopathy. NEUROLOGICAL: Conscious, alert, and oriented times three. No focal motor or sensory deficits. PSYCHIATRIC: Mood and affect appear normal. SKIN: No skin rash, bruise, or purpuric eruption. DIAGNOSTIC DATA CBC showed white count 5.7, hemoglobin 18.1, hematocrit 54.6, platelets 160,000. Chem panel normal except for total bilirubin 1.6. Serum protein immunoelectrophoresis shows a faint band in the IgM lambda, suggestive of a specific immuno response or early monoclonal protein. IgG level was 264, which is low. IgA level was 26, which is also low. IgA level is 36, within normal range. Shafer free light chain is 0.13, which is low. Lambda free light chain is 0.16, which is also low. ASSESSMENT 1. Waldenstrom macroglobulinemia with IgM paraproteinemia with IgM lambda monoclonal protein. Patient currently on treatment with rituximab every two months. He is doing currently very well except recently he started to have pain, especially in the last two weeks with the infusion of rituximab, which is given every two months. His myeloma profile is nearly normal. Serum protein electrophoresis showed a faint band in IgM lambda, which is stable. IgM level is 36, which is also stable. Patient treated initially with ibrutinib with initial response and on progression started treatment with CaRD chemotherapy with Kyprolis, rituximab, and dexamethasone between May 14, 2015 through August 28, 2015, and patient received six courses with response but he developed Kyprolis-induced cardiomyopathy so the treatment was stopped after that. He received after that treatment with rituximab, dexamethasone, and cyclophosphamide but he stopped cyclophosphamide because of the side effect. He is currently maintained on rituximab with stabilization of his monoclonal protein. His immunoelectrophoresis shows only a faint band in the IgM lambda. I am planning to continue rituximab every six weeks as the patient has started to have worsening pain in the last two weeks between the cycles and we will if this will be helpful in controlling his pain. I will see him in six weeks from now with CBC, chem panel, LDH, uric acid, and myeloma profile. 2. Neuropathy due to Waldenstrom macroglobulinemia, currently on Lyrica but with worsening pain. He is currently receiving fentanyl patches 50 mcg and the patient has 12 mcg at home and I advised him to add the 12 mcg to the 50 mcg fentanyl patches and in the future if the pain is not under control I will increase the dose to 75 mcg. 3. Insomnia. Patient had sleep studies and going to see Dr. Harp. 4. History of shingles of the head and neck. He is on prophylactic Valtrex. 5. Gout with gouty arthritis, on allopurinol. 6. Gastroesophageal reflux disease, on Protonix. PLAN 1. Rituximab as per schedule. 2. Patient to return in six weeks with CBC, chem panel, LDH, uric acid and myeloma profile. 3. Fentanyl 62 mcg every 72 hours. 4. Girard 5/325 mg every fours hours p.r.n. for pain. 5. Ambien p.r.n. for insomnia. 6. Continue Lyrica. 7. Patient is to contact us for any new concerns or complaints. MTDD
[2018-09-07 09:04] VITALS: BP 126/68
[2018-09-07 09:08] LABS: PLATELET COUNT, AUTOMATED 163 K/uL (150-450)
[2018-09-07] MEDS: HEPARIN FLSH (PORT) 500 UN/5ML IVP PRN (09:09)
[2018-09-14 08:14] VITALS: BP 127/83
[2018-09-14] MEDS: DEXAMETHASONE SOD PHOS 10MG/ML IVP PRN (08:34)
[2018-09-14 12:08] VITALS: BP 100/87
[2018-09-14] MEDS: HEPARIN FLSH (PORT) 500 UN/5ML IVP PRN (12:20)
[2018-10-02 14:28] VITALS: BP 104/66
--- NOTE | 2018-10-02 21:09 | ONCOLOGY FOLLOW UP NOTE ---
EVENT DATE: October 02, 2018 CHIEF COMPLAINT Followup for Waldenstrom macroglobulinemia. HISTORY OF PRESENT ILLNESS The patient is a 67-year-old male who was seen today in followup. He had been receiving Rituxan on an every eight-week basis, but developed increasing leg pain. Dr. Glaser has changed his protocol to every six weeks, next due on 10/26/18. He and his present today to discuss the possibility of IVIG. His IgG levels have been in the 200s over the past two years. His most recent IgG on 09/14/18 was 220. However, he has not had a history of recurrent infections and "can't remember the last time I had a cold." Interestingly, he stopped his atorvastatin approximately three weeks ago and notes improvement in his leg pain. He is now on 62 mcg of fentanyl, but has not needed to use any Narberth for breakthrough pain. Otherwise, he feels well. He has lost a total of 5 kg in the past three months, which has been purposeful. He has recently been seen by ENT for complaints of globus and has known Malik esophagus. He was switched from pantoprazole b.i.d. to Dexilant, although they have not been able to obtain that medication as of yet. ONCOLOGY HISTORY The patient is a 67-year-old male who was followed in the past for erythrocytosis, treated with phlebotomies, and his counts normalized. He presented with worsening neuropathy of the right lower extremity. He has been treated for gout with allopurinol and for the neuropathy with gabapentin. He saw a neurologist who diagnosed him with neuropathy, and during his evaluation for neuropathy, the patient was found to have 0.6 g/dL IgM lambda light chain specificity of monoclonal protein as well as a serum IgM level of 751. Bone marrow test which was done on August 20, 2014 was hypercellular for age, 50-75% with trilineage hematopoiesis with maturation. There was no evidence of bone marrow involvement by lymphoplasmacytic lymphoma. His peripheral blood did reveal the presence of rare circulating plasmacytoid and large granular lymphocytes. No flow cytometry, FISH, cytogenetic, or molecular studies done from the bone marrow. CT chest, abdomen, and pelvis done on August 18, 2014, showed normal-sized spleen, normal-appearing lymph nodes in the chest, abdomen, and pelvis, with right inguinal hernia containing omentum, with small, hypodense lesion within the left lobe of the liver medial segment, most likely representing a focal fatty infiltration. Beta 2-microglobulin which was normal at 1.7. Serum viscosity was normal at 1.29. IgG was normal at 843. IgA was normal at 123. IgM was high at 551. Hepatitis panel was negative. Uric acid was normal at 4.3. Cold agglutinin was also negative. Skeletal bone survey done on August 25, 2014 was inconclusive. A 24-hour urine showed normal kappa free light chain at 1.29 and lambda free light chain at 1.92. IgG was normal at 826, IgA was normal at 130, IgM was high at 490. Uric acid was normal at 4.4. The patient was evaluated at the [facility]; sural nerve biopsy was negative. Repeat bone marrow was also negative, but molecular studies showed mutation detected at C.794T more than C of NYD88 mutation, suggestive of Waldenstrom macroglobulinemia. The patient started treatment with ibrutinib 420 mg daily in November 2014, which was stopped in July 2015 because of progression of his disease. 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 The patient started treatment with cyclophosphamide with rituximab and dexamethasone on September 25, 2015. He stopped taking cyclophosphamide because of the side effects, and he is maintained on rituximab and dexamethasone with stabilization of his IgM level and monoclonal protein. MEDICAL HISTORY 1. Hypertension. 2. Hypertriglyceridemia. 3. Gout. 4. Gouty arthritis. 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 7. Waldenstrom macroglobulinemia. SURGICAL HISTORY 1. Cholecystectomy. 2. Appendectomy. 3. Bilateral hip arthroplasties. 4. Knee arthroscopy times two. 5. Right foot surgery. FAMILY HISTORY Father had chronic leukemia, most likely CLL. SOCIAL HISTORY Patient is . He has two daughters. 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 He drinks alcohol socially. He chews tobacco, but denies smoking tobacco and denies any abuse of illicit drugs. CURRENT MEDICATIONS 1. Cymbalta 90 mg daily. 2. Fentanyl patch 62 mcg q.72 hours. 3. Lyrica 200 mg b.i.d. 4. Ativan 1 mg p.r.n. 5. Vitamin D3, 50,000 International Units daily. 6. CoQ10 at 200 mg daily. 7. Testosterone injections q.2 weeks. 8. Trazodone 200 mg at bedtime. 9. Tamsulosin. 10. Valtrex 500 mg daily. 11. Dexilant 60 mg daily. ALLERGIES No known drug allergies. REVIEW OF SYSTEMS A 12-point review of systems is performed and is negative except as stated above. PHYSICAL EXAMINATION VITAL SIGNS: Weight 103 kg. BP 104/66, P 66, R 16, temp 98.7, O2 sat 90%. GENERAL: Patient is a well-developed, well-nourished male in no acute distress. HEAD: Normocephalic, atraumatic. EYES: Sclerae anicteric. MOUTH: Moist mucous membranes. NECK: Supple. No adenopathy. LUNGS: Clear bilaterally. CARDIOVASCULAR: Heart rate regular, 66 per minute, without murmur, S3, or S4. EXTREMITIES: No edema. NEUROLOGIC: Nonfocal. LABORATORY No lab today. IMPRESSION The patient is a 67-year-old male with Waldenstrom macroglobulinemia with IgM paraproteinemia and IgM lambda monoclonal protein. He has been receiving rituximab on an every eight-week basis, but recently decreased to every six weeks in August 2018 due to pain. PLAN 1. Waldenstrom macroglobulinemia. Continue Rituxan q.6 weeks, next due 10/27/18. He will have labs drawn on 10/19/18. 2. Peripheral neuropathy/leg pain. Interestingly, he feels this has improved somewhat since he has discontinued his atorvastatin. He continues on Lyrica, Cymbalta, and is now on fentanyl 62 mcg patch q.72 hours. He feels this is controlling things well. 3. Hypogammaglobulinemia. IgG's have been in the 200 range for the last two years. He has not had any issues with recurrent infections. He wonders "if I need IVIG." I reviewed this with Dr. Glaser who felt this was not necessary. Patient is informed and states he is "glad he doesn't have to take it". 4. GI. Issues with GERD with globus sensation. Pantoprazole was recently changed to Dexilant, and they are working on obtaining that medication. 5. Follow up for lab on 10/19/18 and for his next dose of Rituxan on 10/26/18. MTDD
[~2018-10-19] VITALS: Ht 171.4 cm; Wt 103.0 kg
[~2018-10-19 08:16] MED LIST changes: +ACETAMINOPHEN 325 MG TAB PO PRN; +ALTEPLASE RECOMB 2 MG VIAL IVP PRN; +DEXTROSE 5%(*) 100 ML BAG 100 ML IVPB PRN; -IOPAMIDOL 76% 100 ML INFUS BTL 100 ML ONE; +LIDOCAINE/SOD BICARB 8.4% SYR ID PRN; +NS(*) 0.9% 100 ML BAG 100 ML IVPB PRN; +NS(*) 0.9% 500 ML BAG 500 ML IV PRN; +RITUXIMAB IV ONE; +WATER FOR INJ,STERILE 20 ML IVP PRN; +[UNRECOGNIZED DRUG - OTHER] IV ONE; +diphenhydrAMINE 25 MG CAP PO PRN
[2018-10-19 08:21] VITALS: BP 133/82
[2018-10-19] MEDS: HEPARIN FLSH (PORT) 500 UN/5ML IVP PRN (08:41)
[2018-10-19 08:45] LABS: PLATELET COUNT, AUTOMATED 138 K/uL (150-450)
[2018-10-24] MEDS ORDERED: IPRA15SP7 NS (08:53)
== END 2018-10-23 ==
LOC: SPU 08:16
PROVIDERS: ATTEND Internal Medicine Hematology
DX: Z51.11 Encounter for antineoplastic chemotherapy (principal); C88.0 Waldenstrom macroglobulinemia; G89.3 Neoplasm related pain (acute) (chronic); G62.9 Polyneuropathy, unspecified; D80.1 Nonfamilial hypogammaglobulinemia; K21.9 Gastro-esophageal reflux disease without esophagitis; Z79.899 Other long term (current) drug therapy
CPT/HCPCS: 36591; 82232; 83615; 83883; 84550; 85025; 86334; 96367; 96375; 96413; 96415; G0463; J1100; J1642; J7030; J7050; J9312; 82040; 82247; 82310; 82374; 82435; 82565; 82947; 84075; 84132; 84155; 84295; 84450; 84460; 84520; 99212

== ENCOUNTER 2018-11-12 00:37 | Day surgery (SDC) | payer MEDICARE, OTHER ==
--- NOTE | 2018-11-07 15:13 | EKG ---
[place] [facility] [place] NAME: ERIK CARMICHAEL : [id number] MR: [id number] V: [id number] EXAM DATE: ORDERING PHYSICIAN: YANET RIGGINS TECHNOLOGIST: MARIXA Test Reason : PRE OP Blood Pressure : / mmHG Vent. Rate : 057 BPM Atrial Rate : 057 BPM P-R Int : 226 ms QRS Dur : 096 ms QT Int : 446 ms P-R-T Axes : 061 035 038 degrees QTc Int : 434 ms Sinus bradycardia with 1st degree AV block No acute appearing findings When compared with ECG of 30-APR-2018 06:28, No significant change was found Confirmed by ABHISHEK WEBER ([id number]) on 11/07/2018 4:24:10 PM Referred By: JONATHAN Confirmed By:ABHISHEK WEBER
[~2018-11-12] VITALS: Ht 175.3 cm; Wt 96.6 kg
[~2018-11-12 00:37] MED LIST changes: -ACETAMINOPHEN 325 MG TAB PO PRN; -ALTEPLASE RECOMB 2 MG VIAL IVP PRN; -DEXTROSE 5%(*) 100 ML BAG 100 ML IVPB PRN; +IPRA15SP7 NS; -LIDOCAINE/SOD BICARB 8.4% SYR ID PRN; -NS(*) 0.9% 100 ML BAG 100 ML IVPB PRN; -NS(*) 0.9% 500 ML BAG 500 ML IV PRN; -RITUXIMAB IV ONE; -WATER FOR INJ,STERILE 20 ML IVP PRN; -[UNRECOGNIZED DRUG - OTHER] IV ONE; -diphenhydrAMINE 25 MG CAP PO PRN
[2018-11-12] MEDS ORDERED: fentaNYL CITR 250 MCG/5 ML AMP ONE (07:31)
[2018-11-12 07:39] VITALS: BP 127/70
[2018-11-12] MEDS ORDERED: SUGAMMADEX SOD 200 MG/2 ML SDV ONE ×2 (07:59→09:38)
[2018-11-12] MEDS ORDERED: ROCURONIUM BR 10 MG/ML 5 ML SY 5 ML ONE (07:59)
[2018-11-12] MEDS ORDERED: ONDANSETRON 4 MG/2 ML VIAL ONE (08:23)
[2018-11-12] MEDS ORDERED: DEXAMETHASONE SOD PHOS 10MG/ML ONE (08:23)
[2018-11-12] MEDS ORDERED: PROPOFOL EMUL(*) 10MG/ML 20 ML 20 ML ONE (08:23)
[2018-11-12] MEDS ORDERED: LIDOCAINE MPF 1% 5 ML VIAL ONE (08:23)
--- NOTE | 2018-11-12 10:16 | OPERATIVE REPORT 1 ---
EVENT DATE: November 12, 2018 SURGEON: Micah García MD ANESTHESIOLOGIST: Andrei Reyes MD ANESTHESIA: General endotracheal. PREOPERATIVE DIAGNOSES 1. Hemoptysis. 2. Right laryngeal lesion. POSTOPERATIVE DIAGNOSES 1. Hemoptysis. 2. Right laryngeal lesion. PROCEDURE PERFORMED 1. Micro direct laryngoscopy with biopsy of right laryngeal lesion. 2. Tracheostomy. INDICATIONS Please refer to the preoperative note. DESCRIPTION OF PROCEDURE The patient was positively identified in the preoperative area. He was accompanied there by his . Risks and benefits were explained including, but not limited to, injury of the lip, dentition, oral cavity, pharynx, larynx and those associated with anesthesia. He acknowledged understanding of those risks. He was then brought back to the operating suite, laid supine on the operating table and anesthesia was administered. Once asleep, the patient was positioned, prepped and draped in the usual sterile fashion. A tooth guard was placed over the patient's maxillary dentition. A Dedo direct laryngoscope was carefully introduced in the patient's oral cavity. The patient's tonsillar fossae, base of tongue, vallecula were clear. The bilateral piriform sinuses were clear. The esophageal inlet was clear. The larynx was notable for an irregular tissue and a heme blush just lateral to the vibratory margin of the left vocal fold. The cuff was taken down on the endotracheal tube and the endoscope was introduced into the subglottis and advanced through the trachea to the level of the marti. This was clear. A biopsy of the right laryngeal lesion was performed with a small cup forceps. This was this sent for permanent pathology. Hemostasis was obtained with a cottonoid containing Afrin solution. The patient was then returned to Anesthesia for emergence. ESTIMATED BLOOD LOSS Negligible. MTDD
[2018-11-12 10:30] VITALS: BP 127/77
[2018-11-12] MEDS ORDERED: FENT-19 TD (10:32)
[2018-11-12 10:42] VITALS: BP 129/85
[2018-11-12 10:47] VITALS: BP 129/87
[2018-11-12] MEDS ORDERED: FAMOTIDINE 20 MG TAB PO ONE (12:25)
[2018-11-12] MEDS ORDERED: MIDAZOLAM 2 MG/2 ML VIAL IVP PRN (12:25)
[2018-11-12] MEDS ORDERED: NORMOSOL R SOLN(*) 1000 ML BAG 1,000 ML IV PRN (12:25)
[2018-11-12] MEDS ORDERED: LIDOCAINE/SOD BICARB 8.4% SYR ID ONE (12:25)
== END 2018-11-12 10:30 | disposition home or self-care (01) ==
LOC: OR 00:37
PROVIDERS: ATTEND Otolaryngology
DX: R04.2 Hemoptysis (principal); G52.2 Disorders of vagus nerve; I10 Essential (primary) hypertension
CPT/HCPCS: 31536; 31600; 88305; 93005; J1100; J2001; J2405; J2704; J3010

== ENCOUNTER 2018-11-26 03:10 | Day surgery (SDC) | payer MEDICARE, OTHER ==
[~2018-11-26] VITALS: Ht 175.3 cm; Wt 96.6 kg
[2018-11-26 10:38] VITALS: BP 119/60
[2018-11-26] MEDS ORDERED: KETAMINE HCL-NS 50 MG/5 ML SYR ONE (11:06)
[2018-11-26] MEDS ORDERED: ONDANSETRON 4 MG/2 ML VIAL ONE (11:06)
[2018-11-26] MEDS ORDERED: LIDOCAINE MPF 1% 5 ML VIAL ONE (11:06)
[2018-11-26] MEDS ORDERED: DEXAMETHASONE SOD PHOS 10MG/ML ONE (11:06)
[2018-11-26] MEDS ORDERED: PROPOFOL EMUL(*) 10MG/ML 20 ML 20 ML ONE (11:06)
[2018-11-26] MEDS ORDERED: fentaNYL CITR 100 MCG/2 ML AMP ONE (11:06)
[2018-11-26] MEDS ORDERED: OXYMETAZOLINE SPRAY 15 ML BTL ONE (12:29)
[2018-11-26] MEDS ORDERED: NORMOSOL R SOLN(*) 1000 ML BAG 1,000 ML IV PRN (12:30)
[2018-11-26] MEDS ORDERED: MIDAZOLAM 2 MG/2 ML VIAL IVP PRN (12:30)
[2018-11-26] MEDS ORDERED: LIDOCAINE/SOD BICARB 8.4% SYR ID ONE (12:30)
--- NOTE | 2018-11-26 13:37 | OPERATIVE REPORT 1 ---
EVENT DATE: November 26, 2018 SURGEON: Micah García MD ANESTHESIOLOGIST: Pb Toledo MD ANESTHESIA: General endotracheal. PREOPERATIVE DIAGNOSIS Right glottic lesion. POSTOPERATIVE DIAGNOSIS Right glottic lesion. PROCEDURE PERFORMED Direct microlaryngoscopy with biopsy of right glottic lesion. INDICATIONS Please refer to the preoperative note. DESCRIPTION OF PROCEDURE The patient was positively identified in the preoperative area. He was accompanied there by his . Risks again explained, including but are not limited to injury to lip, dentition, oral cavity, pharynx, larynx, and those associated with anesthesia. He acknowledged understanding of those risks. He was then brought back to the operative suite, placed supine on the operating table and anesthesia was administered. Once asleep, the patient was positioned and then prepped and draped in the usual sterile fashion. A mouth guard was placed over the patient's maxillary dentition. A Dedo direct laryngoscope was carefully introduced in the patient's oral cavity and advanced to the level of the larynx. This was put into suspension. A telescope was utilized to evaluate the larynx. The patient had a previous biopsy of the region with insufficient pathology. Therefore, Electrocut forceps was utilized to take a series of biopsies and of the area of concern. These were sent for permanent pathology. Cottonoid containing Afrin solution was placed over the area of biopsy for hemostasis. The patient was then turned to Anesthesia for emergence. ESTIMATED BLOOD LOSS Negligible. COMPLICATIONS None. MTDD
[2018-11-26 13:41] VITALS: BP 125/71
[2018-11-26 13:55] VITALS: BP 106/85
[2018-11-26 13:57] VITALS: BP 110/75
== END 2018-11-26 13:40 | disposition home or self-care (01) ==
LOC: OR 03:10
PROVIDERS: ATTEND Otolaryngology
DX: J38.3 Other diseases of vocal cords (principal); I10 Essential (primary) hypertension; I11.0 Hypertensive heart disease with heart failure; I50.9 Heart failure, unspecified; K21.9 Gastro-esophageal reflux disease without esophagitis; E78.5 Hyperlipidemia, unspecified; G47.30 Sleep apnea, unspecified; Z79.82 Long term (current) use of aspirin
CPT/HCPCS: 31536; 94667; A9270; J1100; J2001; J2405; J2704; J3010; J3490